=== PATIENT | male | born 1955 | race Two or more races ===

== ENCOUNTER → 2017-06-18 | Outpatient (CLI) | payer BC ==
[2017-06-18 09:13] LABS: BASO % 0.5 % (0.0-1.0); EOS # 0.5 10^3/uL (0.0-0.50); EOS % 6.2 % (0.0-3.0); HEMATOCRIT 42.8 % (42.0-52.0); HEMOGLOBIN 14.2 g/dl (14.0-18.0); IMMATURE GRANULOCYTE % 0.3 % (0-0); LYMPH # 1.5 10^3/uL (1.5-4.5); LYMPH % 19.9 % (24.0-44.0); MEAN CORPUSCULAR HEMOGLOBIN 31.6 pg (27.0-33.0); MEAN CORPUSCULAR HGB CONC 33.2 g/dl (32.0-36.5); MEAN CORPUSCULAR VOLUME 95.1 fl (80.0-96.0); MONO # 0.6 10^3/uL (0.0-0.8); NEUTROPHILS # 4.8 10^3/uL (1.8-7.7); NEUTROPHILS % 65.1 % (36.0-66.0); PLATELET COUNT, AUTOMATED 227 10^3/uL (150-450); RED CELL DISTRIBUTION WIDTH 11.8 % (11.5-14.5); WHITE BLOOD COUNT 7.3 10^3/uL (4.0-10.0)
[2017-06-18 10:00] LABS: ALBUMIN 4.1 GM/DL (3.2-5.2); ALBUMIN/GLOBULIN RATIO 1.58 (1.00-1.93); ALKALINE PHOSPHATASE 74 U/L (45-117); ALT/SGPT 32 U/L (12-78); ANION GAP 8 MEQ/L (8-16); AST/SGOT 28 U/L (7-37); BILIRUBIN,TOTAL 0.7 MG/DL (0.2-1.0); BLOOD UREA NITROGEN 28 MG/DL (7-18); CALCIUM LEVEL 8.7 MG/DL (8.8-10.2); CARBON DIOXIDE LEVEL 29 MEQ/L (21-32); CHLORIDE LEVEL 105 MEQ/L (98-107); CHOLESTEROL LEVEL 177 MG/DL (<200); CREATININE FOR GFR 0.89 MG/DL (0.70-1.30); GLOMERULAR FILTRATION RATE > 60.0 (>49); GLUCOSE, FASTING 82 MG/DL (80-110); HDL CHOLESTEROL 59 MG/DL (>40); LDL CHOLESTEROL 110.2 MG/DL (<100); NON-HDL-C 118 MG/DL; SODIUM LEVEL 142 MEQ/L (136-145); TOTAL PROTEIN 6.7 GM/DL (6.4-8.2); TRIGLYCERIDES LEVEL 39 MG/DL (<150)
[2017-06-18 10:05] LABS: TOTAL 25(OH) VITAMIN D 31.2 NG/ML (30.0-100.0)
== END ==
LOC: M WUC 08:05
DX: R03.0 Elevated blood-pressure reading, without diagnosis of hypertension (principal); Z13.220 Encounter for screening for lipoid disorders; Z13.29 Encounter for screening for other suspected endocrine disorder
CPT/HCPCS: 84443

== ENCOUNTER → 2017-06-29 | Outpatient (CLI) | payer BC | LOC: M WUC 14:57 | DX: M25.78 Osteophyte, vertebrae (principal); M54.42 Lumbago with sciatica, left side; M25.552 Pain in left hip | CPT/HCPCS: 72110 ==

== ENCOUNTER → 2017-12-03 | Outpatient (CLI) | payer BC ==
[2017-12-03 10:47] LABS: HEMATOCRIT 41.7 % (42.0-52.0); HEMOGLOBIN 13.9 g/dl (13.5-17.5); MEAN CORPUSCULAR HEMOGLOBIN 31.9 pg (27.0-33.0); MEAN CORPUSCULAR HGB CONC 33.3 g/dl (32.0-36.5); MEAN CORPUSCULAR VOLUME 95.6 fl (80.0-96.0); PLATELET COUNT, AUTOMATED 189 10^3/uL (150-450); RED BLOOD COUNT 4.36 10^6/uL (4.30-6.10); RED CELL DISTRIBUTION WIDTH 11.5 % (11.5-14.5); WHITE BLOOD COUNT 5.6 10^3/uL (4.0-10.0)
[2017-12-03 10:58] LABS: INR 0.98; PROTHROMBIN TIME 13.1 SECONDS (12.1-14.4)
[2017-12-03 11:23] LABS: ALKALINE PHOSPHATASE 69 U/L (45-117); ALT/SGPT 23 U/L (12-78); ANION GAP 6 MEQ/L (8-16); AST/SGOT 20 U/L (7-37); BILIRUBIN,TOTAL 0.3 MG/DL (0.2-1.0); BLOOD UREA NITROGEN 29 MG/DL (7-18); CALCIUM LEVEL 8.6 MG/DL (8.8-10.2); CARBON DIOXIDE LEVEL 29 MEQ/L (21-32); CHLORIDE LEVEL 108 MEQ/L (98-107); CREATININE FOR GFR 1.01 MG/DL (0.70-1.30); GLOMERULAR FILTRATION RATE > 60.0 (>49); GLUCOSE, FASTING 124 MG/DL (70-100); POTASSIUM SERUM 3.8 MEQ/L (3.5-5.1); SODIUM LEVEL 143 MEQ/L (136-145); TOTAL PROTEIN 6.5 GM/DL (6.4-8.2)
[2017-12-03 11:36] LABS: ERYTHROCYTE SEDIMENTATION RATE 3 mm/hr (0-20)
== END ==
LOC: M ADMPAT 09:24
DX: Z01.818 Encounter for other preprocedural examination (principal); M17.12 Unilateral primary osteoarthritis, left knee
CPT/HCPCS: 71046

== ENCOUNTER 2017-12-22 05:47 | Inpatient (IN) | payer BC ==
[2017-12-22] MEDS: PREGABALIN 75 MG CAP(LYRICA) PO (06:57)
[2017-12-22] MEDS: CelecoXIB 400 MG CAP PO (06:57)
[2017-12-22] MEDS: PERCOCET 5MG/325MG TAB PO ×3 (06:58→20:04)
[2017-12-22] MEDS: LR 1,000 ML IV ×2 (06:59→10:45)
[2017-12-22] MEDS ORDERED: PROPOFOL 200 MG/20 ML VIAL As Ordered ×2 (07:14→07:15)
[2017-12-22] MEDS ORDERED: MIDAZOLAM INJ 2 MG/2 ML VIAL (J2250) As Ordered (07:15)
[2017-12-22] MEDS ORDERED: BUPIVACAINE/DEXTROSE 0.75% 2 ML AMP As Ordered (07:18)
[2017-12-22] MEDS: BUPIVACAINE/EPIN 0.25% 30 ML VIAL As Ordered (08:07)
[2017-12-22] MEDS: EPINEPHrine INJ 1 MG/ML 1ML AMP As Ordered (08:21)
[2017-12-22] MEDS: ceFAZolin 1GM INJ (J0690 PER 500MG) As Ordered (08:21)
[2017-12-22] MEDS: TRANEXAMIC ACID 100 MG/ML 10ML VIAL As Ordered (08:22)
[2017-12-22] MEDS ORDERED: ePHEDrine SULFATE 25 MG/5 ML(5MG/ML) SYRINGE As Ordered (08:29)
[2017-12-22] MEDS ORDERED: PHENYLEPHRINE INJ 10MG/ML VIAL (J2370) As Ordered (08:29)
[2017-12-22] MEDS: BUPIVACAINE LIPOSOME/PF 1.3% 20 ML VIAL (13.3MG/ML)(EXPAREL) As Ordered (09:52)
[2017-12-22] MEDS: BUPIVACAINE HCL 0.5% 30 ML VIAL As Ordered (09:52)
[2017-12-22] MEDS ORDERED: MAGNESIUM SULFATE 1 GM/100 ML D5W BAG (10MG/ML) (J3475) As Ordered (10:26)
[2017-12-22] MEDS: MAG SULF 1GM/100ML (MAG RUN) SINGLE DOSE IV (10:34)
[2017-12-22] MEDS ORDERED: HYDROMORPHONE HCL 0.5 MG/ 0.5 ML SYRINGE (J1170 PER 1) IV ×2 (10:45)
[2017-12-22] MEDS ORDERED: PERCOCET 5MG/325MG TAB PO ×2 (10:45→11:00)
[2017-12-22] MEDS ORDERED: METOCLOPRAMIDE INJ 10MG/2ML VIAL (J2765) IV (10:45)
[2017-12-22] MEDS ORDERED: fentaNYL 100 MCG/2 ML INJECTION (J3010) IV (10:45)
[2017-12-22] MEDS ORDERED: ONDANSETRON 4MG/2ML VIAL (J2405) IV (10:45)
[2017-12-22] MEDS ORDERED: MEPERIDINE INJ 25 MG/ML VIAL (J2175) IV (10:45)
[2017-12-22] MEDS ORDERED: NORTRIPTYLINE 10 MG CAP PO (11:00)
[2017-12-22] MEDS ORDERED: FLEET ENEMA PR (11:00)
[2017-12-22] MEDS ORDERED: ACETAMINOPHEN TAB 650MG DOSE (2X325MG) PO (11:00)
[2017-12-22] MEDS: D5W/LR 1,000 ML IV (12:15)
[2017-12-22] MEDS: MOM 30ML SUSPENSION UDC PO (13:00)
[2017-12-22] MEDS: METAMUCIL (PSYLLIUM) PACKET PO (13:00)
[2017-12-22] MEDS ORDERED: PROMETHAZINE INJ 25 MG/ML VIAL (J2550) IV (13:00)
[2017-12-23] MEDS: PERCOCET 5MG/325MG TAB PO ×4 (01:00→20:23)
[2017-12-23 06:55] LABS: HEMATOCRIT 33.9 % (42.0-52.0); HEMOGLOBIN 11.7 g/dl (13.5-17.5); MEAN CORPUSCULAR HEMOGLOBIN 32.1 pg (27.0-33.0); MEAN CORPUSCULAR HGB CONC 34.5 g/dl (32.0-36.5); MEAN CORPUSCULAR VOLUME 93.1 fl (80.0-96.0); PLATELET COUNT, AUTOMATED 157 10^3/uL (150-450); RED BLOOD COUNT 3.64 10^6/uL (4.30-6.10); RED CELL DISTRIBUTION WIDTH 11.9 % (11.5-14.5)
[2017-12-23] MEDS: MIRALAX *UNIT DOSE* 17GM PACKET PO (10:56)
[2017-12-23] MEDS: RIVAROXABAN 10 MG TAB (XARELTO) PO (10:57)
[2017-12-23] MEDS: METAMUCIL (PSYLLIUM) PACKET PO (10:57)
[2017-12-23] MEDS: MOM 30ML SUSPENSION UDC PO (10:57)
[2017-12-23] MEDS: CelecoXIB (CeleBREX) 100 MG CAP PO (10:58)
[2017-12-24] MEDS: PERCOCET 5MG/325MG TAB PO ×3 (01:33→10:06)
[2017-12-24] MEDS: CelecoXIB (CeleBREX) 100 MG CAP PO (10:04)
[2017-12-24] MEDS: MOM 30ML SUSPENSION UDC PO (10:04)
[2017-12-24] MEDS: MIRALAX *UNIT DOSE* 17GM PACKET PO (10:04)
[2017-12-24] MEDS: METAMUCIL (PSYLLIUM) PACKET PO (10:04)
[2017-12-24] MEDS: RIVAROXABAN 10 MG TAB (XARELTO) PO (10:04)
== END 2017-12-24 10:30 | disposition home or self-care (01) | DRG 301 ==
LOC: M OR 05:47 → M MS5PR 12:05
PROC: 0SRB0JA Replacement of Left Hip Joint with Synthetic Substitute, Uncemented, Open Approach (ICD-10-PCS; principal; 2017-12-22 07:30)
DX: M16.12 Unilateral primary osteoarthritis, left hip (principal); Z98.52 Vasectomy status

== ENCOUNTER 2017-12-28 12:35 | Outpatient (RCR) | payer BC | END 2018-01-05 | LOC: M PT 12:35 | DX: Z47.89 Encounter for other orthopedic aftercare (principal); Z96.642 Presence of left artificial hip joint | CPT/HCPCS: 97110 ==

== ENCOUNTER 2018-01-07 09:15 | Outpatient (RCR) | payer BC | END 2018-02-05 | LOC: M PT 09:15 | DX: Z47.89 Encounter for other orthopedic aftercare (principal); Z96.642 Presence of left artificial hip joint | CPT/HCPCS: 97110 ==

== ENCOUNTER → 2018-05-10 | Outpatient (REF) | payer BC ==
[2018-05-10 20:03] LABS: BASO % 0.7 % (0.0-1.0); EOS # 0.2 10^3/uL (0.0-0.50); HEMATOCRIT 49.7 % (42.0-52.0); IMMATURE GRANULOCYTE % 0.3 % (0-3.0); LYMPH # 1.1 10^3/uL (1.5-4.5); LYMPH % 19.8 % (24.0-44.0); MEAN CORPUSCULAR HEMOGLOBIN 30.9 pg (27.0-33.0); MEAN CORPUSCULAR HGB CONC 32.2 g/dl (32.0-36.5); MEAN CORPUSCULAR VOLUME 95.9 fl (80.0-96.0); MONO # 0.5 10^3/uL (0.0-0.8); MONO % 8.7 % (0.0-5.0); NEUTROPHILS # 3.9 10^3/uL (1.8-7.7); NEUTROPHILS % 67.5 % (36.0-66.0); PLATELET COUNT, AUTOMATED 216 10^3/uL (150-450); RED BLOOD COUNT 5.18 10^6/uL (4.30-6.10); RED CELL DISTRIBUTION WIDTH 12.4 % (11.5-14.5); WHITE BLOOD COUNT 5.7 10^3/uL (4.0-10.0)
[2018-05-10 20:07] LABS: ALBUMIN 4.3 GM/DL (3.2-5.2); ALBUMIN/GLOBULIN RATIO 1.48 (1.00-1.93); ALKALINE PHOSPHATASE 83 U/L (45-117); ALT/SGPT 27 U/L (12-78); ANION GAP 6 MEQ/L (8-16); AST/SGOT 22 U/L (7-37); BILIRUBIN,TOTAL 0.5 MG/DL (0.2-1.0); BLOOD UREA NITROGEN 14 MG/DL (7-18); CARBON DIOXIDE LEVEL 31 MEQ/L (21-32); CHLORIDE LEVEL 105 MEQ/L (98-107); CREATININE FOR GFR 0.86 MG/DL (0.70-1.30); GLOMERULAR FILTRATION RATE > 60.0 (>49); GLUCOSE, FASTING 87 MG/DL (70-100); POTASSIUM SERUM 3.8 MEQ/L (3.5-5.1); SODIUM LEVEL 142 MEQ/L (136-145); TOTAL PROTEIN 7.2 GM/DL (6.4-8.2)
[2018-05-12 11:23] LABS: HEPATITIS C VIRUS ABY INDEX 0.1 INDEX (<0.8)
== END ==
LOC: M SFHCADAM 16:55
DX: R03.0 Elevated blood-pressure reading, without diagnosis of hypertension (principal); E78.00 Pure hypercholesterolemia, unspecified; Z11.59 Encounter for screening for other viral diseases; M79.673 Pain in unspecified foot; Z12.11 Encounter for screening for malignant neoplasm of colon

== ENCOUNTER → 2020-04-02 | Outpatient (REF) | payer BC ==
[~2020-04-02] MED LIST: IBUP200C25 PO; MAGN1TAB26 PO; MULT1TAB10 PO; PERC5TAB12 PO; XARE10TA PO
[2020-04-02 13:26] LABS: BASO % 0.5 % (0.0-1.0); EOS # 0.1 10^3/uL (0.0-0.5); EOS % 2.4 % (0.0-3.0); HEMATOCRIT 46.9 % (42.0-52.0); HEMOGLOBIN 14.9 g/dl (13.5-17.5); LYMPH # 0.7 10^3/uL (1.5-5.0); LYMPH % 12.4 % (24.0-44.0); MEAN CORPUSCULAR HEMOGLOBIN 31.5 pg (27.0-33.0); MEAN CORPUSCULAR HGB CONC 31.8 g/dl (32.0-36.5); MEAN CORPUSCULAR VOLUME 99.2 fl (80.0-96.0); MONO # 0.5 10^3/uL (0.0-0.8); MONO % 8.2 % (0.0-5.0); NEUTROPHILS # 4.4 10^3/uL (1.5-8.5); NEUTROPHILS % 76.2 % (36.0-66.0); PLATELET COUNT, AUTOMATED 185 10^3/uL (150-450); RED BLOOD COUNT 4.73 10^6/uL (4.30-6.10); WHITE BLOOD COUNT 5.7 10^3/uL (4.0-10.0)
[2020-04-02 13:59] LABS: ALBUMIN 3.8 GM/DL (3.2-5.2); ALT/SGPT 25 U/L (12-78); BILIRUBIN,TOTAL 0.6 MG/DL (0.2-1.0); BLOOD UREA NITROGEN 15 MG/DL (7-18); CARBON DIOXIDE LEVEL 32 MEQ/L (21-32); CHLORIDE LEVEL 107 MEQ/L (98-107); CHOLESTEROL LEVEL 190 MG/DL (<200); CHOLESTEROL RISK RATIO 3.166 (<5); CREATININE FOR GFR 0.85 MG/DL (0.70-1.30); GLOMERULAR FILTRATION RATE > 60.0 (>49); GLUCOSE, FASTING 87 MG/DL (70-100); HDL CHOLESTEROL 60 MG/DL (>40); LDL CHOLESTEROL 117 MG/DL (<100); NON-HDL-C 130 MG/DL; POTASSIUM SERUM 4.4 MEQ/L (3.5-5.1); SODIUM LEVEL 140 MEQ/L (136-145); TOTAL PROTEIN 6.6 GM/DL (6.4-8.2); TRIGLYCERIDES LEVEL 67 MG/DL (<150)
== END ==
LOC: M SFHCADAM 10:02
PROVIDERS: ATTEND Family Medicine
DX: Z00.00 Encounter for general adult medical examination without abnormal findings (principal)

== ENCOUNTER → 2020-08-01 | Outpatient (CLI) | payer BC, MEDICARE ==
--- NOTE | 2020-08-01 12:45 | REP ---
INDICATION: PAIN IN LEFT SHOULDER. COMPARISON: None. TECHNIQUE: Three views left shoulder. FINDINGS: No acute fracture, dislocation or intrinsic bone disease. The joint spaces appear unremarkable. There does appear to be mild spurring of the glenoid. IMPRESSION: Mild spurring of the glenoid. <Electronically signed by Marcus Maldonado > 08/01/20 [id number]
== END ==
LOC: M ADAMS 10:34
PROVIDERS: ATTEND Family Medicine
DX: M25.512 Pain in left shoulder (principal)

== ENCOUNTER → 2020-08-03 | Outpatient (CLI) | payer MEDICARE ==
--- NOTE | 2020-08-03 16:31 | REP ---
INDICATION: MASS LT AXILLA. COMPARISON: None. TECHNIQUE: Real-time sonographic evaluation of left axilla performed. FINDINGS: A heterogeneous solid mass is visualized at the site of the palpable lump in the left axilla. There is internal blood flow with Doppler evaluation. The mass measures 4.4 x 3.3 x 4.4 cm. IMPRESSION: Suspicious appearing heterogeneous mass left axilla. Recommend ultrasound-guided biopsy. <Electronically signed by Marcus Maldonado > 08/03/20 [id number]
== END ==
LOC: M RAD 13:51
PROVIDERS: ATTEND Family Medicine
DX: R22.32 Localized swelling, mass and lump, left upper limb (principal)

== ENCOUNTER → 2020-08-14 | Outpatient (CLI) | payer MEDICARE ==
[~2020-08-14] MED LIST changes: +LIDOCAINE 1% MDV 20ML VIAL As Ordered ONE; +MULT-40 PO; +SILD25TA2 PO; +SODIUM BICARBONATE 8.4% INJ 50MEQ 50 ML VIAL As Ordered ONE
[2020-08-14 12:46] VITALS: BP 152/72
--- NOTE | 2020-08-14 16:17 | REP ---
INDICATION: SOFT TISSUE MASS LT AXILLA. COMPARISON: None. TECHNIQUE: The procedure was performed under the direct supervision of Dr. Maldonado. The patient has a history of a 4.4 x 3.3 x 4.4 cm heterogeneous mass in the left axilla seen on a previous ultrasound dated 08/03/2020. The risks and benefits of the procedure were explained to the patient and informed consent was obtained. The left axillary mass was localized using ultrasound guidance. The skin was prepped and draped in a sterile fashion. 1% lidocaine was used as a local anesthetic. Using ultrasound guidance a 17/18 gauge coaxial needle biopsy system was inserted and advanced into the mass. Eight core biopsy samples were obtained and sent to the lab. The patient tolerated the procedure well and there were no immediate complications. After the appropriate amount to monitor convalescence the patient was discharged from the department. FINDINGS: None IMPRESSION: Ultrasound-guided left axillary mass biopsy. <Electronically signed by Kg Dash > 08/14/20 [id number] <Electronically signed by Marcus Maldonado > 08/14/20 [id number]
== END ==
LOC: M IRPRO 11:43
PROVIDERS: ATTEND Family Medicine
DX: C82.90 Follicular lymphoma, unspecified, unspecified site (principal); M79.89 Other specified soft tissue disorders

== ENCOUNTER → 2020-08-21 | Outpatient (REF) | payer BC, MEDICARE ==
[~2020-08-21] MED LIST changes: -LIDOCAINE 1% MDV 20ML VIAL As Ordered ONE; -MULT-40 PO; -SILD25TA2 PO; -SODIUM BICARBONATE 8.4% INJ 50MEQ 50 ML VIAL As Ordered ONE
[2020-08-21 14:04] LABS: BASO # 0.1 10^3/uL (0.0-0.2); BASO % 0.9 % (0.0-1.0); EOS # 0.3 10^3/uL (0.0-0.5); HEMATOCRIT 48.2 % (42.0-52.0); HEMOGLOBIN 15.7 g/dl (13.5-17.5); LYMPH % 18.6 % (24.0-44.0); MEAN CORPUSCULAR HEMOGLOBIN 31.7 pg (27.0-33.0); MEAN CORPUSCULAR HGB CONC 32.6 g/dl (32.0-36.5); MEAN CORPUSCULAR VOLUME 97.2 fl (80.0-96.0); MONO # 0.6 10^3/uL (0.0-0.8); MONO % 10.5 % (2.0-8.0); NEUTROPHILS # 3.5 10^3/uL (1.5-8.5); NEUTROPHILS % 64.4 % (36.0-66.0); PLATELET COUNT, AUTOMATED 173 10^3/uL (150-450); RED BLOOD COUNT 4.96 10^6/uL (4.30-6.10); WHITE BLOOD COUNT 5.4 10^3/uL (4.0-10.0)
[2020-08-21 15:50] LABS: ALBUMIN 3.9 GM/DL (3.2-5.2); ALT/SGPT 21 U/L (12-78); BILIRUBIN,TOTAL 0.4 MG/DL (0.2-1.0); BLOOD UREA NITROGEN 22 MG/DL (7-18); CALCIUM LEVEL 8.9 MG/DL (8.8-10.2); CARBON DIOXIDE LEVEL 31 MEQ/L (21-32); CHLORIDE LEVEL 106 MEQ/L (98-107); CREATININE FOR GFR 0.98 MG/DL (0.70-1.30); GLOMERULAR FILTRATION RATE > 60.0 (>49); GLUCOSE, FASTING 91 MG/DL (70-100); LDH LACTATE DEHYDROGENASE 179 U/L (87-241); POTASSIUM SERUM 4.5 MEQ/L (3.5-5.1); SODIUM LEVEL 140 MEQ/L (136-145); TOTAL PROTEIN 6.3 GM/DL (6.4-8.2)
[2020-08-21 15:57] LABS: HEPATITIS B SURFACE ANTIBODY NEGATIVE (POSITIVE)
[2020-08-21 16:08] LABS: HEPATITIS B SURFACE ANTIGEN NEGATIVE (NEGATIVE)
[2020-08-21 16:36] LABS: HIV 1&2 SCREEN CENTAUR NEGATIVE (NEGATIVE)
== END ==
LOC: M SFHCADAM 08:15
PROVIDERS: ATTEND Family Medicine
DX: C82.94 Follicular lymphoma, unspecified, lymph nodes of axilla and upper limb (principal)

== ENCOUNTER → 2020-08-31 | Outpatient (CLI) | payer MEDICARE ==
[~2020-08-31] MED LIST changes: +ISOVUE-370 76% 100ML VIAL As Ordered ONE
--- NOTE | 2020-08-31 11:40 | REP ---
INDICATION: FOLLICULAR LYMPHOMA OF AXILLA. COMPARISON: None. TECHNIQUE: CT of the chest with IV contrast. FINDINGS: There is a large left axillary node measuring up to 3.3 cm short axis with a replaced fatty hilus. There are several other smaller borderline enlarged left axillary lymph nodes all with replaced fatty reynaldo measuring up to approximately 10 mm short axis. There is an enlarged right axillary lymph node with a replaced fatty hilus measuring up to 12 mm short axis there are a few other left axillary lymph nodes with replaced fatty reynaldo. There is an enlarged right axillary lymph node measuring up to 20 mm short axis, however, with a normal fatty hilus. No definite adenopathy is identified at the thoracic inlet. There is a nonenlarged anterior mediastinal node measuring up to 6 mm short axis but with a replaced fatty hilus. There are several other borderline enlarged nodes at the inter coal pulmonic window with replaced fatty reynaldo. Is a borderline enlarged left hilar node measuring up to 7 mm with a replaced fatty hilus. There are calcified granulomas in the right hilus. There are no infiltrates or pleural effusions. There is a there are calcified granulomas in the right lung lower lobe. There are no other lung masses or nodules. There are no pleural effusions. There is minor fibro linear scarring in the right lower lobe. Thoracic aorta is unremarkable. Cardiac size is normal. There is no pericardial effusion. There are no lytic, blastic or destructive skeletal changes. There is degenerative disc disease throughout the thoracic spine. IMPRESSION: There are abnormal lymph nodes in both right and left axilla, mediastinum and left hilus as described. There are calcified granulomas in the lower lobe of the right lung and in the right hilus. There is fibro linear scarring in the right lower lobe. There are no infiltrates or effusions. <Electronically signed by Marcus García > 08/31/20 [id number]
--- NOTE | 2020-08-31 11:50 | REP ---
INDICATION: FOLLICULAR LYMPHOMA OF AXILLA. COMPARISON: Chest CT performed the same date. TECHNIQUE: Abdomen pelvis CT with IV contrast, without bowel contrast with immediate and delayed scanning. FINDINGS: The liver and spleen appear normal size and homogeneous. There is a small calcification in the liver compatible with calcified granuloma. There are small calcifications in the spleen compatible with calcified granulomas. The gallbladder and pancreas are unremarkable. The adrenals and kidneys are unremarkable. The abdominal aorta is unremarkable, however there is a periaortic mass on the left measuring approximately 2.3 by 2.8 by 2.6 cm. This could represent confluent periaortic adenopathy, however infectious etiology is also possible. There is no mesenteric lymph node enlargement. No ascites. Pelvis: The appendix is unremarkable. No definite adenopathy or ascites. There is diverticulosis of the sigmoid colon. There is no CT finding of diverticulitis. The terminal ileum is unremarkable. There is a left hip arthroplasty. There are no lytic, destructive or blastic skeletal changes. IMPRESSION: There is a periaortic soft tissue mass on the left as described which could be confluent adenopathy or infectious. No other abdominal or pelvic lymph nodes are identified. There are no masses. No ascites. No adenopathy otherwise. Sigmoid diverticulosis without diverticulitis. Left hip arthroplasty. <Electronically signed by Marcus García > 08/31/20 [id number]
== END ==
LOC: M RAD 08:07
PROVIDERS: ATTEND Family Medicine
DX: C82.94 Follicular lymphoma, unspecified, lymph nodes of axilla and upper limb (principal); J84.10 Pulmonary fibrosis, unspecified; R19.09 Other intra-abdominal and pelvic swelling, mass and lump
CPT/HCPCS: 71260; 74177; Q9967

== ENCOUNTER → 2021-03-22 | Outpatient (REF) | payer BC, MEDICARE ==
[~2021-03-22] MED LIST changes: -ISOVUE-370 76% 100ML VIAL As Ordered ONE; +MULT-40 PO; +SILD25TA2 PO
== END ==
LOC: M SFHCADAM 10:02
PROVIDERS: ATTEND Family Medicine
DX: R09.81 Nasal congestion (principal)

== ENCOUNTER → 2021-10-23 | Outpatient (REF) | payer MEDICARE, BC ==
[~2021-10-23] MED LIST changes: +CLAR10CA3 PO
[2021-10-23 15:54] LABS: ALBUMIN 3.8 GM/DL (3.2-5.2); ALT/SGPT 20 U/L (12-78); BILIRUBIN,TOTAL 0.8 MG/DL (0.2-1.0); BLOOD UREA NITROGEN 17 MG/DL (7-18); CALCIUM LEVEL 9.5 MG/DL (8.8-10.2); CARBON DIOXIDE LEVEL 26 MEQ/L (21-32); CHLORIDE LEVEL 107 MEQ/L (98-107); CHOLESTEROL LEVEL 197 MG/DL (<200); CREATININE FOR GFR 0.93 MG/DL (0.70-1.30); GLOMERULAR FILTRATION RATE > 60.0 (>49); GLUCOSE, FASTING 86 MG/DL (70-100); HDL CHOLESTEROL 65 MG/DL (>40); LDL CHOLESTEROL 124 MG/DL (<100); NON-HDL-C 132 MG/DL; POTASSIUM SERUM 3.5 MEQ/L (3.5-5.1); SODIUM LEVEL 141 MEQ/L (136-145); TOTAL PROTEIN 6.9 GM/DL (6.4-8.2); TRIGLYCERIDES LEVEL 42 MG/DL (<150)
== END ==
LOC: M LAB REF 14:58
PROVIDERS: ATTEND Family Medicine
DX: E78.00 Pure hypercholesterolemia, unspecified (principal)

== ENCOUNTER → 2021-11-29 | Outpatient (CLI) | payer MEDICARE ==
[~2021-11-29] MED LIST changes: +GASTROGRAFIN SOLUTION 30ML (Q9963) ONE; +ISOVUE-370 76% 100ML VIAL ONE
== END ==
LOC: M PLAIMG 11:56
PROVIDERS: ATTEND Specialist
DX: C82.90 Follicular lymphoma, unspecified, unspecified site (principal)
CPT/HCPCS: 71260; 74177; Q9963; Q9967

== ENCOUNTER → 2022-04-07 | Outpatient (CLI) | payer MEDICARE ==
[~2022-04-07] MED LIST changes: -GASTROGRAFIN SOLUTION 30ML (Q9963) ONE; -ISOVUE-370 76% 100ML VIAL ONE
== END ==
LOC: M PLARAD 09:35
PROVIDERS: ATTEND Internal Medicine Medical Oncology
DX: C91.10 Chronic lymphocytic leukemia of B-cell type not having achieved remission (principal)
CPT/HCPCS: 78815; A9552

== ENCOUNTER → 2022-04-21 | Outpatient (CLI) | payer MEDICARE ==
[~2022-04-21] MED LIST changes: +ACET325C5 PO; +BENA25CA4 PO; +LIDOCAINE 1% MDV 20ML VIAL As Ordered ONE; +MIDAZOLAM INJ 2MG/2ML VIAL (J2250 PER 1MG) As Ordered ONE; +NS 1,000 ML IV SCH; +SENO8.6T5 PO; +VANCOMYCIN 1000MG/20ML VIAL As Ordered ONE; +VANCOMYCIN HCL 1,000 MG, VIAL MATE ADAPTER 1 EACH in NS 250 ML IV ONE; +ceFAZolin 2 GM/D5W 50 ML IV BAG (J0690 PER 500MG) As Ordered ONE; +diphenhydrAMINE 50MG/ML VIAL As Ordered ONE; +fentaNYL 100 MCG/2 ML INJECTION As Ordered ONE
[2022-04-21 11:45] VITALS: BP 163/74
== END ==
LOC: M IRPRO 07:18
PROVIDERS: ATTEND Specialist
DX: C82.90 Follicular lymphoma, unspecified, unspecified site (principal)
CPT/HCPCS: 36561; 87635; 99152; 99153; C1769; C1788; C1894; J1200; J1642; J1644; J2250; J3010; J3370

== ENCOUNTER → 2022-05-06 | Outpatient (POV) | payer MEDICARE ==
[~2022-05-06] VITALS: Ht 165.1 cm; Wt 72.7 kg
[~2022-05-06] MED LIST changes: +ACET500T15 PO; +EX-L15TA PO; +IBUP-1764 PO; -LIDOCAINE 1% MDV 20ML VIAL As Ordered ONE; -MIDAZOLAM INJ 2MG/2ML VIAL (J2250 PER 1MG) As Ordered ONE; -NS 1,000 ML IV SCH; -VANCOMYCIN 1000MG/20ML VIAL As Ordered ONE; -VANCOMYCIN HCL 1,000 MG, VIAL MATE ADAPTER 1 EACH in NS 250 ML IV ONE; -ceFAZolin 2 GM/D5W 50 ML IV BAG (J0690 PER 500MG) As Ordered ONE; -diphenhydrAMINE 50MG/ML VIAL As Ordered ONE; -fentaNYL 100 MCG/2 ML INJECTION As Ordered ONE
[2022-05-06 08:25] VITALS: BP 177/86
== END ==
LOC: M IRPOV 08:15
PROVIDERS: ATTEND Radiology Diagnostic Radiology
DX: Z45.2 Encounter for adjustment and management of vascular access device (principal); Z88.0 Allergy status to penicillin

== ENCOUNTER 2022-05-10 22:34 | Inpatient (IN) | payer MEDICARE ==
[~2022-05-10] VITALS: Ht 165.1 cm; Wt 78.8 kg
[~2022-05-10 22:34] MED LIST changes: -ACET500T15 PO; -EX-L15TA PO; -IBUP-1764 PO
[2022-05-11] VITALS (15 sets, daily range): BP systolic 128–147; BP diastolic 60–71; O2SAT 94–97
[2022-05-11] MEDS ORDERED: SODIUM CHLORIDE 0.9% INJ 10 ML SYR IV PRN (02:00)
[2022-05-11 04:06] LABS: BASO # 0.1 10^3/uL (0.0-0.2); BASO % 0.6 % (0.0-1.0); EOS # 0.4 10^3/uL (0.0-0.5); EOS % 3.8 % (0.0-3.0); HEMATOCRIT 32.1 % (42.0-52.0); HEMOGLOBIN 10.6 g/dl (13.5-17.5); LYMPH # 0.5 10^3/uL (1.5-5.0); MEAN CORPUSCULAR HEMOGLOBIN 31.3 pg (27.0-33.0); MEAN CORPUSCULAR VOLUME 94.7 fl (80.0-96.0); MONO # 0.9 10^3/uL (0.0-0.8); MONO % 7.5 % (2.0-8.0); NEUTROPHILS # 9.8 10^3/uL (1.5-8.5); NEUTROPHILS % 83.8 % (36.0-66.0); PLATELET COUNT, AUTOMATED 263 10^3/uL (150-450); RED BLOOD COUNT 3.39 10^6/uL (4.30-6.10); WHITE BLOOD COUNT 11.7 10^3/uL (4.0-10.0)
[2022-05-11 04:36] LABS: BILIRUBIN,DIRECT 0.2 MG/DL (<0.4); BILIRUBIN,TOTAL 0.5 MG/DL (0.3-1.2); CALCIUM LEVEL 10.6 MG/DL (8.3-10.6); CREATININE FOR GFR 5.49 MG/DL (0.70-1.30); GLOMERULAR FILTRATION RATE 11.1 (>49); POTASSIUM SERUM 4.3 MMOL/L (3.5-5.1); TOTAL PROTEIN 5.6 G/DL (5.7-8.2)
[2022-05-11] MEDS: NS 1,000 ML IV SCH ×3 (06:52→17:29)
[2022-05-11] MEDS ORDERED: EX-L15TA PO (06:54)
[2022-05-11] MEDS ORDERED: IBUP-1764 PO (06:54)
[2022-05-11] MEDS ORDERED: ACET500T15 PO (06:54)
[2022-05-11] MEDS ORDERED: HOME MED LIST COMPLETE! XX SCH (06:55)
[2022-05-11] MEDS ORDERED: HYDROMORPHONE HCL 0.5 MG/ 0.5 ML SYRINGE (J1170 PER 1) IV PRN ×2 (07:35)
[2022-05-11] MEDS ORDERED: PILL CUTTER 1 EACH XX PRN (07:40)
[2022-05-11] MEDS ORDERED: amLODIPine 5 MG TAB PO ONE ×2 (08:00→16:05)
[2022-05-11] MEDS: cefTRIAXone SOD 1 GM in D5W MINI-BAG PLUS 50 ML IV SCH (08:15)
[2022-05-11] MEDS ORDERED: MIDAZOLAM INJ 2MG/2ML VIAL (J2250 PER 1MG) As Ordered ONE (13:38)
[2022-05-11] MEDS ORDERED: fentaNYL 100 MCG/2 ML INJECTION As Ordered ONE (13:38)
[2022-05-11] MEDS ORDERED: propofoL 200 MG/20 ML VIAL As Ordered ONE (13:43)
[2022-05-11] MEDS ORDERED: LIDOCAINE 2% 100MG/5ML SDV (FOR ANES.) As Ordered ONE (13:44)
[2022-05-11] MEDS ORDERED: ISOVUE-300 61% 50ML VIAL As Ordered ONE (13:52)
[2022-05-11] MEDS ORDERED: ROCURONIUM BROMIDE 50 MG/5 ML VIAL As Ordered ONE (14:45)
[2022-05-11] MEDS ORDERED: SUGAMMADEX SODIUM 500 MG/5 ML VIAL (BRIDION) As Ordered ONE (15:30)
[2022-05-11] MEDS ORDERED: KETOROLAC 60MG 2ML VIAL As Ordered ONE (15:30)
[2022-05-11] MEDS ORDERED: ONDANSETRON 4MG 2ML VIAL As Ordered ONE (15:30)
[2022-05-11] MEDS: TEMAZEPAM 7.5 MG CAP PO PRN (20:47)
[2022-05-11 21:14] LABS: CREATININE FOR GFR 5.67 MG/DL (0.70-1.30); GLOMERULAR FILTRATION RATE 10.7 (>49)
[2022-05-11] MEDS ORDERED: HYOSCYAMINE SULFATE 0.125 MG SUBL TABLET PO ONE (22:00)
[2022-05-12] VITALS (13 sets, daily range): BP systolic 125–154; BP diastolic 61–76; O2SAT 94–97
[2022-05-12] MEDS: oxyBUTYnin 5 MG TAB PO PRN (00:03)
[2022-05-12] MEDS: NS 1,000 ML IV SCH ×3 (03:23→23:53)
[2022-05-12 05:24] LABS: HEMATOCRIT 31.8 % (42.0-52.0); HEMOGLOBIN 10.3 g/dl (13.5-17.5); MEAN CORPUSCULAR HGB CONC 32.4 g/dl (32.0-36.5); MEAN CORPUSCULAR VOLUME 95.8 fl (80.0-96.0); PLATELET COUNT, AUTOMATED 289 10^3/uL (150-450); RED BLOOD COUNT 3.32 10^6/uL (4.30-6.10); WHITE BLOOD COUNT 11.7 10^3/uL (4.0-10.0)
[2022-05-12 05:56] LABS: MAGNESIUM LEVEL 1.8 MG/DL (1.8-2.4)
[2022-05-12 05:57] LABS: CALCIUM LEVEL 9.9 MG/DL (8.3-10.6); CREATININE FOR GFR 5.11 MG/DL (0.70-1.30); PHOSPHORUS LEVEL 5.1 MG/DL (2.4-5.1)
[2022-05-12] MEDS ORDERED: FLUBLOK(EGG FREE)(QUAD)INFLUENZA VACC 0.5ML SYRINGE 18YRS & OLDER IM.IMMUN ONE (09:00)
[2022-05-12] MEDS: cefTRIAXone SOD 1 GM in D5W MINI-BAG PLUS 50 ML IV SCH (09:04)
[2022-05-12] MEDS: amLODIPine 5 MG TAB PO SCH (09:05)
[2022-05-12] MEDS: HEPARIN SOD (PORCINE) 5000UNITS/ML 1ML VIAL/SYRINGE SQ SCH ×2 (13:11→21:13)
[2022-05-12] MEDS: ACETAMINOPHEN TAB 650MG DOSE (2X325MG) PO PRN (22:31)
[2022-05-12] MEDS: TEMAZEPAM 7.5 MG CAP PO PRN (22:31)
[2022-05-13] VITALS (7 sets, daily range): BP systolic 128–156; BP diastolic 57–73
[2022-05-13] MEDS: oxyBUTYnin 5 MG TAB PO PRN (04:34)
[2022-05-13 06:11] LABS: HEMATOCRIT 30.6 % (42.0-52.0); HEMOGLOBIN 9.6 g/dl (13.5-17.5); MEAN CORPUSCULAR HEMOGLOBIN 30.7 pg (27.0-33.0); MEAN CORPUSCULAR HGB CONC 31.4 g/dl (32.0-36.5); MEAN CORPUSCULAR VOLUME 97.8 fl (80.0-96.0); PLATELET COUNT, AUTOMATED 268 10^3/uL (150-450); RED BLOOD COUNT 3.13 10^6/uL (4.30-6.10); WHITE BLOOD COUNT 9.3 10^3/uL (4.0-10.0)
[2022-05-13 06:45] LABS: MAGNESIUM LEVEL 1.5 MG/DL (1.8-2.4)
[2022-05-13 06:53] LABS: CALCIUM LEVEL 9.1 MG/DL (8.3-10.6); CREATININE FOR GFR 3.22 MG/DL (0.70-1.30); GLOMERULAR FILTRATION RATE 20.5 (>49); PHOSPHORUS LEVEL 3.7 MG/DL (2.4-5.1); POTASSIUM SERUM 4.4 MMOL/L (3.5-5.1)
[2022-05-13] MEDS ORDERED: LIDOCAINE 1% MDV 20ML VIAL As Ordered ONE (08:14)
[2022-05-13 08:40] LABS: BASO # 0.1 10^3/uL (0.0-0.2); BASO % 0.8 % (0.0-1.0); EOS # 0.4 10^3/uL (0.0-0.5); EOS % 3.9 % (0.0-3.0); LYMPH # 0.8 10^3/uL (1.5-5.0); LYMPH % 8.9 % (24.0-44.0); MONO # 0.9 10^3/uL (0.0-0.8); MONO % 10.1 % (2.0-8.0)
[2022-05-13] MEDS: cefTRIAXone SOD 1 GM in D5W MINI-BAG PLUS 50 ML IV SCH (09:44)
[2022-05-13] MEDS: amLODIPine 5 MG TAB PO SCH (09:45)
[2022-05-13] MEDS: NS 1,000 ML IV SCH ×2 (10:05→19:20)
[2022-05-13] MEDS ORDERED: MAG SULF 1GM/100ML (MAG RUN) 1 GM in IV 1 EA IV ONE (10:05)
[2022-05-13] MEDS ORDERED: NS 1,000 ML IV ONE (10:05)
[2022-05-13] MEDS ORDERED: CALCIUM CARBONATE 500 MG CHEW U/D PO PRN (17:30)
[2022-05-13] MEDS ORDERED: SENOKOT S TAB PO PRN (17:30)
[2022-05-13] MEDS ORDERED: BISACODYL 5 MG TAB PO PRN (17:30)
[2022-05-13] MEDS ORDERED: MIRALAX *UNIT DOSE* 17GM PACKET PO PRN (17:30)
[2022-05-13] MEDS ORDERED: FLEET ENEMA PR PRN (17:30)
[2022-05-13] MEDS ORDERED: MOM 30ML SUSPENSION UDC PO PRN (17:30)
[2022-05-13] MEDS: ACETAMINOPHEN TAB 650MG DOSE (2X325MG) PO PRN (17:56)
[2022-05-13] MEDS ORDERED: PANTOPRAZOLE 40MG TAB (PROTONIX) PO ONE (19:40)
[2022-05-13] MEDS: traMADol 50 MG TAB PO PRN (19:57)
[2022-05-13] MEDS: TEMAZEPAM 7.5 MG CAP PO PRN (21:17)
[2022-05-13] MEDS: HEPARIN SOD (PORCINE) 5000UNITS/ML 1ML VIAL/SYRINGE SQ SCH (21:17)
[2022-05-14] MEDS: ACETAMINOPHEN TAB 650MG DOSE (2X325MG) PO PRN ×2 (00:11→08:24)
[2022-05-14 02:00] VITALS: BP 151/73
[2022-05-14] MEDS ORDERED: SODIUM CHLORIDE 0.9% INJ 10 ML SYR IV PRN (02:10)
[2022-05-14] MEDS: HEPARIN SOD (PORCINE) 5000UNITS/ML 1ML VIAL/SYRINGE SQ SCH (05:07)
[2022-05-14] MEDS: traMADol 50 MG TAB PO PRN (05:19)
[2022-05-14 06:00] VITALS: BP 156/78
[2022-05-14] MEDS: cefTRIAXone SOD 1 GM in D5W MINI-BAG PLUS 50 ML IV SCH (08:23)
[2022-05-14] MEDS ORDERED: MAG SULF 1GM/100ML (MAG RUN) 1 GM in IV 1 EA IV ONE ×2 (08:30→10:00)
[2022-05-14 08:52] LABS: HEMATOCRIT 31.6 % (42.0-52.0); HEMOGLOBIN 10.1 g/dl (13.5-17.5); MEAN CORPUSCULAR HEMOGLOBIN 31.3 pg (27.0-33.0); MEAN CORPUSCULAR VOLUME 97.8 fl (80.0-96.0); PLATELET COUNT, AUTOMATED 258 10^3/uL (150-450); RED BLOOD COUNT 3.23 10^6/uL (4.30-6.10); WHITE BLOOD COUNT 11.5 10^3/uL (4.0-10.0)
[2022-05-14] MEDS ORDERED: SODIUM CHLORIDE 0.9% INJ 10 ML SYR IV SCH (09:00)
[2022-05-14] MEDS ORDERED: MAGNESIUM OXIDE 400MG TAB (MAG-OX) PO SCH (09:00)
[2022-05-14] MEDS ORDERED: PANTOPRAZOLE 40MG TAB (PROTONIX) PO SCH (09:00)
[2022-05-14 09:31] LABS: CREATININE FOR GFR 2.02 MG/DL (0.70-1.30); GLOMERULAR FILTRATION RATE 35.1 (>49); POTASSIUM SERUM 4.3 MMOL/L (3.5-5.1)
[2022-05-14 10:00] VITALS: BP 147/83
[2022-05-14] MEDS ORDERED: MAGN400T2 PO (11:34)
[2022-05-14] MEDS ORDERED: TRAM50TA2 PO (11:34)
[2022-05-14] MEDS ORDERED: OXYB5TAB10 PO (11:34)
== END 2022-05-14 13:53 | disposition home or self-care (01) | DRG 660 ==
LOC: M ED 22:34 → M ED INP 05-11 07:27 → M PCU 05-11 17:12 → M MSPAV 05-12 21:02
PROVIDERS: ADMIT Internal Medicine; ATTEND General Practice
PROC: 0T788DZ Dilation of Bilateral Ureters with Intraluminal Device, Via Natural or Artificial Opening Endoscopic (ICD-10-PCS; principal; 2022-05-11 13:07)
PROC: 07DR3ZZ Extraction of Iliac Bone Marrow, Percutaneous Approach (ICD-10-PCS; 2022-05-13)
DX: N13.9 Obstructive and reflux uropathy, unspecified (principal); N17.9 Acute kidney failure, unspecified; C82.90 Follicular lymphoma, unspecified, unspecified site; N13.1 Hydronephrosis with ureteral stricture, not elsewhere classified; D72.829 Elevated white blood cell count, unspecified; I10 Essential (primary) hypertension; Z79.899 Other long term (current) drug therapy; Z88.0 Allergy status to penicillin; Z20.822 Contact with and (suspected) exposure to COVID-19

== ENCOUNTER → 2022-06-11 | Outpatient (CLI) | payer MEDICARE ==
[~2022-06-11] MED LIST changes: +ACET500T15 PO; +ALLO10TA PO; +EX-L15TA PO; +FURO20TA2 PO; +HYDR-4571; +IBUP-1764 PO; +LEVO1TAB39 PO; +LIDO2SOL17 PO; +MAGICMW SSP; +MAGN400T2 PO; +MECL-86 PO; +MIRA3350 PO; +MM S100C PO; +OMEP40CA4 PO; +OXYB5TAB10 PO; +PRED5TA PO; +TRAM50TA2 PO
== END ==
LOC: M RAD 13:10
PROVIDERS: ATTEND Family Medicine
DX: N19 Unspecified kidney failure (principal); Z96.0 Presence of urogenital implants

== ENCOUNTER 2022-06-26 10:50 | Inpatient (IN) | payer MEDICARE ==
[~2022-06-26] VITALS: Ht 180.3 cm; Wt 79.0 kg
[~2022-06-26 10:50] MED LIST changes: +ACYC1CAP20 PO
[2022-06-26] MEDS ORDERED: SODIUM CHLORIDE 0.9% INJ 10 ML SYR IV PRN (11:45)
[2022-06-26 12:35] LABS: BASO # 0.1 10^3/uL (0.0-0.2); BASO % 0.9 % (0.0-1.0); EOS # 0.2 10^3/uL (0.0-0.5); EOS % 1.2 % (0.0-3.0); HEMATOCRIT 30.9 % (42.0-52.0); HEMOGLOBIN 9.7 g/dl (13.5-17.5); LYMPH # 0.4 10^3/uL (1.5-5.0); LYMPH % 2.4 % (24.0-44.0); MEAN CORPUSCULAR HEMOGLOBIN 31.1 pg (27.0-33.0); MEAN CORPUSCULAR HGB CONC 31.4 g/dl (32.0-36.5); MONO # 1.2 10^3/uL (0.0-0.8); MONO % 7.6 % (2.0-8.0); NEUTROPHILS # 13.7 10^3/uL (1.5-8.5); NEUTROPHILS % 86.3 % (36.0-66.0); PLATELET COUNT, AUTOMATED 424 10^3/uL (150-450); RED BLOOD COUNT 3.12 10^6/uL (4.30-6.10); WHITE BLOOD COUNT 15.8 10^3/uL (4.0-10.0)
[2022-06-26 12:48] LABS: INR 0.89; PROTHROMBIN TIME 12.2 SECONDS (12.5-14.5)
[2022-06-26 12:49] LABS: PARTIAL THROMBOPLASTIN TIME 23.2 SECONDS (24.8-34.2)
[2022-06-26 12:53] LABS: URIC ACID 7.3 MG/DL (3.7-9.2)
[2022-06-26 12:55] LABS: MAGNESIUM LEVEL 2.6 MG/DL (1.8-2.4)
[2022-06-26 12:56] LABS: BILIRUBIN,DIRECT 0.2 MG/DL (<0.4)
[2022-06-26 13:05] LABS: ALBUMIN 3.1 G/DL (3.2-5.2); BILIRUBIN,TOTAL 0.4 MG/DL (0.3-1.2); CREATININE FOR GFR 3.38 MG/DL (0.70-1.30); GLOMERULAR FILTRATION RATE 19.4 (>49); TOTAL PROTEIN 5.8 G/DL (5.7-8.2)
[2022-06-26 13:13] LABS: RSV AMPLIFICATION NEGATIVE (NEGATIVE)
[2022-06-26 13:40] LABS: CALCIUM LEVEL 16.4 MG/DL (8.3-10.6)
[2022-06-26] MEDS: NS 1,000 ML IV SCH ×2 (14:30→22:00)
[2022-06-26] MEDS ORDERED: FURO20TA2 PO (14:58)
[2022-06-26] MEDS ORDERED: LIDO2SOL17 PO (14:58)
[2022-06-26] MEDS ORDERED: DIPH-435 PO (14:58)
[2022-06-26] MEDS ORDERED: ACYC200C8 PO (14:58)
[2022-06-26] MEDS ORDERED: NS 1,000 ML IV ONE ×2 (15:00→16:00)
[2022-06-26] MEDS ORDERED: HOME MED LIST COMPLETE! XX SCH (15:05)
[2022-06-26 15:27] LABS: TOTAL PROTEIN,RANDOM URINE 85.5 MG/DL (0.0-14.0)
[2022-06-26 15:57] LABS: URIC ACID 7.5 MG/DL (3.7-9.2)
[2022-06-26 16:00] LABS: PHOSPHORUS LEVEL 4.6 MG/DL (2.4-5.1)
[2022-06-26] MEDS ORDERED: ZOLEDRONIC ACID 4 MG in IV 1 EA IV ONE (16:00)
[2022-06-26 16:10] LABS: CREATININE FOR GFR 3.35 MG/DL (0.70-1.30); GLOMERULAR FILTRATION RATE 19.6 (>49); POTASSIUM SERUM 3.8 MMOL/L (3.5-5.1)
[2022-06-26] MEDS ORDERED: HEPARIN SOD (PORCINE) 5000UNITS/ML 1ML VIAL/SYRINGE IV PRN (16:50)
[2022-06-26 17:18] LABS: HEMATOCRIT 30.4 % (42.0-52.0); HEMOGLOBIN 9.7 g/dl (13.5-17.5); MEAN CORPUSCULAR HEMOGLOBIN 31.1 pg (27.0-33.0); MEAN CORPUSCULAR HGB CONC 31.9 g/dl (32.0-36.5); MEAN CORPUSCULAR VOLUME 97.4 fl (80.0-96.0); PLATELET COUNT, AUTOMATED 426 10^3/uL (150-450); RED BLOOD COUNT 3.12 10^6/uL (4.30-6.10); WHITE BLOOD COUNT 14.9 10^3/uL (4.0-10.0)
[2022-06-26 17:42] LABS: CALCIUM LEVEL 15.4 MG/DL (8.3-10.6)
[2022-06-26] MEDS: CALCITONIN SALMON (MIACALCIN) 400INTERNATIONAL UNITS/2ML VIAL SQ SCH (21:00)
[2022-06-26] MEDS: HEPARIN DRIP 25,000 UNITS in IV 1 EA IV SCH (22:11)
[2022-06-26 22:54] LABS: URIC ACID 7.1 MG/DL (3.7-9.2)
[2022-06-26 22:55] LABS: MAGNESIUM LEVEL 2.4 MG/DL (1.8-2.4)
[2022-06-27] VITALS (13 sets, daily range): BP systolic 134–168; BP diastolic 69–88
[2022-06-27] MEDS: HEPARIN DRIP 25,000 UNITS in IV 1 EA IV SCH (01:16)
[2022-06-27] MEDS: NS 1,000 ML IV SCH ×4 (03:04→22:30)
[2022-06-27 04:21] LABS: BASO # 0.2 10^3/uL (0.0-0.2); BASO % 1.2 % (0.0-1.0); EOS # 0.6 10^3/uL (0.0-0.5); HEMATOCRIT 29.2 % (42.0-52.0); HEMOGLOBIN 9.2 g/dl (13.5-17.5); LYMPH # 0.5 10^3/uL (1.5-5.0); LYMPH % 3.4 % (24.0-44.0); MEAN CORPUSCULAR HEMOGLOBIN 30.7 pg (27.0-33.0); MEAN CORPUSCULAR HGB CONC 31.5 g/dl (32.0-36.5); MEAN CORPUSCULAR VOLUME 97.3 fl (80.0-96.0); MONO % 6.8 % (2.0-8.0); NEUTROPHILS # 12.1 10^3/uL (1.5-8.5); NEUTROPHILS % 83.3 % (36.0-66.0); PLATELET COUNT, AUTOMATED 392 10^3/uL (150-450); WHITE BLOOD COUNT 14.5 10^3/uL (4.0-10.0)
[2022-06-27 04:38] LABS: URIC ACID 7.3 MG/DL (3.7-9.2)
[2022-06-27 04:40] LABS: MAGNESIUM LEVEL 2.3 MG/DL (1.8-2.4)
[2022-06-27 04:42] LABS: PHOSPHORUS LEVEL 3.9 MG/DL (2.4-5.1)
[2022-06-27] MEDS ORDERED: LIDOCAINE VISCOUS 2% SOLN 15ML UDC PO PRN (08:40)
[2022-06-27] MEDS ORDERED: MECLIZINE 25 MG TABLET PO PRN (08:40)
[2022-06-27] MEDS ORDERED: MAGIC MOUTHWASH SUSPENSION BTL SSP PRN (08:40)
[2022-06-27] MEDS: allopurinoL 100 MG TAB PO SCH ×2 (09:00→20:59)
[2022-06-27] MEDS ORDERED: SODIUM CHLORIDE 0.9% INJ 10 ML SYR IV SCH (09:00)
[2022-06-27 11:02] LABS: BASO # 0.2 10^3/uL (0.0-0.2); BASO % 1.1 % (0.0-1.0); EOS # 0.5 10^3/uL (0.0-0.5); EOS % 3.6 % (0.0-3.0); HEMATOCRIT 27.1 % (42.0-52.0); HEMOGLOBIN 8.6 g/dl (13.5-17.5); LYMPH # 0.3 10^3/uL (1.5-5.0); LYMPH % 2.4 % (24.0-44.0); MEAN CORPUSCULAR HGB CONC 31.7 g/dl (32.0-36.5); MEAN CORPUSCULAR VOLUME 97.8 fl (80.0-96.0); MONO % 6.9 % (2.0-8.0); NEUTROPHILS # 11.8 10^3/uL (1.5-8.5); NEUTROPHILS % 84.9 % (36.0-66.0); PLATELET COUNT, AUTOMATED 348 10^3/uL (150-450); RED BLOOD COUNT 2.77 10^6/uL (4.30-6.10); WHITE BLOOD COUNT 13.9 10^3/uL (4.0-10.0)
[2022-06-27] MEDS: CALCITONIN SALMON (MIACALCIN) 400INTERNATIONAL UNITS/2ML VIAL SQ SCH ×2 (11:03→22:29)
[2022-06-27 11:27] LABS: URIC ACID 7.3 MG/DL (3.7-9.2)
[2022-06-27 11:28] LABS: MAGNESIUM LEVEL 2.1 MG/DL (1.8-2.4)
[2022-06-27 11:30] LABS: PHOSPHORUS LEVEL 3.6 MG/DL (2.4-5.1)
[2022-06-27 11:32] LABS: ALBUMIN 2.6 G/DL (3.2-5.2); BILIRUBIN,TOTAL 0.5 MG/DL (0.3-1.2); CALCIUM LEVEL 12.5 MG/DL (8.3-10.6); CREATININE FOR GFR 3.37 MG/DL (0.70-1.30); GLOMERULAR FILTRATION RATE 19.5 (>49); POTASSIUM SERUM 3.8 MMOL/L (3.5-5.1); TOTAL PROTEIN 4.9 G/DL (5.7-8.2)
[2022-06-27] MEDS ORDERED: diphenhydrAMINE 50MG/ML VIAL As Ordered ONE (12:01)
[2022-06-27] MEDS ORDERED: MIDAZOLAM INJ 2MG/2ML VIAL As Ordered ONE (12:02)
[2022-06-27] MEDS ORDERED: LIDOCAINE 1% MDV 20ML VIAL As Ordered ONE (12:02)
[2022-06-27] MEDS ORDERED: fentaNYL 100 MCG/2 ML INJECTION As Ordered ONE (12:02)
[2022-06-27] MEDS ORDERED: ISOVUE-300 61% 100ML VIAL As Ordered ONE (12:02)
[2022-06-27] MEDS ORDERED: CLINDAMYCIN 600 MG in IV 1 EA IV ONE (12:40)
[2022-06-27] MEDS ORDERED: CLINDAMYCIN 600MG/50ML PREMIX BAG As Ordered ONE (12:43)
[2022-06-27] MEDS ORDERED: POLYSPORIN TOPICAL OINTMENT 15GM TOP ONE (13:20)
[2022-06-27] MEDS ORDERED: SODIUM CHLORIDE 0.9% INJ 10 ML SYR IV PRN (13:20)
[2022-06-27] MEDS ORDERED: NEOSPORIN OINT 0.9 GM PKT TOP ONE (14:15)
[2022-06-27] MEDS: MIRALAX *UNIT DOSE* 17GM PACKET PO SCH (15:07)
[2022-06-27] MEDS: LORATADINE 10 MG TAB PO SCH (15:08)
[2022-06-27] MEDS: MULTIVITAMINS/MINERALS THERAP 1 TAB PO SCH (15:09)
[2022-06-27] MEDS: ACYCLOVIR 200 MG CAPSULE PO SCH ×3 (15:09→20:59)
[2022-06-27] MEDS ORDERED: ONDANSETRON 4MG 2ML VIAL IV PRN (15:35)
[2022-06-27] MEDS ORDERED: PERCOCET 5MG/325MG TAB PO PRN (15:35)
[2022-06-27 17:42] LABS: URIC ACID 7.4 MG/DL (3.7-9.2)
[2022-06-27 17:44] LABS: MAGNESIUM LEVEL 2.1 MG/DL (1.8-2.4)
[2022-06-27 17:45] LABS: PHOSPHORUS LEVEL 3.8 MG/DL (2.4-5.1)
[2022-06-27] MEDS: diphenhydrAMINE 50MG CAP PO SCH (20:59)
[2022-06-27 21:22] LABS: HEMATOCRIT 27.5 % (42.0-52.0); HEMOGLOBIN 8.7 g/dl (13.5-17.5)
[2022-06-27 21:48] LABS: URIC ACID 7.3 MG/DL (3.7-9.2)
[2022-06-28 00:19] VITALS: BP 161/74
[2022-06-28 04:09] LABS: BASO # 0.2 10^3/uL (0.0-0.2); BASO % 1.2 % (0.0-1.0); EOS # 0.4 10^3/uL (0.0-0.5); EOS % 2.9 % (0.0-3.0); HEMATOCRIT 25.5 % (42.0-52.0); HEMOGLOBIN 8.2 g/dl (13.5-17.5); LYMPH # 0.3 10^3/uL (1.5-5.0); LYMPH % 1.9 % (24.0-44.0); MEAN CORPUSCULAR HEMOGLOBIN 31.7 pg (27.0-33.0); MEAN CORPUSCULAR HGB CONC 32.2 g/dl (32.0-36.5); MEAN CORPUSCULAR VOLUME 98.5 fl (80.0-96.0); MONO # 0.8 10^3/uL (0.0-0.8); MONO % 6.5 % (2.0-8.0); NEUTROPHILS # 11.2 10^3/uL (1.5-8.5); NEUTROPHILS % 86.5 % (36.0-66.0); PLATELET COUNT, AUTOMATED 289 10^3/uL (150-450); RED BLOOD COUNT 2.59 10^6/uL (4.30-6.10)
[2022-06-28 04:24] VITALS: BP 129/68
[2022-06-28 04:30] LABS: URIC ACID 7.1 MG/DL (3.7-9.2)
[2022-06-28 04:31] LABS: MAGNESIUM LEVEL 1.9 MG/DL (1.8-2.4)
[2022-06-28 04:33] LABS: PHOSPHORUS LEVEL 3.5 MG/DL (2.4-5.1)
[2022-06-28] MEDS: NS 1,000 ML IV SCH ×3 (05:02→18:10)
[2022-06-28 08:00] VITALS: BP 140/71
[2022-06-28 08:21] LABS: URIC ACID 7.2 MG/DL (3.7-9.2)
[2022-06-28 08:23] LABS: CALCIUM LEVEL 11.7 MG/DL (8.3-10.6); CREATININE FOR GFR 3.39 MG/DL (0.70-1.30); GLOMERULAR FILTRATION RATE 19.3 (>49); PHOSPHORUS LEVEL 3.5 MG/DL (2.4-5.1); POTASSIUM SERUM 3.9 MMOL/L (3.5-5.1)
[2022-06-28 08:28] LABS: INR 0.96; PARTIAL THROMBOPLASTIN TIME 24.7 SECONDS (24.8-34.2)
[2022-06-28] MEDS ORDERED: ENOXAPARIN 80MG/0.8ML SYRINGE (J1650 PER 10MG) SC ONE (09:00)
[2022-06-28] MEDS ORDERED: SODIUM CHLORIDE 0.9% INJ 10 ML SYR IV SCH (09:00)
[2022-06-28] MEDS: MIRALAX *UNIT DOSE* 17GM PACKET PO SCH (09:25)
[2022-06-28] MEDS: MULTIVITAMINS/MINERALS THERAP 1 TAB PO SCH (09:26)
[2022-06-28] MEDS: ACYCLOVIR 200 MG CAPSULE PO SCH ×3 (09:26→20:43)
[2022-06-28] MEDS: allopurinoL 100 MG TAB PO SCH ×2 (09:26→20:43)
[2022-06-28] MEDS: LORATADINE 10 MG TAB PO SCH (09:26)
[2022-06-28] MEDS: CALCITONIN SALMON (MIACALCIN) 400INTERNATIONAL UNITS/2ML VIAL SQ SCH ×2 (10:57→20:44)
[2022-06-28 11:47] VITALS: BP 146/70
[2022-06-28 16:51] LABS: URIC ACID 6.8 MG/DL (3.7-9.2)
[2022-06-28 16:52] LABS: MAGNESIUM LEVEL 1.9 MG/DL (1.8-2.4)
[2022-06-28 16:53] VITALS: BP 161/81
[2022-06-28 16:54] LABS: PHOSPHORUS LEVEL 3.3 MG/DL (2.4-5.1)
[2022-06-28 20:13] VITALS: BP 144/65
[2022-06-28] MEDS: diphenhydrAMINE 50MG CAP PO SCH (20:43)
[2022-06-28 22:36] LABS: URIC ACID 6.8 MG/DL (3.7-9.2)
[2022-06-28 22:38] LABS: MAGNESIUM LEVEL 1.8 MG/DL (1.8-2.4)
[2022-06-28 22:39] LABS: PHOSPHORUS LEVEL 3.2 MG/DL (2.4-5.1)
[2022-06-29 00:31] VITALS: BP 133/62
[2022-06-29] MEDS: NS 1,000 ML IV SCH ×4 (00:58→20:54)
[2022-06-29 04:11] LABS: BASO # 0.1 10^3/uL (0.0-0.2); BASO % 0.9 % (0.0-1.0); EOS # 0.4 10^3/uL (0.0-0.5); EOS % 3.5 % (0.0-3.0); HEMATOCRIT 24.4 % (42.0-52.0); HEMOGLOBIN 7.7 g/dl (13.5-17.5); LYMPH # 0.3 10^3/uL (1.5-5.0); MEAN CORPUSCULAR HGB CONC 31.6 g/dl (32.0-36.5); MEAN CORPUSCULAR VOLUME 98.4 fl (80.0-96.0); MONO # 0.8 10^3/uL (0.0-0.8); MONO % 6.9 % (2.0-8.0); NEUTROPHILS # 9.6 10^3/uL (1.5-8.5); NEUTROPHILS % 84.9 % (36.0-66.0); PLATELET COUNT, AUTOMATED 286 10^3/uL (150-450); RED BLOOD COUNT 2.48 10^6/uL (4.30-6.10); WHITE BLOOD COUNT 11.4 10^3/uL (4.0-10.0)
[2022-06-29 04:32] VITALS: BP 145/62
[2022-06-29 08:00] VITALS: BP 146/67
[2022-06-29] MEDS: CALCITONIN SALMON (MIACALCIN) 400INTERNATIONAL UNITS/2ML VIAL SQ SCH ×2 (08:04→20:54)
[2022-06-29] MEDS: MIRALAX *UNIT DOSE* 17GM PACKET PO SCH (08:04)
[2022-06-29] MEDS: ACYCLOVIR 200 MG CAPSULE PO SCH ×3 (08:05→20:53)
[2022-06-29] MEDS: MULTIVITAMINS/MINERALS THERAP 1 TAB PO SCH (08:05)
[2022-06-29] MEDS: allopurinoL 100 MG TAB PO SCH ×2 (08:05→20:57)
[2022-06-29] MEDS: LORATADINE 10 MG TAB PO SCH (08:05)
[2022-06-29 09:54] LABS: HEMATOCRIT 26.3 % (42.0-52.0); HEMOGLOBIN 8.3 g/dl (13.5-17.5); MEAN CORPUSCULAR HGB CONC 31.6 g/dl (32.0-36.5); MEAN CORPUSCULAR VOLUME 98.1 fl (80.0-96.0); PLATELET COUNT, AUTOMATED 290 10^3/uL (150-450); RED BLOOD COUNT 2.68 10^6/uL (4.30-6.10); WHITE BLOOD COUNT 12.4 10^3/uL (4.0-10.0)
[2022-06-29 10:18] LABS: URIC ACID 6.3 MG/DL (3.7-9.2)
[2022-06-29 10:19] LABS: MAGNESIUM LEVEL 1.7 MG/DL (1.8-2.4)
[2022-06-29 10:21] LABS: CALCIUM LEVEL 10.1 MG/DL (8.3-10.6); CREATININE FOR GFR 2.85 MG/DL (0.70-1.30); GLOMERULAR FILTRATION RATE 23.6 (>49); PHOSPHORUS LEVEL 2.7 MG/DL (2.4-5.1); POTASSIUM SERUM 3.3 MMOL/L (3.5-5.1)
[2022-06-29] MEDS ORDERED: MAG SULF 1GM/100ML (MAG RUN) 1 GM in IV 1 EA IV ONE ×2 (10:50→14:15)
[2022-06-29 11:55] VITALS: BP 152/75
[2022-06-29] MEDS: POTASSIUM CHLORIDE 10MEQ SR TABLET PO SCH ×2 (12:16→20:53)
[2022-06-29] MEDS: MAGNESIUM OXIDE 400MG TAB (MAG-OX) PO SCH (12:17)
[2022-06-29] MEDS ORDERED: POTASSIUM CHLORIDE 10MEQ SR TABLET PO ONE (14:15)
[2022-06-29] MEDS ORDERED: LOVE0.6I2 SC (14:23)
[2022-06-29] MEDS ORDERED: ALCOPAD25 TOP (14:24)
[2022-06-29] MEDS ORDERED: 3ML25MIS SC (14:24)
[2022-06-29] MEDS ORDERED: BD SMIS8 XX (14:25)
[2022-06-29] MEDS: ENOXAPARIN 80MG/0.8ML SYRINGE (J1650 PER 10MG) SC SCH (15:39)
[2022-06-29 20:00] VITALS: BP 133/69
[2022-06-29] MEDS: diphenhydrAMINE 50MG CAP PO SCH (20:53)
[2022-06-30] MEDS: NS 1,000 ML IV SCH (03:24)
[2022-06-30 04:00] VITALS: BP 139/65
[2022-06-30 05:29] LABS: BASO # 0.1 10^3/uL (0.0-0.2); BASO % 0.8 % (0.0-1.0); EOS # 0.4 10^3/uL (0.0-0.5); EOS % 3.1 % (0.0-3.0); HEMATOCRIT 26.5 % (42.0-52.0); LYMPH # 0.3 10^3/uL (1.5-5.0); LYMPH % 2.9 % (24.0-44.0); MEAN CORPUSCULAR HEMOGLOBIN 30.3 pg (27.0-33.0); MEAN CORPUSCULAR HGB CONC 30.2 g/dl (32.0-36.5); MEAN CORPUSCULAR VOLUME 100.4 fl (80.0-96.0); MONO # 0.8 10^3/uL (0.0-0.8); MONO % 7.3 % (2.0-8.0); NEUTROPHILS # 9.5 10^3/uL (1.5-8.5); NEUTROPHILS % 85.1 % (36.0-66.0); PLATELET COUNT, AUTOMATED 282 10^3/uL (150-450); RED BLOOD COUNT 2.64 10^6/uL (4.30-6.10); WHITE BLOOD COUNT 11.2 10^3/uL (4.0-10.0)
[2022-06-30 05:53] LABS: CALCIUM LEVEL 9.8 MG/DL (8.3-10.6); CREATININE FOR GFR 2.69 MG/DL (0.70-1.30); GLOMERULAR FILTRATION RATE 25.3 (>49); POTASSIUM SERUM 3.7 MMOL/L (3.5-5.1)
[2022-06-30] MEDS ORDERED: SUCRALFATE 1 GM TAB PO SCH (07:30)
[2022-06-30 07:51] VITALS: BP 136/71
[2022-06-30] MEDS ORDERED: PROT1TAB2 PO (07:54)
[2022-06-30] MEDS ORDERED: CARA1TAB6 PO (07:54)
[2022-06-30] MEDS ORDERED: SUCR1SS PO (08:10)
[2022-06-30] MEDS: ACYCLOVIR 200 MG CAPSULE PO SCH (08:31)
[2022-06-30] MEDS: METOCLOPRAMIDE INJ 10MG/2ML VIAL IV SCH ×2 (08:31→13:00)
[2022-06-30] MEDS: POTASSIUM CHLORIDE 10MEQ SR TABLET PO SCH (08:31)
[2022-06-30] MEDS: MIRALAX *UNIT DOSE* 17GM PACKET PO SCH (08:31)
[2022-06-30] MEDS: MULTIVITAMINS/MINERALS THERAP 1 TAB PO SCH (08:31)
[2022-06-30] MEDS: allopurinoL 100 MG TAB PO SCH (08:32)
[2022-06-30] MEDS: LORATADINE 10 MG TAB PO SCH (08:32)
[2022-06-30] MEDS: MAGNESIUM OXIDE 400MG TAB (MAG-OX) PO SCH (08:33)
[2022-06-30] MEDS ORDERED: PANTOPRAZOLE 40MG TAB (PROTONIX) PO SCH (09:00)
[2022-06-30] MEDS: CALCITONIN SALMON (MIACALCIN) 400INTERNATIONAL UNITS/2ML VIAL SQ SCH (10:49)
[2022-06-30] MEDS: ENOXAPARIN 80MG/0.8ML SYRINGE (J1650 PER 10MG) SC SCH (12:58)
[2022-07-01] MEDS ORDERED: ALLO10TA PO (10:16)
== END 2022-06-30 13:45 | disposition home health service (06) | DRG 841 ==
LOC: M ED 10:50 → M ED INP 14:26 → ENRESERV 19:34 → M PCU 20:15
PROVIDERS: ADMIT General Practice; ATTEND General Practice
PROC: 0T9030Z Drainage of Right Kidney with Drainage Device, Percutaneous Approach (ICD-10-PCS; 2022-06-27)
PROC: 0T9130Z Drainage of Left Kidney with Drainage Device, Percutaneous Approach (ICD-10-PCS; principal; 2022-06-27 13:00)
DX: C82.90 Follicular lymphoma, unspecified, unspecified site (principal); D62 Acute posthemorrhagic anemia; N13.0 Hydronephrosis with ureteropelvic junction obstruction; I82.403 Acute embolism and thrombosis of unspecified deep veins of lower extremity, bilateral; N17.9 Acute kidney failure, unspecified; N13.9 Obstructive and reflux uropathy, unspecified; E83.52 Hypercalcemia; N18.9 Chronic kidney disease, unspecified; I12.9 Hypertensive chronic kidney disease with stage 1 through stage 4 chronic kidney disease, or unspecified chronic kidney disease; E87.70 Fluid overload, unspecified; Z92.21 Personal history of antineoplastic chemotherapy; Z92.25 Personal history of immunosuppression therapy; Z79.899 Other long term (current) drug therapy; Z88.0 Allergy status to penicillin; Z88.8 Allergy status to other drugs, medicaments and biological substances; Z95.2 Presence of prosthetic heart valve; Z96.642 Presence of left artificial hip joint; R31.0 Gross hematuria

== ENCOUNTER → 2022-07-09 | Outpatient (CLI) | payer MEDICARE ==
[~2022-07-09] MED LIST changes: +3ML25MIS SC; +ACYC200C8 PO; +ALCOPAD25 TOP; +BD SMIS8 XX; +CARA1TAB6 PO; +DIPH-435 PO; +LIDO15SO4 PO; -LIDO2SOL17 PO; +LOVE0.6I2 SC; +PROT1TAB2 PO; +SUCR1SS PO
== END ==
LOC: M ONCR 08:36
PROVIDERS: ATTEND General Practice
DX: C82.13 Follicular lymphoma grade II, intra-abdominal lymph nodes (principal); Z79.620 Long term (current) use of immunosuppressive biologic; Z82.3 Family history of stroke; Z82.41 Family history of sudden cardiac death; Z82.5 Family history of asthma and other chronic lower respiratory diseases; Z87.891 Personal history of nicotine dependence; Z88.0 Allergy status to penicillin; Z88.1 Allergy status to other antibiotic agents; Z93.6 Other artificial openings of urinary tract status; Z96.642 Presence of left artificial hip joint

== ENCOUNTER → 2022-07-11 | Outpatient (CLI) | payer BC, MEDICARE ==
[2022-07-11 16:30] LABS: BASO # 0.2 10^3/uL (0.0-0.2); BASO % 1.5 % (0.0-1.0); EOS # 1.2 10^3/uL (0.0-0.5); EOS % 7.6 % (0.0-3.0); HEMATOCRIT 30.2 % (42.0-52.0); HEMOGLOBIN 9.4 g/dl (13.5-17.5); LYMPH # 0.7 10^3/uL (1.5-5.0); LYMPH % 4.3 % (24.0-44.0); MEAN CORPUSCULAR HEMOGLOBIN 31.5 pg (27.0-33.0); MEAN CORPUSCULAR HGB CONC 31.1 g/dl (32.0-36.5); MEAN CORPUSCULAR VOLUME 101.3 fl (80.0-96.0); MONO # 0.9 10^3/uL (0.0-0.8); MONO % 6.1 % (2.0-8.0); NEUTROPHILS # 11.9 10^3/uL (1.5-8.5); NEUTROPHILS % 77.3 % (36.0-66.0); PLATELET COUNT, AUTOMATED 494 10^3/uL (150-450); RED BLOOD COUNT 2.98 10^6/uL (4.30-6.10); WHITE BLOOD COUNT 15.4 10^3/uL (4.0-10.0)
[2022-07-11 17:18] LABS: BILIRUBIN,TOTAL 0.3 MG/DL (0.3-1.2); CALCIUM LEVEL 11.5 MG/DL (8.3-10.6); CREATININE FOR GFR 2.34 MG/DL (0.70-1.30); GLOMERULAR FILTRATION RATE 29.6 (>49); TOTAL PROTEIN 6.1 G/DL (5.7-8.2)
== END ==
LOC: M LAB 16:05
PROVIDERS: ATTEND Family Medicine
DX: R05.9 Cough, unspecified (principal); N13.8 Other obstructive and reflux uropathy

== ENCOUNTER → 2022-07-11 | Outpatient (REF) | payer BC, MEDICARE | LOC: M SFHCADAM 15:04 | PROVIDERS: ATTEND Family Medicine | DX: Z53.9 Procedure and treatment not carried out, unspecified reason (principal) ==

== ENCOUNTER → 2022-07-11 | Outpatient (CLI) | payer BC, MEDICARE ==
[~2022-07-11] MED LIST changes: +BENZ-18 PO; +CEFD300C PO; +DOXY-443 PO; +ELIQ5TAB PO; +LIDO15SO PO; -LIDO15SO4 PO; +ONDA-84 PO; +PROC10TA5 PO
== END ==
LOC: M ADAMS 15:28
PROVIDERS: ATTEND Family Medicine
DX: R05.9 Cough, unspecified (principal)

== ENCOUNTER → 2022-07-15 | Outpatient (POV) | payer MEDICARE ==
[~2022-07-15] VITALS: Ht 165.1 cm; Wt 72.7 kg
[~2022-07-15] MED LIST changes: -BENZ-18 PO; -CEFD300C PO; -DOXY-443 PO; -ELIQ5TAB PO; -LIDO15SO PO; +LIDO15SO4 PO; -ONDA-84 PO; -PROC10TA5 PO
[2022-07-15 09:00] VITALS: BP 154/83
== END ==
LOC: M IRPOV 08:39
PROVIDERS: ATTEND Radiology Diagnostic Radiology
DX: N13.9 Obstructive and reflux uropathy, unspecified (principal); N19 Unspecified kidney failure; Z96.0 Presence of urogenital implants; Z88.0 Allergy status to penicillin; Z88.1 Allergy status to other antibiotic agents

== ENCOUNTER → 2022-07-17 | Outpatient (CLI) | payer MEDICARE | LOC: M CARPUL 10:18 | PROVIDERS: ATTEND Specialist | DX: R22.43 Localized swelling, mass and lump, lower limb, bilateral (principal); Z98.890 Other specified postprocedural states ==

== ENCOUNTER → 2022-07-25 | Outpatient (CLI) | payer MEDICARE ==
[~2022-07-25] MED LIST changes: +ELIQ5TAB PO
== END ==
LOC: M RAD 11:04
PROVIDERS: ATTEND Nurse Practitioner
DX: C82.90 Follicular lymphoma, unspecified, unspecified site (principal); Z93.6 Other artificial openings of urinary tract status; J47.9 Bronchiectasis, uncomplicated; J98.11 Atelectasis; J90 Pleural effusion, not elsewhere classified; R14.0 Abdominal distension (gaseous); K57.30 Diverticulosis of large intestine without perforation or abscess without bleeding; I70.0 Atherosclerosis of aorta; Z96.642 Presence of left artificial hip joint

== ENCOUNTER 2022-07-30 10:41 | Inpatient (IN) | payer MEDICARE ==
[~2022-07-30] VITALS: Ht 165.1 cm; Wt 73.8 kg
[~2022-07-30 10:41] MED LIST changes: +BENZ-18 PO
[2022-07-30 11:30] LABS: BASO # 0.1 10^3/uL (0.0-0.2); BASO % 0.3 % (0.0-1.0); EOS # 0.1 10^3/uL (0.0-0.5); EOS % 0.7 % (0.0-3.0); HEMATOCRIT 31.3 % (42.0-52.0); LYMPH # 0.6 10^3/uL (1.5-5.0); LYMPH % 3.8 % (24.0-44.0); MEAN CORPUSCULAR HEMOGLOBIN 31.9 pg (27.0-33.0); MEAN CORPUSCULAR HGB CONC 31.9 g/dl (32.0-36.5); MONO # 1.3 10^3/uL (0.0-0.8); MONO % 8.2 % (2.0-8.0); NEUTROPHILS # 13.4 10^3/uL (1.5-8.5); NEUTROPHILS % 85.3 % (36.0-66.0); PLATELET COUNT, AUTOMATED 445 10^3/uL (150-450); RED BLOOD COUNT 3.13 10^6/uL (4.30-6.10); WHITE BLOOD COUNT 15.7 10^3/uL (4.0-10.0)
[2022-07-30 12:05] LABS: CALCIUM LEVEL 12.5 MG/DL (8.3-10.6); CREATININE FOR GFR 1.53 MG/DL (0.70-1.30); GLOMERULAR FILTRATION RATE 48.3 (>49); POTASSIUM SERUM 3.7 MMOL/L (3.5-5.1)
[2022-07-30] MEDS ORDERED: HOME MED LIST COMPLETE! XX SCH (13:55)
[2022-07-30 15:20] LABS: RSV AMPLIFICATION NEGATIVE (NEGATIVE)
[2022-07-30 15:31] LABS: INR 1.23; PROTHROMBIN TIME 15.8 SECONDS (12.5-14.5)
[2022-07-30 15:32] LABS: PARTIAL THROMBOPLASTIN TIME 28.3 SECONDS (24.8-34.2)
[2022-07-30] MEDS ORDERED: CALCITONIN SALMON (MIACALCIN) 400INTERNATIONAL UNITS/2ML VIAL SQ ONE (16:00)
[2022-07-30 17:30] VITALS: BP 134/81
[2022-07-30] MEDS ORDERED: SODIUM CHLORIDE 0.9% INJ 10 ML SYR IV PRN (18:15)
[2022-07-30] MEDS: APIXABAN 5 MG TAB (ELIQUIS) PO SCH (20:31)
[2022-07-30] MEDS: allopurinoL 100 MG TAB PO SCH (20:31)
[2022-07-30] MEDS ORDERED: BENZONATATE 100MG CAPSULE PO PRN (20:35)
[2022-07-30 22:03] VITALS: BP 141/74
[2022-07-31] MEDS: NS 1,000 ML IV SCH ×2 (00:20→13:15)
[2022-07-31 05:24] VITALS: BP 125/62
[2022-07-31 06:32] LABS: BASO # 0.1 10^3/uL (0.0-0.2); BASO % 1.2 % (0.0-1.0); EOS # 0.8 10^3/uL (0.0-0.5); EOS % 6.6 % (0.0-3.0); HEMATOCRIT 29.1 % (42.0-52.0); HEMOGLOBIN 9.1 g/dl (13.5-17.5); LYMPH # 0.7 10^3/uL (1.5-5.0); LYMPH % 6.1 % (24.0-44.0); MEAN CORPUSCULAR HEMOGLOBIN 30.8 pg (27.0-33.0); MEAN CORPUSCULAR HGB CONC 31.3 g/dl (32.0-36.5); MEAN CORPUSCULAR VOLUME 98.6 fl (80.0-96.0); MONO # 0.9 10^3/uL (0.0-0.8); MONO % 8.2 % (2.0-8.0); NEUTROPHILS # 8.7 10^3/uL (1.5-8.5); NEUTROPHILS % 75.9 % (36.0-66.0); PLATELET COUNT, AUTOMATED 383 10^3/uL (150-450); RED BLOOD COUNT 2.95 10^6/uL (4.30-6.10); WHITE BLOOD COUNT 11.4 10^3/uL (4.0-10.0)
[2022-07-31 07:15] LABS: CREATININE FOR GFR 1.52 MG/DL (0.70-1.30); GLOMERULAR FILTRATION RATE 48.6 (>49)
[2022-07-31] MEDS: APIXABAN 5 MG TAB (ELIQUIS) PO SCH (08:02)
[2022-07-31] MEDS ORDERED: SODIUM CHLORIDE 0.9% INJ 10 ML SYR IV SCH (09:00)
[2022-07-31] MEDS ORDERED: MIRALAX *UNIT DOSE* 17GM PACKET PO SCH (09:00)
[2022-07-31] MEDS ORDERED: LORATADINE 10 MG TAB PO SCH (09:00)
[2022-07-31] MEDS: allopurinoL 100 MG TAB PO SCH (09:06)
[2022-07-31] MEDS ORDERED: LIDOCAINE 1% MDV 20ML VIAL As Ordered ONE (10:14)
[2022-07-31] MEDS ORDERED: ISOVUE-300 61% 100ML VIAL As Ordered ONE (10:14)
[2022-07-31 10:32] VITALS: BP 161/76
== END 2022-07-31 13:55 | disposition home or self-care (01) | DRG 699 ==
LOC: M ED 10:41 → M ED INP 13:46 → ENRESERV 16:34 → M MS5PR 17:20
PROVIDERS: ADMIT Internal Medicine Nephrology; ATTEND Internal Medicine Nephrology
PROC: 0T25X0Z Change Drainage Device in Kidney, External Approach (ICD-10-PCS; principal; 2022-07-31 10:30)
DX: T83.098A Other mechanical complication of other urinary catheter, initial encounter (principal); C82.10 Follicular lymphoma grade II, unspecified site; N13.8 Other obstructive and reflux uropathy; J90 Pleural effusion, not elsewhere classified; N18.9 Chronic kidney disease, unspecified; E83.52 Hypercalcemia; M19.012 Primary osteoarthritis, left shoulder; Z86.718 Personal history of other venous thrombosis and embolism; Z79.01 Long term (current) use of anticoagulants; Z79.899 Other long term (current) drug therapy; Z20.822 Contact with and (suspected) exposure to COVID-19; Z88.0 Allergy status to penicillin; Z88.1 Allergy status to other antibiotic agents; Z96.0 Presence of urogenital implants; Z96.642 Presence of left artificial hip joint

== ENCOUNTER → 2022-08-04 | Outpatient (CLI) | payer MEDICARE | LOC: M PLARAD 11:41 | PROVIDERS: ATTEND Nurse Practitioner | DX: C91.10 Chronic lymphocytic leukemia of B-cell type not having achieved remission (principal) | CPT/HCPCS: 78815; A9552 ==

== ENCOUNTER → 2022-08-05 | Outpatient (RCR) | payer MEDICARE ==
[~2022-08-05] MED LIST changes: +CEFD300C PO
== END ==
LOC: M ONCR 07-14 12:24
PROVIDERS: ATTEND General Practice
DX: C82.13 Follicular lymphoma grade II, intra-abdominal lymph nodes (principal)

== ENCOUNTER 2022-08-09 07:47 | Emergency (ER) | payer MEDICARE ==
[~2022-08-09] VITALS: Ht 165.1 cm; Wt 68.2 kg
[~2022-08-09 07:47] MED LIST changes: -CEFD300C PO
[2022-08-09 09:43] LABS: BASO # 0.1 10^3/uL (0.0-0.2); BASO % 0.7 % (0.0-1.0); EOS # 0.3 10^3/uL (0.0-0.5); EOS % 3.3 % (0.0-3.0); HEMATOCRIT 30.9 % (42.0-52.0); HEMOGLOBIN 9.7 g/dl (13.5-17.5); LYMPH # 0.3 10^3/uL (1.5-5.0); MEAN CORPUSCULAR HGB CONC 31.4 g/dl (32.0-36.5); MEAN CORPUSCULAR VOLUME 98.7 fl (80.0-96.0); MONO # 0.5 10^3/uL (0.0-0.8); MONO % 4.9 % (2.0-8.0); NEUTROPHILS # 8.2 10^3/uL (1.5-8.5); NEUTROPHILS % 86.9 % (36.0-66.0); PLATELET COUNT, AUTOMATED 331 10^3/uL (150-450); RED BLOOD COUNT 3.13 10^6/uL (4.30-6.10); WHITE BLOOD COUNT 9.5 10^3/uL (4.0-10.0)
[2022-08-09 10:16] LABS: ALBUMIN 3.1 G/DL (3.2-5.2); BILIRUBIN,TOTAL 0.4 MG/DL (0.3-1.2); CALCIUM LEVEL 10.2 MG/DL (8.3-10.6); CREATININE FOR GFR 1.51 MG/DL (0.70-1.30); POTASSIUM SERUM 4.3 MMOL/L (3.5-5.1); TOTAL PROTEIN 5.7 G/DL (5.7-8.2)
[2022-08-09 10:17] LABS: APPEARANCE, URINE CLOUDY (CLEAR); BACTERIA, URINE AUTO 1+ (NEGATIVE); BILIRUBIN, URINE AUTO NEGATIVE (NEGATIVE); BLOOD, URINE BLOOD 3+ (NEGATIVE); COLOR, URINE YELLOW (YELLOW); GLUCOSE, URINE (UA) AUTO NEGATIVE (NEGATIVE); KETONE, URINE AUTO NEGATIVE (NEGATIVE); LEUKOCYTE ESTERASE, URINE AUTO 2+ (NEGATIVE); MUCUS, URINE SMALL (NEGATIVE); NITRITE, URINE AUTO NEGATIVE (NEGATIVE); PROTEIN, URINE AUTO 2+ mg/dL (NEGATIVE); RBC, URINE AUTO TNTC /HPF (0-3); SPECIFIC GRAVITY URINE AUTO 1.011 (1.002-1.035); SQUAMOUS EPITHELIAL CELL UR AU 0 /HPF (0-6); UROBILINOGEN, URINE AUTO 0.2 mg/dL (0.0-2.0); WBC, URINE AUTO 127 /HPF (0-3)
[2022-08-09] MEDS ORDERED: CEFD300C PO (12:00)
[2022-08-09 12:05] VITALS: BP 130/65
== END 2022-08-09 12:10 | disposition home or self-care (01) ==
LOC: M ED 07:47
DX: T83.092A Other mechanical complication of nephrostomy catheter, initial encounter (principal); N18.30 Chronic kidney disease, stage 3 unspecified; Z87.891 Personal history of nicotine dependence; Z86.718 Personal history of other venous thrombosis and embolism; Z88.0 Allergy status to penicillin; Z88.1 Allergy status to other antibiotic agents; Z79.01 Long term (current) use of anticoagulants; Z79.810 Long term (current) use of selective estrogen receptor modulators (SERMs); Z79.2 Long term (current) use of antibiotics; Z79.899 Other long term (current) drug therapy

== ENCOUNTER 2022-08-11 11:12 | Emergency (ER) | payer MEDICARE ==
[~2022-08-11] VITALS: Ht 165.1 cm; Wt 68.2 kg
[~2022-08-11 11:12] MED LIST changes: +CEFD300C PO
[2022-08-11 14:01] LABS: BASO # 0.1 10^3/uL (0.0-0.2); BASO % 0.8 % (0.0-1.0); EOS # 0.7 10^3/uL (0.0-0.5); EOS % 9.9 % (0.0-3.0); HEMATOCRIT 29.6 % (42.0-52.0); HEMOGLOBIN 9.6 g/dl (13.5-17.5); LYMPH # 0.3 10^3/uL (1.5-5.0); LYMPH % 4.7 % (24.0-44.0); MEAN CORPUSCULAR HEMOGLOBIN 32.2 pg (27.0-33.0); MEAN CORPUSCULAR HGB CONC 32.4 g/dl (32.0-36.5); MEAN CORPUSCULAR VOLUME 99.3 fl (80.0-96.0); MONO # 0.5 10^3/uL (0.0-0.8); MONO % 7.1 % (2.0-8.0); NEUTROPHILS # 5.5 10^3/uL (1.5-8.5); NEUTROPHILS % 76.2 % (36.0-66.0); PLATELET COUNT, AUTOMATED 307 10^3/uL (150-450); RED BLOOD COUNT 2.98 10^6/uL (4.30-6.10); WHITE BLOOD COUNT 7.2 10^3/uL (4.0-10.0)
[2022-08-11 14:31] LABS: CREATININE FOR GFR 1.43 MG/DL (0.70-1.30); GLOMERULAR FILTRATION RATE 52.2 (>49); POTASSIUM SERUM 4.3 MMOL/L (3.5-5.1)
[2022-08-11] MEDS ORDERED: DOXY-443 PO (14:53)
[2022-08-11] MEDS ORDERED: DOXYCYCLINE HYCLATE 100MG TABLET PO ONE (15:10)
[2022-08-11 15:47] VITALS: BP 122/76
== END 2022-08-11 15:49 | disposition home or self-care (01) ==
LOC: M ED 11:12
DX: N39.0 Urinary tract infection, site not specified (principal); N18.9 Chronic kidney disease, unspecified; J90 Pleural effusion, not elsewhere classified; Z88.0 Allergy status to penicillin; Z88.1 Allergy status to other antibiotic agents; Z79.2 Long term (current) use of antibiotics; Z79.01 Long term (current) use of anticoagulants; Z79.810 Long term (current) use of selective estrogen receptor modulators (SERMs); Z79.899 Other long term (current) drug therapy

== ENCOUNTER → 2022-08-12 | Outpatient (POV) | payer MEDICARE ==
[~2022-08-12] VITALS: Ht 165.1 cm; Wt 68.2 kg
[~2022-08-12] MED LIST changes: +DOXY-443 PO
[2022-08-12 07:45] VITALS: BP 126/70
== END ==
LOC: M IRPOV 07:31
PROVIDERS: ATTEND Radiology Diagnostic Radiology
DX: T83.092A Other mechanical complication of nephrostomy catheter, initial encounter (principal); Z88.0 Allergy status to penicillin; Z88.1 Allergy status to other antibiotic agents

== ENCOUNTER → 2022-08-18 | Outpatient (CLI) | payer MEDICARE, BC | LOC: M ADAMS 15:40 | PROVIDERS: ATTEND Family Medicine | DX: R05.2 Subacute cough (principal) ==

== ENCOUNTER → 2022-08-18 | Outpatient (REF) | payer BC, MEDICARE ==
[2022-08-18 17:05] LABS: BASO # 0.1 10^3/uL (0.0-0.2); BASO % 0.7 % (0.0-1.0); EOS # 1.1 10^3/uL (0.0-0.5); EOS % 11.6 % (0.0-3.0); HEMATOCRIT 33.4 % (42.0-52.0); HEMOGLOBIN 10.5 g/dl (13.5-17.5); LYMPH # 0.3 10^3/uL (1.5-5.0); LYMPH % 3.2 % (24.0-44.0); MEAN CORPUSCULAR HEMOGLOBIN 31.4 pg (27.0-33.0); MEAN CORPUSCULAR HGB CONC 31.4 g/dl (32.0-36.5); MONO % 10.2 % (2.0-8.0); NEUTROPHILS # 7.1 10^3/uL (1.5-8.5); NEUTROPHILS % 73.2 % (36.0-66.0); PLATELET COUNT, AUTOMATED 318 10^3/uL (150-450); RED BLOOD COUNT 3.34 10^6/uL (4.30-6.10); WHITE BLOOD COUNT 9.7 10^3/uL (4.0-10.0)
[2022-08-18 17:37] LABS: ALBUMIN 3.4 G/DL (3.2-5.2); BILIRUBIN,TOTAL 0.5 MG/DL (0.3-1.2); CALCIUM LEVEL 9.9 MG/DL (8.3-10.6); CREATININE FOR GFR 1.43 MG/DL (0.70-1.30); GLOMERULAR FILTRATION RATE 52.2 (>49); POTASSIUM SERUM 4.2 MMOL/L (3.5-5.1); TOTAL PROTEIN 6.1 G/DL (5.7-8.2)
== END ==
LOC: M SFHCADAM 15:41
PROVIDERS: ATTEND Family Medicine
DX: N13.9 Obstructive and reflux uropathy, unspecified (principal); R05.2 Subacute cough

== ENCOUNTER 2022-08-19 09:30 | Outpatient (RCR) | payer MEDICARE ==
[2022-08-22] MEDS ORDERED: ALLO10TA PO (15:32)
[2022-08-22] MEDS ORDERED: ELIQ5TAB PO (15:32)
[2022-09-03] MEDS ORDERED: ONDA-84 PO (14:37)
[2022-09-03] MEDS ORDERED: PROC10TA5 PO (14:37)
== END 2022-09-05 ==
LOC: M ONCR 09:30
PROVIDERS: ATTEND General Practice
DX: C82.13 Follicular lymphoma grade II, intra-abdominal lymph nodes (principal)

== ENCOUNTER → 2022-08-19 | Outpatient (POV) | payer MEDICARE ==
[~2022-08-19] VITALS: Ht 165.1 cm; Wt 68.1 kg
[2022-08-19 14:15] VITALS: BP 130/70
== END ==
LOC: M IRPOV 14:08
PROVIDERS: ATTEND Radiology Diagnostic Radiology
DX: C85.90 Non-Hodgkin lymphoma, unspecified, unspecified site (principal); N13.30 Unspecified hydronephrosis; Z88.0 Allergy status to penicillin; Z88.1 Allergy status to other antibiotic agents; Z96.0 Presence of urogenital implants

== ENCOUNTER → 2022-09-19 | Outpatient (CLI) | payer MEDICARE ==
[~2022-09-19] MED LIST changes: +LIDO15SO PO; -LIDO15SO4 PO; +ONDA-84 PO; +PROC10TA5 PO
== END ==
LOC: M ONCR 08:33
PROVIDERS: ATTEND Radiology Radiation Oncology
DX: C82.13 Follicular lymphoma grade II, intra-abdominal lymph nodes (principal); Z79.01 Long term (current) use of anticoagulants; Z79.899 Other long term (current) drug therapy; Z87.891 Personal history of nicotine dependence; Z88.0 Allergy status to penicillin; Z88.1 Allergy status to other antibiotic agents; Z92.3 Personal history of irradiation

== ENCOUNTER → 2022-09-30 | Outpatient (POV) | payer MEDICARE ==
[~2022-09-30] VITALS: Ht 165.1 cm; Wt 68.1 kg
[2022-09-30 15:45] VITALS: BP 149/74
== END ==
LOC: M IRPOV 15:11
PROVIDERS: ATTEND Radiology Diagnostic Radiology
DX: N13.8 Other obstructive and reflux uropathy (principal); Z92.21 Personal history of antineoplastic chemotherapy; Z88.0 Allergy status to penicillin; Z88.1 Allergy status to other antibiotic agents

== ENCOUNTER → 2022-10-01 | Outpatient (CLI) | payer MEDICARE ==
[~2022-10-01] MED LIST changes: +ISOVUE-300 61% 100ML VIAL As Ordered ONE
[2022-10-01 13:38] VITALS: BP 160/73
== END ==
LOC: M IRPRO 11:16
PROVIDERS: ATTEND Radiology Diagnostic Radiology
DX: N13.8 Other obstructive and reflux uropathy (principal)

== ENCOUNTER → 2022-10-10 | Outpatient (CLI) | payer MEDICARE ==
[~2022-10-10] MED LIST changes: -ISOVUE-300 61% 100ML VIAL As Ordered ONE
== END ==
LOC: M PLAIMG 11:07
PROVIDERS: ATTEND General Practice
DX: C82.13 Follicular lymphoma grade II, intra-abdominal lymph nodes (principal); N13.39 Other hydronephrosis; K57.90 Diverticulosis of intestine, part unspecified, without perforation or abscess without bleeding; M47.9 Spondylosis, unspecified; Z96.642 Presence of left artificial hip joint

== ENCOUNTER → 2022-10-15 | Outpatient (CLI) | payer MEDICARE | LOC: M ONCR 08:47 | PROVIDERS: ATTEND General Practice | DX: C82.13 Follicular lymphoma grade II, intra-abdominal lymph nodes (principal); Z79.01 Long term (current) use of anticoagulants; Z79.899 Other long term (current) drug therapy; Z87.891 Personal history of nicotine dependence; Z88.0 Allergy status to penicillin; Z88.1 Allergy status to other antibiotic agents; Z92.3 Personal history of irradiation ==

== ENCOUNTER → 2022-11-25 | Outpatient (CLI) | payer MEDICARE, BC ==
[~2022-11-25] MED LIST changes: +ELIQ2.5T PO
== END ==
LOC: M ADAMS 08:24
PROVIDERS: ATTEND Family Medicine
DX: M43.16 Spondylolisthesis, lumbar region (principal); Z96.642 Presence of left artificial hip joint

== ENCOUNTER → 2022-12-19 | Outpatient (CLI) | payer MEDICARE ==
[~2022-12-19] MED LIST changes: +BACTDSTA PO; +FENT1DIS14 TOP; +METH-1164 PO
== END ==
LOC: M RAD 08:45
PROVIDERS: ATTEND Nurse Practitioner
DX: R10.9 Unspecified abdominal pain (principal)

== ENCOUNTER → 2023-01-19 | Outpatient (CLI) | payer MEDICARE ==
[~2023-01-19] MED LIST changes: +FENT1DIS34 TOP
[2023-01-19 10:10] LABS: BLOOD UREA NITROGEN 21 MG/DL (9-23); CREATININE FOR GFR 1.16 MG/DL (0.70-1.30); GLOMERULAR FILTRATION RATE > 60.0 (>49)
== END ==
LOC: M LAB 09:13
PROVIDERS: ATTEND Orthopaedic Surgery
DX: M54.50 Low back pain, unspecified (principal)

== ENCOUNTER 2023-02-19 22:48 | Emergency (ER) | payer MEDICARE ==
[~2023-02-19] VITALS: Ht 165.1 cm; Wt 69.0 kg
[~2023-02-19 22:48] MED LIST changes: +ACET-683 PO
[2023-02-19 22:49] VITALS: BP 147/69; TEMP 99.8; O2SAT 100
[2023-02-19] MEDS ORDERED: PERCOCET 5MG/325MG TAB PO ONE (23:50)
[2023-02-20] MEDS ORDERED: ELIQ2.5T PO (11:00)
[2023-02-20] MEDS ORDERED: PERCOCET PO (11:00)
== END 2023-02-20 00:51 | disposition home or self-care (01) ==
LOC: M ED 22:48
DX: M54.50 Low back pain, unspecified (principal); C85.90 Non-Hodgkin lymphoma, unspecified, unspecified site; Z88.0 Allergy status to penicillin; Z88.1 Allergy status to other antibiotic agents; Z79.01 Long term (current) use of anticoagulants; Z79.810 Long term (current) use of selective estrogen receptor modulators (SERMs); Z79.899 Other long term (current) drug therapy

== ENCOUNTER → 2023-02-26 | Outpatient (CLI) | payer MEDICARE ==
[~2023-02-26] MED LIST changes: +PERCOCET PO
[2023-02-26 14:56] LABS: BLOOD UREA NITROGEN 26 MG/DL (9-23); CREATININE FOR GFR 1.21 MG/DL (0.70-1.30); GLOMERULAR FILTRATION RATE > 60.0 (>49)
== END ==
LOC: M LAB 13:34
PROVIDERS: ATTEND Orthopaedic Surgery
DX: M54.50 Low back pain, unspecified (principal)

== ENCOUNTER → 2023-03-12 | Outpatient (CLI) | payer MEDICARE ==
[~2023-03-12] MED LIST changes: +DEXA2TA PO; +FENT12DI8 TOP; +GABA-282; +GABA-282 PO; +MORP15TA2 PO; +NORT25CA2 PO; +[UNRECOGNIZED DRUG - OTHER]
== END ==
LOC: M PAL 08:52
PROVIDERS: ATTEND Nurse Practitioner Family
DX: C85.90 Non-Hodgkin lymphoma, unspecified, unspecified site (principal); R52 Pain, unspecified; R60.0 Localized edema; Z51.5 Encounter for palliative care

== ENCOUNTER → 2023-03-13 | Outpatient (CLI) | payer MEDICARE | LOC: M PLARAD 08:02 | PROVIDERS: ATTEND Orthopaedic Surgery | DX: M47.816 Spondylosis without myelopathy or radiculopathy, lumbar region (principal); M48.061 Spinal stenosis, lumbar region without neurogenic claudication; M54.50 Low back pain, unspecified; C85.90 Non-Hodgkin lymphoma, unspecified, unspecified site; Z96.642 Presence of left artificial hip joint; C82.13 Follicular lymphoma grade II, intra-abdominal lymph nodes; M54.15 Radiculopathy, thoracolumbar region; Z92.3 Personal history of irradiation; Z92.21 Personal history of antineoplastic chemotherapy; Z87.891 Personal history of nicotine dependence; Z88.0 Allergy status to penicillin; Z88.8 Allergy status to other drugs, medicaments and biological substances; Z79.891 Long term (current) use of opiate analgesic; Z79.899 Other long term (current) drug therapy; R53.83 Other fatigue | CPT/HCPCS: 72158; G0463 ==

== ENCOUNTER → 2023-03-13 | Outpatient (CLI) | payer MEDICARE | LOC: M ONCR 11:02 | PROVIDERS: ATTEND General Practice | DX: C82.13 Follicular lymphoma grade II, intra-abdominal lymph nodes (principal); M54.15 Radiculopathy, thoracolumbar region; Z92.3 Personal history of irradiation; Z92.21 Personal history of antineoplastic chemotherapy; Z87.891 Personal history of nicotine dependence; Z88.0 Allergy status to penicillin; Z88.8 Allergy status to other drugs, medicaments and biological substances; Z79.891 Long term (current) use of opiate analgesic; Z79.899 Other long term (current) drug therapy; R53.83 Other fatigue ==

== ENCOUNTER → 2023-03-25 | Outpatient (CLI) | payer MEDICARE ==
[~2023-03-25] MED LIST changes: +LIDOCAINE 1% MDV 20ML VIAL As Ordered ONE; +OMEP-173 PO; -OXYB5TAB10 PO; +OXYB5TAB11 PO; +SUCR1TA PO
[2023-03-25 09:15] VITALS: TEMP 98.3
[2023-03-25 10:42] VITALS: BP 149/79; O2SAT 98
== END ==
LOC: M IRPRO 09:04
PROVIDERS: ATTEND Specialist
DX: R22.2 Localized swelling, mass and lump, trunk (principal); C82.95 Follicular lymphoma, unspecified, lymph nodes of inguinal region and lower limb

== ENCOUNTER → 2023-03-31 | Outpatient (CLI) | payer MEDICARE ==
[~2023-03-31] VITALS: Ht 160 cm; Wt 72.0 kg
[~2023-03-31] MED LIST changes: -LIDOCAINE 1% MDV 20ML VIAL As Ordered ONE
[2023-03-31 08:43] VITALS: BP 146/73; O2SAT 99
== END ==
LOC: M PAL 08:34
PROVIDERS: ATTEND Nurse Practitioner Adult Health
DX: C82.23 Follicular lymphoma grade III, unspecified, intra-abdominal lymph nodes (principal); G89.3 Neoplasm related pain (acute) (chronic); R22.2 Localized swelling, mass and lump, trunk; Z51.5 Encounter for palliative care; Z79.01 Long term (current) use of anticoagulants; Z79.52 Long term (current) use of systemic steroids; Z79.891 Long term (current) use of opiate analgesic; Z79.899 Other long term (current) drug therapy; Z82.41 Family history of sudden cardiac death; Z88.0 Allergy status to penicillin; Z88.1 Allergy status to other antibiotic agents; Z92.21 Personal history of antineoplastic chemotherapy; Z92.3 Personal history of irradiation; Z96.642 Presence of left artificial hip joint

== ENCOUNTER 2023-04-03 07:17 | Outpatient (RCR) | payer MEDICARE | END 2023-04-07 | LOC: M ONCR 07:17 | PROVIDERS: ATTEND General Practice | DX: Z51.0 Encounter for antineoplastic radiation therapy (principal); C79.51 Secondary malignant neoplasm of bone ==

== ENCOUNTER → 2023-04-09 | Outpatient (CLI) | payer MEDICARE | LOC: M CARPUL 12:59 | PROVIDERS: ATTEND Specialist | DX: Z79.811 Long term (current) use of aromatase inhibitors (principal) ==

== ENCOUNTER → 2023-04-29 | Outpatient (CLI) | payer MEDICARE ==
[~2023-04-29] VITALS: Ht 165.1 cm; Wt 73.1 kg
[~2023-04-29] MED LIST changes: +LORA-1041 PO; +NIRM1TAB PO; +POLY510P14 PO; +PRED50TA PO
[2023-04-29 08:58] VITALS: BP 118/68; O2SAT 97
== END ==
LOC: M PAL 08:12
PROVIDERS: ATTEND Nurse Practitioner Adult Health
DX: C82.23 Follicular lymphoma grade III, unspecified, intra-abdominal lymph nodes (principal); R50.9 Fever, unspecified; Z51.5 Encounter for palliative care; Z79.891 Long term (current) use of opiate analgesic; Z79.899 Other long term (current) drug therapy; Z82.41 Family history of sudden cardiac death; Z86.16 Personal history of COVID-19; Z88.0 Allergy status to penicillin; Z88.1 Allergy status to other antibiotic agents; Z92.21 Personal history of antineoplastic chemotherapy; Z92.3 Personal history of irradiation; Z96.642 Presence of left artificial hip joint

== ENCOUNTER → 2023-05-25 | Outpatient (REF) | payer MEDICARE, BC ==
[~2023-05-25] MED LIST changes: +DOXY100T PO; +FLAX1CAP5 PO; +NEUR300C PO; +VITA100065 PO
[2023-05-25 15:54] LABS: AMORPHOUS SEDIMENT MODERATE (NEGATIVE); APPEARANCE, URINE TURBID (CLEAR); BACTERIA, URINE AUTO NEGATIVE (NEGATIVE); BILIRUBIN, URINE AUTO NEGATIVE (NEGATIVE); BLOOD, URINE BLOOD NEGATIVE (NEGATIVE); CALCIUM OXALATE CRYSTALS SMALL; COLOR, URINE AMBER (YELLOW); GLUCOSE, URINE (UA) AUTO NEGATIVE (NEGATIVE); KETONE, URINE AUTO NEGATIVE (NEGATIVE); LEUKOCYTE ESTERASE, URINE AUTO NEGATIVE (NEGATIVE); MUCUS, URINE SMALL (NEGATIVE); NITRITE, URINE AUTO NEGATIVE (NEGATIVE); PROTEIN, URINE AUTO 1+ mg/dL (NEGATIVE); RBC, URINE AUTO 0 /HPF (0-3); SPECIFIC GRAVITY URINE AUTO 1.027 (1.002-1.035); SQUAMOUS EPITHELIAL CELL UR AU 0 /HPF (0-6); UROBILINOGEN, URINE AUTO 0.2 mg/dL (0.0-2.0); WBC, URINE AUTO 2 /HPF (0-3)
== END ==
LOC: M SFHCPLAZ 15:18
PROVIDERS: ATTEND Internal Medicine Infectious Disease
DX: R10.9 Unspecified abdominal pain (principal)

== ENCOUNTER → 2023-05-26 | Outpatient (CLI) | payer MEDICARE ==
[~2023-05-26] VITALS: Ht 165.1 cm; Wt 67.8 kg
[~2023-05-26] MED LIST changes: +CEFD1CAP9 PO; +HYDR-643 PO; +LIDO1PAD13 TOP; +ROBI1LIQ9 PO; +TESSALON PERLES
[2023-05-26 08:32] VITALS: BP 118/68; O2SAT 97
[2023-05-26 09:00] VITALS: BP 98/56; O2SAT 97
== END ==
LOC: M PAL 08:27
PROVIDERS: ATTEND Nurse Practitioner Adult Health
DX: C82.23 Follicular lymphoma grade III, unspecified, intra-abdominal lymph nodes (principal); R78.81 Bacteremia; U07.1 COVID-19; J01.00 Acute maxillary sinusitis, unspecified; Z51.5 Encounter for palliative care; R50.9 Fever, unspecified; Z79.891 Long term (current) use of opiate analgesic; Z79.899 Other long term (current) drug therapy; Z82.41 Family history of sudden cardiac death; Z88.0 Allergy status to penicillin; Z88.1 Allergy status to other antibiotic agents; Z92.21 Personal history of antineoplastic chemotherapy; Z92.3 Personal history of irradiation; Z96.642 Presence of left artificial hip joint
CPT/HCPCS: 87040; G0463

== ENCOUNTER → 2023-05-26 | Outpatient (REF) | payer MEDICARE ==
[~2023-05-26] MED LIST changes: -CEFD1CAP9 PO; -HYDR-643 PO; -LIDO1PAD13 TOP; -ROBI1LIQ9 PO; -TESSALON PERLES
== END ==
LOC: M LAB REF 09:12
PROVIDERS: ATTEND Internal Medicine Infectious Disease
DX: R78.81 Bacteremia (principal)

== ENCOUNTER → 2023-05-29 | Outpatient (CLI) | payer MEDICARE ==
[~2023-05-29] MED LIST changes: +LIDO1PAD13 TOP
[2023-05-29 11:06] LABS: C REACTIVE PROTEIN QUANTITATIV 15.5 MG/DL (<1.0)
[2023-05-29 11:19] LABS: PROCALCITONIN 12.46 ng/ml
[2023-05-30 21:09] LABS: CMV QUANT DNA PCR (PLASMA) Negative (Negative)
== END ==
LOC: M PLALAB 08:48
PROVIDERS: ATTEND Internal Medicine Infectious Disease
DX: R50.9 Fever, unspecified (principal); B96.20 Unspecified Escherichia coli [E. coli] as the cause of diseases classified elsewhere

== ENCOUNTER → 2023-05-29 | Outpatient (REF) | payer MEDICARE ==
[~2023-05-29] MED LIST changes: +CEFD1CAP9 PO
== END ==
LOC: M LAB REF 17:34
PROVIDERS: ATTEND Surgery
DX: R78.81 Bacteremia (principal)

== ENCOUNTER → 2023-05-29 | Day surgery (SDC) | payer MEDICARE ==
[~2023-05-29] VITALS: Ht 165.1 cm; Wt 71.7 kg
[2023-05-29 15:41] VITALS: BP 152/80; TEMP 98; O2SAT 98
== END | disposition home or self-care (01) ==
LOC: M SDC 15:21
PROVIDERS: ATTEND Surgery
DX: Z45.2 Encounter for adjustment and management of vascular access device (principal); Z53.9 Procedure and treatment not carried out, unspecified reason

== ENCOUNTER → 2023-06-10 | Outpatient (CLI) | payer MEDICARE ==
[~2023-06-10] MED LIST changes: +HYDR-643 PO; +ROBI1LIQ9 PO; +TESSALON PERLES
== END ==
LOC: M ADAMS 12:21
PROVIDERS: ATTEND Family Medicine
DX: R05.2 Subacute cough (principal)

== ENCOUNTER → 2023-06-10 | Outpatient (REF) | payer MEDICARE ==
[2023-06-10 17:16] LABS: BASO # 0.1 10^3/uL (0.0-0.2); BASO % 0.8 % (0.0-1.0); EOS # 0.2 10^3/uL (0.0-0.5); EOS % 3.4 % (0.0-3.0); HEMATOCRIT 27.9 % (42.0-52.0); HEMOGLOBIN 8.5 g/dl (13.5-17.5); LYMPH # 0.2 10^3/uL (1.5-5.0); LYMPH % 2.9 % (24.0-44.0); MEAN CORPUSCULAR HEMOGLOBIN 30.7 pg (27.0-33.0); MEAN CORPUSCULAR HGB CONC 30.5 g/dl (32.0-36.5); MEAN CORPUSCULAR VOLUME 100.7 fl (80.0-96.0); MONO # 0.8 10^3/uL (0.0-0.8); MONO % 12.9 % (2.0-8.0); NEUTROPHILS # 4.8 10^3/uL (1.5-8.5); RED BLOOD COUNT 2.77 10^6/uL (4.30-6.10); WHITE BLOOD COUNT 6.1 10^3/uL (4.0-10.0)
[2023-06-10 19:21] LABS: ALKALINE PHOSPHATASE 261 U/L (46-116); ALT/SGPT 50 U/L (7.0-40); AST/SGOT 33 U/L (<34); BILIRUBIN,TOTAL 0.4 MG/DL (0.3-1.2); BLOOD UREA NITROGEN 17 MG/DL (9-23); CALCIUM LEVEL 8.5 MG/DL (8.3-10.6); CARBON DIOXIDE LEVEL 27 MMOL/L (20-31); CHLORIDE LEVEL 102 MMOL/L (98-107); CREATININE FOR GFR 0.86 MG/DL (0.70-1.30); FREE T4 1.09 NG/DL (0.89-1.76); GLOMERULAR FILTRATION RATE > 60.0 (>49); GLUCOSE, FASTING 89 MG/DL (74-106); SODIUM LEVEL 137 MMOL/L (136-145); THYROID STIMULATING HORMONE 0.969 uIU/ML (0.55-4.78); TOTAL PROTEIN 5.6 G/DL (5.7-8.2)
[2023-06-10 19:45] LABS: PLATELET COUNT, AUTOMATED 99 10^3/uL (150-450)
== END ==
LOC: M SFHCADAM 12:18
PROVIDERS: ATTEND Family Medicine
DX: Z00.00 Encounter for general adult medical examination without abnormal findings (principal); R60.0 Localized edema; R05.2 Subacute cough; R06.9 Unspecified abnormalities of breathing

== ENCOUNTER → 2023-06-11 | Outpatient (CLI) | payer MEDICARE ==
[~2023-06-11] VITALS: Ht 165.1 cm; Wt 73.6 kg
[2023-06-11 08:44] VITALS: BP 140/66; O2SAT 96
== END ==
LOC: M PAL 08:27
PROVIDERS: ATTEND Nurse Practitioner Adult Health
DX: G89.3 Neoplasm related pain (acute) (chronic) (principal); C82.23 Follicular lymphoma grade III, unspecified, intra-abdominal lymph nodes; L29.9 Pruritus, unspecified; R05.9 Cough, unspecified; M54.50 Low back pain, unspecified; R60.0 Localized edema; R21 Rash and other nonspecific skin eruption; R53.83 Other fatigue; Z86.16 Personal history of COVID-19; Z51.5 Encounter for palliative care; Z79.891 Long term (current) use of opiate analgesic; Z79.899 Other long term (current) drug therapy; Z82.41 Family history of sudden cardiac death; Z87.891 Personal history of nicotine dependence; Z88.0 Allergy status to penicillin; Z88.1 Allergy status to other antibiotic agents; Z92.21 Personal history of antineoplastic chemotherapy; Z92.3 Personal history of irradiation; Z96.642 Presence of left artificial hip joint

== ENCOUNTER → 2023-06-25 | Outpatient (CLI) | payer MEDICARE ==
[~2023-06-25] MED LIST changes: +LIDOCAINE 1% MDV 20ML VIAL As Ordered ONE; +LIDOCAINE W/EPINEPHRINE 1% 20ML VIAL As Ordered ONE; +LORA-243 PO; +MIDAZOLAM INJ 2MG/2ML VIAL As Ordered ONE; +VANCOMYCIN 1000MG/20ML VIAL As Ordered ONE; +VANCOMYCIN HCL 1,000 MG, VIAL MATE ADAPTER 1 EACH in D5W 250 ML IV ONE; +fentaNYL 100 MCG/2 ML INJECTION As Ordered ONE
[2023-06-25 11:43] VITALS: TEMP 98.6
[2023-06-25 12:22] LABS: INR 1.03; PROTHROMBIN TIME 13.2 SECONDS (12.5-14.5)
[2023-06-25 14:00] VITALS: BP 134/71; O2SAT 98
== END ==
LOC: M IRPRO 11:31
PROVIDERS: ATTEND Specialist
DX: C82.90 Follicular lymphoma, unspecified, unspecified site (principal)
CPT/HCPCS: 36561; 85610; 99152; 99153; J2250; J3010; J3370

== ENCOUNTER 2023-06-30 10:20 | Outpatient (CLI) | payer MEDICARE ==
[~2023-06-30] VITALS: Ht 165.1 cm; Wt 68.6 kg
[~2023-06-30 10:20] MED LIST changes: -LIDOCAINE 1% MDV 20ML VIAL As Ordered ONE; -LIDOCAINE W/EPINEPHRINE 1% 20ML VIAL As Ordered ONE; -MIDAZOLAM INJ 2MG/2ML VIAL As Ordered ONE; -VANCOMYCIN 1000MG/20ML VIAL As Ordered ONE; -VANCOMYCIN HCL 1,000 MG, VIAL MATE ADAPTER 1 EACH in D5W 250 ML IV ONE; -fentaNYL 100 MCG/2 ML INJECTION As Ordered ONE
[2023-06-30 10:45] VITALS: BP_SYST 116; O2SAT 98
[2023-06-30] MEDS ORDERED: NS 250 ML IV ONE (10:55)
[2023-06-30] MEDS ORDERED: diphenhydrAMINE 25MG CAP PO ONE (10:55)
[2023-06-30] MEDS ORDERED: SODIUM CHLORIDE 0.9% INJ 10 ML SYR IV PRN (10:55)
[2023-06-30] MEDS ORDERED: ACETAMINOPHEN 325 MG TAB PO ONE (10:55)
[2023-06-30 11:24] VITALS: BP 125/63; TEMP 97.8; O2SAT 100
[2023-06-30 12:31] VITALS: BP 134/70; TEMP 98.2; O2SAT 99
[2023-06-30 13:29] VITALS: BP 132/66; TEMP 97.8; O2SAT 99
[2023-06-30 14:18] VITALS: BP 146/71; TEMP 97.1; O2SAT 99
[2023-06-30 15:00] VITALS: BP 151/76; O2SAT 100
[2023-07-01] MEDS ORDERED: SODIUM CHLORIDE 0.9% INJ 10 ML SYR IV SCH (09:00)
== END 2023-06-30 15:00 | disposition home or self-care (01) ==
LOC: M INFU 10:20
PROVIDERS: ATTEND Specialist
DX: C82.90 Follicular lymphoma, unspecified, unspecified site (principal); Z88.0 Allergy status to penicillin; Z88.8 Allergy status to other drugs, medicaments and biological substances
CPT/HCPCS: 36430; 96523; P9016

== ENCOUNTER 2023-07-02 17:13 | Emergency (ER) | payer MEDICARE ==
[~2023-07-02] VITALS: Ht 165.1 cm; Wt 68.2 kg
[2023-07-02 20:36] LABS: BASO % 0.3 % (0.0-1.0); EOS # 0.1 10^3/uL (0.0-0.5); EOS % 1.9 % (0.0-3.0); HEMATOCRIT 32.5 % (42.0-52.0); HEMOGLOBIN 10.7 g/dl (13.5-17.5); LYMPH # 0.1 10^3/uL (1.5-5.0); LYMPH % 1.4 % (24.0-44.0); MEAN CORPUSCULAR HEMOGLOBIN 31.6 pg (27.0-33.0); MEAN CORPUSCULAR HGB CONC 32.9 g/dl (32.0-36.5); MEAN CORPUSCULAR VOLUME 95.9 fl (80.0-96.0); MONO # 0.1 10^3/uL (0.0-0.8); MONO % 0.9 % (2.0-8.0); NEUTROPHILS % 95.1 % (36.0-66.0); PLATELET COUNT, AUTOMATED 119 10^3/uL (150-450); RED BLOOD COUNT 3.39 10^6/uL (4.30-6.10); WHITE BLOOD COUNT 7.4 10^3/uL (4.0-10.0)
[2023-07-02] MEDS ORDERED: IPRATROPIUM 0.5MG/ALBUTEROL 2.5MG INH SOL UD 3ML (DUONEB) NEB ONE ×2 (20:40)
[2023-07-02 20:58] LABS: ALBUMIN 2.8 G/DL (3.2-5.2); ALKALINE PHOSPHATASE 168 U/L (46-116); ALT/SGPT 23 U/L (7.0-40); AST/SGOT 23 U/L (<34); BILIRUBIN,DIRECT 0.4 MG/DL (<0.4); BILIRUBIN,TOTAL 0.9 MG/DL (0.3-1.2); BLOOD UREA NITROGEN 19 MG/DL (9-23); CALCIUM LEVEL 8.6 MG/DL (8.3-10.6); CARBON DIOXIDE LEVEL 29 MMOL/L (20-31); CHLORIDE LEVEL 103 MMOL/L (98-107); CREATININE FOR GFR 0.76 MG/DL (0.70-1.30); GLOMERULAR FILTRATION RATE > 60.0 (>49); GLUCOSE, FASTING 92 MG/DL (74-106); POTASSIUM SERUM 3.7 MMOL/L (3.5-5.1); SODIUM LEVEL 136 MMOL/L (136-145); TOTAL PROTEIN 5.5 G/DL (5.7-8.2)
[2023-07-02 21:00] LABS: FREE T4 1.15 NG/DL (0.89-1.76); THYROID STIMULATING HORMONE 0.566 uIU/ML (0.55-4.78)
[2023-07-02] MEDS ORDERED: COMBAER6 INH (23:43)
[2023-07-02] MEDS ORDERED: PRED20TA PO (23:43)
[2023-07-03 00:15] VITALS: BP 141/60; TEMP 98.3; O2SAT 98
== END 2023-07-03 00:15 | disposition home or self-care (01) ==
LOC: M ED 17:13
DX: R50.9 Fever, unspecified (principal); R05.9 Cough, unspecified; C85.90 Non-Hodgkin lymphoma, unspecified, unspecified site; M54.50 Low back pain, unspecified; Z96.642 Presence of left artificial hip joint

== ENCOUNTER → 2023-07-07 | Outpatient (CLI) | payer MEDICARE ==
[~2023-07-07] MED LIST changes: +COMBAER6 INH; +PRED20TA PO
== END ==
LOC: M ONCR 08:09
PROVIDERS: ATTEND General Practice
DX: C82.13 Follicular lymphoma grade II, intra-abdominal lymph nodes (principal); Z71.2 Person consulting for explanation of examination or test findings; Z79.899 Other long term (current) drug therapy; Z86.16 Personal history of COVID-19; Z87.891 Personal history of nicotine dependence; Z88.0 Allergy status to penicillin; Z88.1 Allergy status to other antibiotic agents; Z92.21 Personal history of antineoplastic chemotherapy; Z92.3 Personal history of irradiation

== ENCOUNTER 2023-07-15 11:06 | Inpatient (IN) | payer MEDICARE ==
[~2023-07-15] VITALS: Ht 165.1 cm; Wt 65.5 kg
[2023-07-15 13:37] LABS: HEMATOCRIT 32.6 % (42.0-52.0); HEMOGLOBIN 10.2 g/dl (13.5-17.5); MEAN CORPUSCULAR HEMOGLOBIN 30.4 pg (27.0-33.0); MEAN CORPUSCULAR HGB CONC 31.3 g/dl (32.0-36.5); MEAN CORPUSCULAR VOLUME 97.3 fl (80.0-96.0); RED BLOOD COUNT 3.35 10^6/uL (4.30-6.10); WHITE BLOOD COUNT 2.4 10^3/uL (4.0-10.0)
[2023-07-15 13:44] LABS: PLATELET COUNT, AUTOMATED 39 10^3/uL (150-450)
[2023-07-15 13:59] LABS: ALBUMIN 2.5 G/DL (3.2-5.2); ALKALINE PHOSPHATASE 253 U/L (46-116); ALT/SGPT 76 U/L (7.0-40); AST/SGOT 29 U/L (<34); BILIRUBIN,DIRECT 0.6 MG/DL (<0.4); BILIRUBIN,TOTAL 0.9 MG/DL (0.3-1.2); BLOOD UREA NITROGEN 28 MG/DL (9-23); CARBON DIOXIDE LEVEL 29 MMOL/L (20-31); CHLORIDE LEVEL 98 MMOL/L (98-107); CREATININE FOR GFR 0.91 MG/DL (0.70-1.30); GLOMERULAR FILTRATION RATE > 60.0 (>42); GLUCOSE, FASTING 96 MG/DL (74-106); POTASSIUM SERUM 4.4 MMOL/L (3.5-5.1); SODIUM LEVEL 133 MMOL/L (136-145); TOTAL PROTEIN 5.9 G/DL (5.7-8.2)
[2023-07-15 14:09] LABS: METAMYELOCYTES 2 % (0-0); MONOCYTES 5 % (0-5); NEUTROPHILS 89 % (28-66); PLATELET ESTIMATE MARKED DECREASE (NORMAL)
[2023-07-15 14:12] LABS: DOHLE BODIES 1+; TOXIC GRANULATION 2+
[2023-07-15 14:14] LABS: MICROCYTOSIS 1+; TEAR DROP CELLS 1+
[2023-07-15] MEDS ORDERED: ISOVUE-370 76% 100ML VIAL As Ordered ONE (14:15)
[2023-07-15] MEDS ORDERED: HOME MED LIST COMPLETE! XX SCH (14:40)
[2023-07-15] MEDS: DOXYCYCLINE HYCLATE 100MG TABLET PO ONE (15:41)
[2023-07-15] MEDS: cefTRIAXone SOD 1 GM in D5W MINI-BAG PLUS 50 ML IV ONE (15:41)
[2023-07-15] MEDS ORDERED: MOM 30ML SUSPENSION UDC PO PRN (16:30)
[2023-07-15 17:08] LABS: PROCALCITONIN 1.66 ng/ml
[2023-07-15] MEDS: ACETAMINOPHEN TAB 650MG DOSE (2X325MG) PO PRN (17:53)
[2023-07-15] MEDS: dexAMETHasone 4 MG TAB PO SCH (18:29)
[2023-07-15 18:44] LABS: INR 1.2; PROTHROMBIN TIME 14.8 SECONDS (12.5-14.5)
[2023-07-15 18:45] LABS: PARTIAL THROMBOPLASTIN TIME 32.9 SECONDS (24.8-34.2)
[2023-07-15] MEDS: LR 1,000 ML IV SCH (18:51)
[2023-07-15] MEDS: ACETAMINOPHEN 325 MG TAB PO ONE (18:56)
[2023-07-15] MEDS: ALBUTEROL 90 MCG/ACT 8GM HFA INHALER INH SCH (19:35)
[2023-07-15] MEDS: DOCUSATE SODIUM 100MG CAPSULE PO SCH (20:10)
[2023-07-15] MEDS: MIDODRINE 5 MG TAB PO ONE (21:40)
[2023-07-15 23:34] VITALS: BP 101/58; TEMP 97.5; O2SAT 96
[2023-07-16 01:04] VITALS: O2SAT 96
[2023-07-16] MEDS: DOXYCYCLINE HYCLATE 100MG TABLET PO SCH (03:00)
[2023-07-16 05:20] VITALS: BP 108/50; TEMP 98.1; O2SAT 95
[2023-07-16 06:20] VITALS: O2SAT 93
[2023-07-16 07:02] LABS: BASO # 0.1 10^3/uL (0.0-0.2); BASO % 0.9 % (0.0-1.0); HEMOGLOBIN 9.2 g/dl (13.5-17.5); LYMPH % 0.4 % (24.0-44.0); MEAN CORPUSCULAR HEMOGLOBIN 30.7 pg (27.0-33.0); MEAN CORPUSCULAR HGB CONC 31.7 g/dl (32.0-36.5); MEAN CORPUSCULAR VOLUME 96.7 fl (80.0-96.0); MONO # 0.2 10^3/uL (0.0-0.8); MONO % 3.3 % (2.0-8.0); NEUTROPHILS % 94.6 % (36.0-66.0); WHITE BLOOD COUNT 7.4 10^3/uL (4.0-10.0)
[2023-07-16 07:11] LABS: PLATELET COUNT, AUTOMATED 37 10^3/uL (150-450)
[2023-07-16 07:29] LABS: ALKALINE PHOSPHATASE 211 U/L (46-116); ALT/SGPT 60 U/L (7.0-40); AST/SGOT 29 U/L (<34); BILIRUBIN,DIRECT 0.4 MG/DL (<0.4); BILIRUBIN,TOTAL 0.6 MG/DL (0.3-1.2); BLOOD UREA NITROGEN 27 MG/DL (9-23); CALCIUM LEVEL 8.5 MG/DL (8.3-10.6); CARBON DIOXIDE LEVEL 29 MMOL/L (20-31); CHLORIDE LEVEL 99 MMOL/L (98-107); CREATININE FOR GFR 0.85 MG/DL (0.70-1.30); GLOMERULAR FILTRATION RATE > 60.0 (>42); GLUCOSE, FASTING 142 MG/DL (74-106); POTASSIUM SERUM 4.7 MMOL/L (3.5-5.1); SODIUM LEVEL 135 MMOL/L (136-145); TOTAL PROTEIN 4.9 G/DL (5.7-8.2)
[2023-07-16 14:00] VITALS: BP 111/66; TEMP 99.1; O2SAT 95
[2023-07-16] MEDS: cefTRIAXone SOD 1 GM in D5W MINI-BAG PLUS 50 ML IV SCH (18:22)
[2023-07-16 19:43] VITALS: BP 115/60; TEMP 99.1; O2SAT 95
[2023-07-17 04:16] VITALS: BP 104/61; TEMP 98.5; O2SAT 93
[2023-07-17 07:44] LABS: BASO % 0.1 % (0.0-1.0); HEMATOCRIT 25.7 % (42.0-52.0); HEMOGLOBIN 8.5 g/dl (13.5-17.5); LYMPH # 0.1 10^3/uL (1.5-5.0); LYMPH % 0.7 % (24.0-44.0); MEAN CORPUSCULAR HEMOGLOBIN 31.3 pg (27.0-33.0); MEAN CORPUSCULAR HGB CONC 33.1 g/dl (32.0-36.5); MEAN CORPUSCULAR VOLUME 94.5 fl (80.0-96.0); MONO # 0.3 10^3/uL (0.0-0.8); NEUTROPHILS # 6.9 10^3/uL (1.5-8.5); NEUTROPHILS % 92.8 % (36.0-66.0); RED BLOOD COUNT 2.72 10^6/uL (4.30-6.10); WHITE BLOOD COUNT 7.4 10^3/uL (4.0-10.0)
[2023-07-17 07:45] LABS: PLATELET COUNT, AUTOMATED 33 10^3/uL (150-450)
[2023-07-17 08:12] LABS: ALBUMIN 1.9 G/DL (3.2-5.2); ALKALINE PHOSPHATASE 196 U/L (46-116); ALT/SGPT 57 U/L (7.0-40); AST/SGOT 36 U/L (<34); BILIRUBIN,DIRECT 0.3 MG/DL (<0.4); BILIRUBIN,TOTAL 0.5 MG/DL (0.3-1.2); BLOOD UREA NITROGEN 31 MG/DL (9-23); CALCIUM LEVEL 8.3 MG/DL (8.3-10.6); CARBON DIOXIDE LEVEL 28 MMOL/L (20-31); CHLORIDE LEVEL 100 MMOL/L (98-107); CREATININE FOR GFR 0.76 MG/DL (0.70-1.30); GLOMERULAR FILTRATION RATE > 60.0 (>42); GLUCOSE, FASTING 140 MG/DL (74-106); POTASSIUM SERUM 3.9 MMOL/L (3.5-5.1); SODIUM LEVEL 135 MMOL/L (136-145); TOTAL PROTEIN 4.7 G/DL (5.7-8.2)
[2023-07-17] MEDS: BACTRIM 80MG/400MG TAB PO SCH (11:58)
[2023-07-17 14:00] VITALS: BP 104/61; TEMP 97.7; O2SAT 96
[2023-07-18 06:00] VITALS: BP 127/66; TEMP 98.8; O2SAT 95
[2023-07-18 06:17] LABS: BASO % 0.2 % (0.0-1.0); HEMATOCRIT 25.3 % (42.0-52.0); HEMOGLOBIN 8.2 g/dl (13.5-17.5); LYMPH % 0.7 % (24.0-44.0); MEAN CORPUSCULAR HEMOGLOBIN 30.3 pg (27.0-33.0); MEAN CORPUSCULAR HGB CONC 32.4 g/dl (32.0-36.5); MEAN CORPUSCULAR VOLUME 93.4 fl (80.0-96.0); MONO # 0.3 10^3/uL (0.0-0.8); MONO % 5.6 % (2.0-8.0); NEUTROPHILS # 5.3 10^3/uL (1.5-8.5); NEUTROPHILS % 92.1 % (36.0-66.0); RED BLOOD COUNT 2.71 10^6/uL (4.30-6.10); WHITE BLOOD COUNT 5.8 10^3/uL (4.0-10.0)
[2023-07-18 06:19] LABS: PLATELET COUNT, AUTOMATED 34 10^3/uL (150-450)
[2023-07-18 06:41] LABS: ALBUMIN 1.8 G/DL (3.2-5.2); ALKALINE PHOSPHATASE 202 U/L (46-116); ALT/SGPT 96 U/L (7.0-40); AST/SGOT 59 U/L (<34); BILIRUBIN,DIRECT 0.3 MG/DL (<0.4); BILIRUBIN,TOTAL 0.5 MG/DL (0.3-1.2); BLOOD UREA NITROGEN 31 MG/DL (9-23); CALCIUM LEVEL 8.1 MG/DL (8.3-10.6); CARBON DIOXIDE LEVEL 26 MMOL/L (20-31); CHLORIDE LEVEL 102 MMOL/L (98-107); CREATININE FOR GFR 0.77 MG/DL (0.70-1.30); GLOMERULAR FILTRATION RATE > 60.0 (>42); GLUCOSE, FASTING 121 MG/DL (74-106); POTASSIUM SERUM 4.2 MMOL/L (3.5-5.1); SODIUM LEVEL 135 MMOL/L (136-145); TOTAL PROTEIN 4.6 G/DL (5.7-8.2)
[2023-07-18] MEDS: guaiFENesin/CODEINE SYRUP 5 ML UDC PO SCH (13:45)
[2023-07-18 14:00] VITALS: BP 125/66; TEMP 97.9; O2SAT 94
[2023-07-18 21:03] VITALS: TEMP 97.8
[2023-07-18 21:13] VITALS: BP 135/73; O2SAT 95
[2023-07-19 04:30] VITALS: BP 133/76; TEMP 97.8; O2SAT 97
[2023-07-19 06:04] LABS: BASO % 0.2 % (0.0-1.0); HEMATOCRIT 24.5 % (42.0-52.0); LYMPH % 0.4 % (24.0-44.0); MEAN CORPUSCULAR HEMOGLOBIN 30.9 pg (27.0-33.0); MEAN CORPUSCULAR HGB CONC 32.7 g/dl (32.0-36.5); MEAN CORPUSCULAR VOLUME 94.6 fl (80.0-96.0); MONO # 0.3 10^3/uL (0.0-0.8); MONO % 5.5 % (2.0-8.0); NEUTROPHILS # 5.3 10^3/uL (1.5-8.5); NEUTROPHILS % 92.8 % (36.0-66.0); RED BLOOD COUNT 2.59 10^6/uL (4.30-6.10); WHITE BLOOD COUNT 5.7 10^3/uL (4.0-10.0)
[2023-07-19 06:06] LABS: PLATELET COUNT, AUTOMATED 32 10^3/uL (150-450)
[2023-07-19 06:40] LABS: BLOOD UREA NITROGEN 30 MG/DL (9-23); CALCIUM LEVEL 8.2 MG/DL (8.3-10.6); CARBON DIOXIDE LEVEL 27 MMOL/L (20-31); CHLORIDE LEVEL 101 MMOL/L (98-107); CREATININE FOR GFR 0.82 MG/DL (0.70-1.30); GLOMERULAR FILTRATION RATE > 60.0 (>42); GLUCOSE, FASTING 89 MG/DL (74-106); POTASSIUM SERUM 4.5 MMOL/L (3.5-5.1); SODIUM LEVEL 135 MMOL/L (136-145)
[2023-07-19 06:50] LABS: PROCALCITONIN 1.31 ng/ml
[2023-07-19] MEDS ORDERED: SULF400T14 PO (10:30)
[2023-07-19] MEDS ORDERED: DOXY100T PO (10:30)
[2023-07-19] MEDS ORDERED: DEXA4TA PO (10:30)
[2023-07-19] MEDS ORDERED: CEFP100T PO (10:30)
[2023-07-19] MEDS ORDERED: GUAI400T9 PO (10:33)
[2023-07-19] MEDS ORDERED: DEXA6TAB PO (10:34)
[2023-07-19] MEDS ORDERED: CEFP200T PO (10:39)
[2023-07-19] MEDS: cefTRIAXone SOD 1 GM in D5W MINI-BAG PLUS 50 ML IV ONE (12:03)
== END 2023-07-19 13:36 | disposition home or self-care (01) | DRG 871 ==
LOC: M ED 11:06 → M ED INP 16:26 → M MSPAV 23:31
PROVIDERS: ADMIT Student in an Organized Health Care Education/Training Program; ATTEND Student in an Organized Health Care Education/Training Program
DX: A41.9 Sepsis, unspecified organism (principal); J96.01 Acute respiratory failure with hypoxia; J12.82 Pneumonia due to coronavirus disease 2019; U07.1 COVID-19; D61.818 Other pancytopenia; C82.90 Follicular lymphoma, unspecified, unspecified site; I82.532 Chronic embolism and thrombosis of left popliteal vein; I82.512 Chronic embolism and thrombosis of left femoral vein; J47.9 Bronchiectasis, uncomplicated; Z88.0 Allergy status to penicillin; Z88.8 Allergy status to other drugs, medicaments and biological substances; Z79.899 Other long term (current) drug therapy; Z95.2 Presence of prosthetic heart valve; Z96.642 Presence of left artificial hip joint

== ENCOUNTER → 2023-07-15 | Outpatient (CLI) | payer MEDICARE | LOC: M RAD 08:56 | PROVIDERS: ATTEND Specialist | DX: C82.43 Follicular lymphoma grade IIIb, intra-abdominal lymph nodes (principal) ==

== ENCOUNTER 2023-07-28 10:47 | Inpatient (IN) | payer MEDICARE ==
[~2023-07-28] VITALS: Ht 165.1 cm; Wt 65.3 kg
[~2023-07-28 10:47] MED LIST changes: -BACT400T PO; +ENOXAPARIN 40MG/0.4ML SYRINGE (J1650 PER 10MG) SC SCH
[2023-07-28 11:23] VITALS: BP 107/55
[2023-07-28 11:24] VITALS: BP 107/55; TEMP 101.8; O2SAT 95
[2023-07-28] MEDS ORDERED: BACT400T PO (12:26)
[2023-07-28] MEDS ORDERED: HOME MED LIST COMPLETE! XX SCH (12:30)
[2023-07-28 14:07] VITALS: TEMP 99.3
[2023-07-28] MEDS ORDERED: ISOVUE-370 76% 100ML VIAL As Ordered ONE (15:02)
[2023-07-28 15:14] VITALS: BP 100/56; TEMP 98.5; O2SAT 95
[2023-07-28] MEDS: CEFEPIME HCL 2 GM in D5W MINI-BAG PLUS 50 ML IV SCH (16:34)
[2023-07-28] MEDS ORDERED: VANCOMYCIN HCL 750 MG, VIAL MATE ADAPTER 1 EACH in D5W 250 ML IV ONE ×2 (17:00→18:00)
[2023-07-28] MEDS: VANCOMYCIN HCL 1,000 MG, VIAL MATE ADAPTER 1 EACH in D5W 250 ML IV ONE (17:38)
[2023-07-28 19:42] VITALS: BP 102/60; TEMP 99.4; O2SAT 93
[2023-07-28] MEDS: VANCOMYCIN HCL 1,000 MG, VIAL MATE ADAPTER 1 EACH in D5W 250 ML IV SCH (21:15)
[2023-07-28 23:01] VITALS: BP 100/58; TEMP 98.4; O2SAT 95
[2023-07-28] MEDS: REMDESIVIR 200 MG in NS 250 ML IV ONE (23:10)
[2023-07-29] VITALS (12 sets, daily range): BP systolic 104–140; BP diastolic 56–67; TEMP 96.9–99.2; O2SAT 93–98
[2023-07-29 08:53] LABS: HEMATOCRIT 26.1 % (42.0-52.0); HEMOGLOBIN 8.1 g/dl (13.5-17.5); MEAN CORPUSCULAR HEMOGLOBIN 31.4 pg (27.0-33.0); MEAN CORPUSCULAR VOLUME 101.2 fl (80.0-96.0); RED BLOOD COUNT 2.58 10^6/uL (4.30-6.10); WHITE BLOOD COUNT 3.3 10^3/uL (4.0-10.0)
[2023-07-29 08:55] LABS: PLATELET COUNT, AUTOMATED 46 10^3/uL (150-450)
[2023-07-29 09:13] LABS: VANCOMYCIN LEVEL TROUGH 13.5 UG/ML (10.0-20.0)
[2023-07-29 09:21] LABS: ALKALINE PHOSPHATASE 181 U/L (46-116); ALT/SGPT 50 U/L (7.0-40); AST/SGOT 40 U/L (<34); BILIRUBIN,TOTAL 0.3 MG/DL (0.3-1.2); BLOOD UREA NITROGEN 20 MG/DL (9-23); CALCIUM LEVEL 7.5 MG/DL (8.3-10.6); CARBON DIOXIDE LEVEL 26 MMOL/L (20-31); CHLORIDE LEVEL 103 MMOL/L (98-107); CREATININE FOR GFR 0.77 MG/DL (0.70-1.30); GLOMERULAR FILTRATION RATE > 60.0 (>42); GLUCOSE, FASTING 134 MG/DL (74-106); MAGNESIUM LEVEL 1.7 MG/DL (1.8-2.4); SODIUM LEVEL 134 MMOL/L (136-145); TOTAL PROTEIN 4.5 G/DL (5.7-8.2)
[2023-07-29] MEDS: VANCOMYCIN HCL 750 MG, VIAL MATE ADAPTER 1 EACH in D5W 250 ML IV SCH (09:45)
[2023-07-29] MEDS: ENOXAPARIN 40MG/0.4ML SYRINGE (J1650 PER 10MG) SC SCH (10:30)
[2023-07-29] MEDS: diphenhydrAMINE 50MG PO PRIOR TO INFUSION PO SCH (15:01)
[2023-07-29] MEDS: ACETAMINOPHEN 650MG PO PRIOR TO INFUSION PO SCH (15:01)
[2023-07-29] MEDS: IMMUNE GLOBULIN 10% 20 GM in IV 1 EA IV SCH (16:18)
[2023-07-29] MEDS ORDERED: SODIUM CHLORIDE 0.9% INJ 10 ML SYR IV PRN (16:35)
[2023-07-29] MEDS: IMMUNE GLOBULIN 10% 5 GM in IV 1 EA IV SCH (19:05)
[2023-07-29] MEDS: REMDESIVIR 100 MG in NS 250 ML IV SCH (22:14)
[2023-07-30] VITALS (7 sets, daily range): BP systolic 95–162; BP diastolic 53–74; TEMP 97.8–101.8; O2SAT 94–95
[2023-07-30 06:35] LABS: MAGNESIUM LEVEL 1.7 MG/DL (1.8-2.4); POTASSIUM SERUM 3.7 MMOL/L (3.5-5.1)
[2023-07-30 09:05] LABS: VANCOMYCIN LEVEL TROUGH 12.5 UG/ML (10.0-20.0)
[2023-07-30 09:06] LABS: BLOOD UREA NITROGEN 18 MG/DL (9-23); CALCIUM LEVEL 7.6 MG/DL (8.3-10.6); CARBON DIOXIDE LEVEL 30 MMOL/L (20-31); CHLORIDE LEVEL 103 MMOL/L (98-107); CREATININE FOR GFR 0.72 MG/DL (0.70-1.30); GLOMERULAR FILTRATION RATE > 60.0 (>42); GLUCOSE, FASTING 107 MG/DL (74-106); POTASSIUM SERUM 3.8 MMOL/L (3.5-5.1); SODIUM LEVEL 135 MMOL/L (136-145)
[2023-07-30] MEDS: SODIUM CHLORIDE 0.9% INJ 10 ML SYR IV SCH (11:18)
[2023-07-30] MEDS: ACETAMINOPHEN TAB 650MG DOSE (2X325MG) PO PRN (12:57)
[2023-07-30 14:37] LABS: ALBUMIN 1.9 G/DL (3.2-5.2); ALKALINE PHOSPHATASE 195 U/L (46-116); ALT/SGPT 43 U/L (7.0-40); AST/SGOT 30 U/L (<34); BILIRUBIN,DIRECT 0.2 MG/DL (<0.4); BILIRUBIN,TOTAL 0.3 MG/DL (0.3-1.2)
[2023-07-30 16:34] LABS: PROCALCITONIN 5.46 ng/ml
[2023-07-30] MEDS: MAG SULF 1GM/100ML (MAG RUN) 1 GM in IV 1 EA IV ONE (20:20)
[2023-07-31] VITALS (16 sets, daily range): BP systolic 102–128; BP diastolic 57–67; TEMP 97.5–98.6; O2SAT 93–100
[2023-07-31 05:28] LABS: HEMATOCRIT 22.8 % (42.0-52.0); HEMOGLOBIN 7.2 g/dl (13.5-17.5); MEAN CORPUSCULAR HEMOGLOBIN 31.3 pg (27.0-33.0); MEAN CORPUSCULAR HGB CONC 31.6 g/dl (32.0-36.5); MEAN CORPUSCULAR VOLUME 99.1 fl (80.0-96.0); WHITE BLOOD COUNT 2.8 10^3/uL (4.0-10.0)
[2023-07-31 05:31] LABS: PLATELET COUNT, AUTOMATED 45 10^3/uL (150-450)
[2023-07-31 05:50] LABS: ALBUMIN 1.7 G/DL (3.2-5.2); ALKALINE PHOSPHATASE 176 U/L (46-116); ALT/SGPT 36 U/L (7.0-40); AST/SGOT 24 U/L (<34); BILIRUBIN,TOTAL 0.2 MG/DL (0.3-1.2); BLOOD UREA NITROGEN 17 MG/DL (9-23); CALCIUM LEVEL 7.4 MG/DL (8.3-10.6); CARBON DIOXIDE LEVEL 30 MMOL/L (20-31); CHLORIDE LEVEL 105 MMOL/L (98-107); CREATININE FOR GFR 0.75 MG/DL (0.70-1.30); GLOMERULAR FILTRATION RATE > 60.0 (>42); GLUCOSE, FASTING 88 MG/DL (74-106); POTASSIUM SERUM 3.6 MMOL/L (3.5-5.1); SODIUM LEVEL 137 MMOL/L (136-145); TOTAL PROTEIN 4.3 G/DL (5.7-8.2)
[2023-07-31] MEDS: CEFEPIME HCL 2 GM in D5W MINI-BAG PLUS 50 ML IV SCH (22:04)
[2023-08-01 03:19] VITALS: BP 114/55; TEMP 98; O2SAT 95
[2023-08-01 05:49] LABS: BASO % 0.4 % (0.0-1.0); EOS # 0.1 10^3/uL (0.0-0.5); EOS % 1.9 % (0.0-3.0); HEMATOCRIT 24.8 % (42.0-52.0); HEMOGLOBIN 7.9 g/dl (13.5-17.5); LYMPH # 0.1 10^3/uL (1.5-5.0); LYMPH % 3.7 % (24.0-44.0); MEAN CORPUSCULAR HEMOGLOBIN 31.5 pg (27.0-33.0); MEAN CORPUSCULAR HGB CONC 31.9 g/dl (32.0-36.5); MEAN CORPUSCULAR VOLUME 98.8 fl (80.0-96.0); MONO # 0.2 10^3/uL (0.0-0.8); MONO % 8.6 % (2.0-8.0); NEUTROPHILS # 2.3 10^3/uL (1.5-8.5); NEUTROPHILS % 83.9 % (36.0-66.0); RED BLOOD COUNT 2.51 10^6/uL (4.30-6.10); WHITE BLOOD COUNT 2.7 10^3/uL (4.0-10.0)
[2023-08-01 05:52] LABS: PLATELET COUNT, AUTOMATED 43 10^3/uL (150-450)
[2023-08-01 05:57] LABS: ALBUMIN 1.8 G/DL (3.2-5.2); ALKALINE PHOSPHATASE 178 U/L (46-116); ALT/SGPT 32 U/L (7.0-40); AST/SGOT 24 U/L (<34); BILIRUBIN,TOTAL 0.3 MG/DL (0.3-1.2); BLOOD UREA NITROGEN 17 MG/DL (9-23); CALCIUM LEVEL 7.5 MG/DL (8.3-10.6); CARBON DIOXIDE LEVEL 28 MMOL/L (20-31); CHLORIDE LEVEL 104 MMOL/L (98-107); CREATININE FOR GFR 0.78 MG/DL (0.70-1.30); GLOMERULAR FILTRATION RATE > 60.0 (>42); GLUCOSE, FASTING 86 MG/DL (74-106); POTASSIUM SERUM 3.8 MMOL/L (3.5-5.1); SODIUM LEVEL 136 MMOL/L (136-145)
[2023-08-01 08:01] VITALS: BP 143/69; TEMP 97.9; O2SAT 95
[2023-08-01 12:04] VITALS: BP 121/68; TEMP 98; O2SAT 95
[2023-08-01 15:54] VITALS: BP 120/70; TEMP 98.9; O2SAT 96
[2023-08-01 19:31] VITALS: BP 121/59; TEMP 98.6; O2SAT 93
[2023-08-01 23:39] VITALS: BP 135/66; TEMP 98.6; O2SAT 93
[2023-08-02] VITALS (13 sets, daily range): BP systolic 115–137; BP diastolic 58–71; TEMP 97.9–98.9; O2SAT 93–97
[2023-08-02 05:00] LABS: HEMATOCRIT 22.7 % (42.0-52.0); HEMOGLOBIN 7.4 g/dl (13.5-17.5); MEAN CORPUSCULAR HEMOGLOBIN 31.9 pg (27.0-33.0); MEAN CORPUSCULAR HGB CONC 32.6 g/dl (32.0-36.5); MEAN CORPUSCULAR VOLUME 97.8 fl (80.0-96.0); RED BLOOD COUNT 2.32 10^6/uL (4.30-6.10); WHITE BLOOD COUNT 2.7 10^3/uL (4.0-10.0)
[2023-08-02 05:05] LABS: PLATELET COUNT, AUTOMATED 43 10^3/uL (150-450)
[2023-08-02 05:23] LABS: ALBUMIN 1.8 G/DL (3.2-5.2); ALKALINE PHOSPHATASE 155 U/L (46-116); ALT/SGPT 27 U/L (7.0-40); AST/SGOT 20 U/L (<34); BILIRUBIN,TOTAL 0.2 MG/DL (0.3-1.2); BLOOD UREA NITROGEN 18 MG/DL (9-23); CALCIUM LEVEL 7.4 MG/DL (8.3-10.6); CARBON DIOXIDE LEVEL 28 MMOL/L (20-31); CHLORIDE LEVEL 104 MMOL/L (98-107); CREATININE FOR GFR 0.71 MG/DL (0.70-1.30); GLOMERULAR FILTRATION RATE > 60.0 (>42); GLUCOSE, FASTING 91 MG/DL (74-106); POTASSIUM SERUM 3.6 MMOL/L (3.5-5.1); SODIUM LEVEL 136 MMOL/L (136-145); TOTAL PROTEIN 4.7 G/DL (5.7-8.2)
[2023-08-02] MEDS: NIRMATRELVIR/RITONAVIR CO-PACK (EMERGENCY USE AUTH) PO SCH (11:39)
[2023-08-02] MEDS: IMMUNE GLOBULIN 10% 5 GM in IV 1 EA IV SCH (19:00)
[2023-08-03 03:06] VITALS: BP 113/57; TEMP 98.4; O2SAT 93
[2023-08-03 03:52] LABS: HEMATOCRIT 23.4 % (42.0-52.0); HEMOGLOBIN 7.4 g/dl (13.5-17.5); MEAN CORPUSCULAR HEMOGLOBIN 31.4 pg (27.0-33.0); MEAN CORPUSCULAR HGB CONC 31.6 g/dl (32.0-36.5); MEAN CORPUSCULAR VOLUME 99.2 fl (80.0-96.0); RED BLOOD COUNT 2.36 10^6/uL (4.30-6.10)
[2023-08-03 04:02] LABS: PLATELET COUNT, AUTOMATED 47 10^3/uL (150-450)
[2023-08-03 04:21] LABS: ALBUMIN 1.8 G/DL (3.2-5.2); ALKALINE PHOSPHATASE 144 U/L (46-116); ALT/SGPT 26 U/L (7.0-40); AST/SGOT 19 U/L (<34); BILIRUBIN,TOTAL 0.4 MG/DL (0.3-1.2); BLOOD UREA NITROGEN 17 MG/DL (9-23); CALCIUM LEVEL 7.7 MG/DL (8.3-10.6); CARBON DIOXIDE LEVEL 29 MMOL/L (20-31); CHLORIDE LEVEL 106 MMOL/L (98-107); GLOMERULAR FILTRATION RATE > 60.0 (>42); GLUCOSE, FASTING 86 MG/DL (74-106); POTASSIUM SERUM 3.6 MMOL/L (3.5-5.1); SODIUM LEVEL 137 MMOL/L (136-145); TOTAL PROTEIN 5.1 G/DL (5.7-8.2)
[2023-08-03 07:50] VITALS: BP 122/58; TEMP 98.6; O2SAT 96
[2023-08-03] MEDS ORDERED: THROMBIN 5,000 UNITS VIAL As Ordered ONE (09:57)
[2023-08-03] MEDS ORDERED: CETACAINE SPRAY 5GM As Ordered ONE (09:57)
[2023-08-03] MEDS ORDERED: EPINEPHrine 1MG/10ML SYRINGE 1.5IN As Ordered ONE (09:57)
[2023-08-03] MEDS ORDERED: ROCURONIUM BROMIDE 50MG/5ML VIAL As Ordered ONE (10:52)
[2023-08-03] MEDS ORDERED: LIDOCAINE 2% 100MG/5ML SDV (FOR ANES.) As Ordered ONE (10:52)
[2023-08-03] MEDS ORDERED: SUCCINYLCHOLINE 100MG/5ML SYRINGE As Ordered ONE (10:52)
[2023-08-03] MEDS ORDERED: propofoL 200 MG/20 ML VIAL As Ordered ONE (10:52)
[2023-08-03] MEDS ORDERED: ONDANSETRON 4MG 2ML VIAL As Ordered ONE (10:53)
[2023-08-03] MEDS ORDERED: fentaNYL 100 MCG/2 ML INJECTION As Ordered ONE (10:53)
[2023-08-03 12:08] VITALS: BP 139/74; TEMP 98.4; O2SAT 97
[2023-08-03 16:00] VITALS: BP 128/62; TEMP 98.2; O2SAT 97
[2023-08-03 20:25] VITALS: BP 109/56; TEMP 98.3; O2SAT 94
[2023-08-04] VITALS (7 sets, daily range): BP systolic 110–157; BP diastolic 60–75; TEMP 98.1–98.8; O2SAT 92–96
[2023-08-04 05:30] LABS: HEMATOCRIT 23.7 % (42.0-52.0); HEMOGLOBIN 7.4 g/dl (13.5-17.5); MEAN CORPUSCULAR HEMOGLOBIN 30.7 pg (27.0-33.0); MEAN CORPUSCULAR HGB CONC 31.2 g/dl (32.0-36.5); MEAN CORPUSCULAR VOLUME 98.3 fl (80.0-96.0); RED BLOOD COUNT 2.41 10^6/uL (4.30-6.10); WHITE BLOOD COUNT 2.9 10^3/uL (4.0-10.0)
[2023-08-04 05:33] LABS: PLATELET COUNT, AUTOMATED 51 10^3/uL (150-450)
[2023-08-04 05:39] LABS: INR 1.05; PROTHROMBIN TIME 13.4 SECONDS (12.5-14.5)
[2023-08-04 05:42] LABS: ALBUMIN 1.8 G/DL (3.2-5.2); ALKALINE PHOSPHATASE 141 U/L (46-116); ALT/SGPT 23 U/L (7.0-40); AST/SGOT 18 U/L (<34); BILIRUBIN,TOTAL 0.4 MG/DL (0.3-1.2); BLOOD UREA NITROGEN 17 MG/DL (9-23); CALCIUM LEVEL 7.8 MG/DL (8.3-10.6); CARBON DIOXIDE LEVEL 30 MMOL/L (20-31); CHLORIDE LEVEL 105 MMOL/L (98-107); CREATININE FOR GFR 0.82 MG/DL (0.70-1.30); GLOMERULAR FILTRATION RATE > 60.0 (>42); GLUCOSE, FASTING 83 MG/DL (74-106); POTASSIUM SERUM 3.8 MMOL/L (3.5-5.1); SODIUM LEVEL 136 MMOL/L (136-145)
[2023-08-04] MEDS ORDERED: SUGAMMADEX SODIUM 500 MG/5 ML VIAL (BRIDION) As Ordered ONE (10:19)
[2023-08-04] MEDS ORDERED: MIDAZOLAM INJ 2MG/2ML VIAL As Ordered ONE (10:24)
[2023-08-04] MEDS ORDERED: fentaNYL 100 MCG/2 ML INJECTION IV PRN (13:15)
[2023-08-04] MEDS ORDERED: ONDANSETRON 4MG 2ML VIAL IV PRN (13:15)
[2023-08-04] MEDS ORDERED: oxyCODONE 5MG TAB PO PRN (13:15)
[2023-08-04] MEDS ORDERED: LR 1,000 ML IV SCH (13:15)
[2023-08-04] MEDS: CEFEPIME HCL 2 GM in D5W MINI-BAG PLUS 50 ML IV SCH (17:41)
[2023-08-05 01:00] VITALS: BP 130/68; TEMP 98.4; O2SAT 94
[2023-08-05 03:50] VITALS: BP 126/76; TEMP 98.2; O2SAT 92
[2023-08-05 07:16] LABS: HEMATOCRIT 25.9 % (42.0-52.0); HEMOGLOBIN 8.2 g/dl (13.5-17.5); LYMPH # 0.1 10^3/uL (1.5-5.0); LYMPH % 2.9 % (24.0-44.0); MEAN CORPUSCULAR HEMOGLOBIN 31.1 pg (27.0-33.0); MEAN CORPUSCULAR HGB CONC 31.7 g/dl (32.0-36.5); MEAN CORPUSCULAR VOLUME 98.1 fl (80.0-96.0); MONO # 0.2 10^3/uL (0.0-0.8); MONO % 5.1 % (2.0-8.0); NEUTROPHILS # 2.9 10^3/uL (1.5-8.5); NEUTROPHILS % 91.4 % (36.0-66.0); RED BLOOD COUNT 2.64 10^6/uL (4.30-6.10); WHITE BLOOD COUNT 3.1 10^3/uL (4.0-10.0)
[2023-08-05 07:26] LABS: PLATELET COUNT, AUTOMATED 55 10^3/uL (150-450)
[2023-08-05 07:36] VITALS: BP 129/72; TEMP 98.2; O2SAT 93
[2023-08-05 09:29] LABS: BLOOD UREA NITROGEN 18 MG/DL (9-23); CALCIUM LEVEL 8.1 MG/DL (8.3-10.6); CARBON DIOXIDE LEVEL 26 MMOL/L (20-31); CHLORIDE LEVEL 102 MMOL/L (98-107); CREATININE FOR GFR 0.76 MG/DL (0.70-1.30); GLOMERULAR FILTRATION RATE > 60.0 (>42); GLUCOSE, FASTING 155 MG/DL (74-106); MAGNESIUM LEVEL 1.8 MG/DL (1.8-2.4); POTASSIUM SERUM 4.2 MMOL/L (3.5-5.1); SODIUM LEVEL 135 MMOL/L (136-145)
== END 2023-08-05 16:33 | disposition home or self-care (01) | DRG 871 ==
LOC: M PCU 11:03 → OBSVTOIN 11:04
PROVIDERS: ADMIT Internal Medicine; ATTEND Internal Medicine
PROC: 0BJ08ZZ Inspection of Tracheobronchial Tree, Via Natural or Artificial Opening Endoscopic (ICD-10-PCS; principal; 2023-08-04 12:00)
DX: A41.9 Sepsis, unspecified organism (principal); J12.82 Pneumonia due to coronavirus disease 2019; U07.1 COVID-19; D61.810 Antineoplastic chemotherapy induced pancytopenia; C82.90 Follicular lymphoma, unspecified, unspecified site; D80.1 Nonfamilial hypogammaglobulinemia; D69.6 Thrombocytopenia, unspecified; Z95.2 Presence of prosthetic heart valve; Z96.642 Presence of left artificial hip joint; Z88.0 Allergy status to penicillin; Z88.8 Allergy status to other drugs, medicaments and biological substances; Z79.899 Other long term (current) drug therapy

== ENCOUNTER → 2023-07-28 | Outpatient (CLI) | payer MEDICARE ==
[~2023-07-28] VITALS: Ht 165.1 cm; Wt 69.0 kg
[~2023-07-28] MED LIST changes: +BACT400T PO; +CEFP100T PO; +CEFP200T PO; +DEXA4TA PO; +DEXA6TAB PO; +GUAI400T9 PO; +IRON65TA2 PO; -OXYB5TAB11 PO; +OXYB5TAB14 PO; +SULF400T14 PO
[2023-07-28 09:56] VITALS: BP 118/72; O2SAT 91
== END ==
LOC: M PAL 10:06
PROVIDERS: ATTEND Nurse Practitioner Adult Health
DX: M54.50 Low back pain, unspecified (principal); R05.9 Cough, unspecified; R53.83 Other fatigue; Z86.16 Personal history of COVID-19; C82.23 Follicular lymphoma grade III, unspecified, intra-abdominal lymph nodes; Z51.5 Encounter for palliative care; Z79.891 Long term (current) use of opiate analgesic; Z79.899 Other long term (current) drug therapy; Z82.41 Family history of sudden cardiac death; Z87.891 Personal history of nicotine dependence; Z88.0 Allergy status to penicillin; Z88.1 Allergy status to other antibiotic agents; Z92.21 Personal history of antineoplastic chemotherapy; Z92.3 Personal history of irradiation; Z96.642 Presence of left artificial hip joint; Z93.6 Other artificial openings of urinary tract status

== ENCOUNTER → 2023-08-11 | Outpatient (REF) | payer MEDICARE ==
[~2023-08-11] MED LIST changes: +BACT400T PO; -ENOXAPARIN 40MG/0.4ML SYRINGE (J1650 PER 10MG) SC SCH; -LIDO15SO PO; +LIDO15SO8 PO
[2023-08-11 13:20] LABS: BASO % 0.2 % (0.0-1.0); EOS # 0.1 10^3/uL (0.0-0.5); HEMOGLOBIN 8.7 g/dl (13.5-17.5); LYMPH # 0.1 10^3/uL (1.5-5.0); LYMPH % 2.8 % (24.0-44.0); MEAN CORPUSCULAR HEMOGLOBIN 33.5 pg (27.0-33.0); MEAN CORPUSCULAR HGB CONC 31.1 g/dl (32.0-36.5); MEAN CORPUSCULAR VOLUME 107.7 fl (80.0-96.0); MONO # 0.5 10^3/uL (0.0-0.8); NEUTROPHILS # 4.3 10^3/uL (1.5-8.5); NEUTROPHILS % 84.8 % (36.0-66.0)
[2023-08-11 13:26] LABS: PLATELET COUNT, AUTOMATED 56 10^3/uL (150-450)
[2023-08-11 13:48] LABS: ALBUMIN 2.7 G/DL (3.2-5.2); ALKALINE PHOSPHATASE 118 U/L (46-116); ALT/SGPT 22 U/L (7.0-40); AST/SGOT 22 U/L (<34); BILIRUBIN,TOTAL 0.4 MG/DL (0.3-1.2); BLOOD UREA NITROGEN 21 MG/DL (9-23); CALCIUM LEVEL 8.7 MG/DL (8.3-10.6); CARBON DIOXIDE LEVEL 31 MMOL/L (20-31); CHLORIDE LEVEL 100 MMOL/L (98-107); CREATININE FOR GFR 0.73 MG/DL (0.70-1.30); GLOMERULAR FILTRATION RATE > 60.0 (>42); GLUCOSE, FASTING 74 MG/DL (74-106); SODIUM LEVEL 134 MMOL/L (136-145); TOTAL PROTEIN 5.9 G/DL (5.7-8.2)
== END ==
LOC: M SFHCADAM 09:47
PROVIDERS: ATTEND Family Medicine
DX: R60.0 Localized edema (principal); R53.83 Other fatigue; R06.02 Shortness of breath

== ENCOUNTER 2023-08-17 10:58 | Inpatient (IN) | payer MEDICARE ==
[~2023-08-17] VITALS: Ht 165.1 cm; Wt 70.0 kg
[2023-08-17] MEDS: SODIUM CHLORIDE 0.9% INJ 10 ML SYR IV SCH (09:00)
[2023-08-17 11:26] LABS: BASO % 0.4 % (0.0-1.0); EOS # 0.1 10^3/uL (0.0-0.5); EOS % 1.3 % (0.0-3.0); HEMATOCRIT 23.7 % (42.0-52.0); HEMOGLOBIN 7.6 g/dl (13.5-17.5); LYMPH # 0.1 10^3/uL (1.5-5.0); LYMPH % 1.7 % (24.0-44.0); MEAN CORPUSCULAR HEMOGLOBIN 34.4 pg (27.0-33.0); MEAN CORPUSCULAR HGB CONC 32.1 g/dl (32.0-36.5); MEAN CORPUSCULAR VOLUME 107.2 fl (80.0-96.0); MONO # 0.5 10^3/uL (0.0-0.8); MONO % 10.7 % (2.0-8.0); NEUTROPHILS % 85.5 % (36.0-66.0); RED BLOOD COUNT 2.21 10^6/uL (4.30-6.10); WHITE BLOOD COUNT 4.7 10^3/uL (4.0-10.0)
[2023-08-17 11:29] LABS: PLATELET COUNT, AUTOMATED 40 10^3/uL (150-450)
[2023-08-17 11:30] VITALS: BP 93/56; TEMP 101.7; O2SAT 94
[2023-08-17 11:38] LABS: ERYTHROCYTE SEDIMENTATION RATE 41 mm/hr (0-20)
[2023-08-17] MEDS ORDERED: ISOVUE-370 76% 100ML VIAL As Ordered ONE (12:13)
[2023-08-17] MEDS ORDERED: ACETAMINOPHEN TAB 650MG DOSE (2X325MG) PO PRN (12:45)
[2023-08-17] MEDS ORDERED: VANCOMYCIN HCL 1,050 MG in IV FLUID PLACE HOLDER 1 EA IV SCH (12:45)
[2023-08-17 13:05] LABS: CK-MB VALUE MASS < 1.0 NG/ML (<3.6)
[2023-08-17 13:08] LABS: ALBUMIN 2.3 G/DL (3.2-5.2); ALKALINE PHOSPHATASE 117 U/L (46-116); ALT/SGPT 15 U/L (7.0-40); AST/SGOT 20 U/L (<34); BILIRUBIN,TOTAL 0.6 MG/DL (0.3-1.2); BLOOD UREA NITROGEN 17 MG/DL (9-23); CALCIUM LEVEL 7.9 MG/DL (8.3-10.6); CARBON DIOXIDE LEVEL 25 MMOL/L (20-31); CHLORIDE LEVEL 101 MMOL/L (98-107); CPK CREATINE PHOSPHOKINASE 33 U/L (46-171); CREATININE FOR GFR 0.79 MG/DL (0.70-1.30); GLOMERULAR FILTRATION RATE > 60.0 (>42); GLUCOSE, FASTING 104 MG/DL (74-106); MB/CK RELATIVE INDEX 3.03 (< OR =4); POTASSIUM SERUM 3.6 MMOL/L (3.5-5.1); SODIUM LEVEL 133 MMOL/L (136-145); TOTAL PROTEIN 5.1 G/DL (5.7-8.2)
[2023-08-17 13:14] LABS: PROCALCITONIN 0.73 ng/ml
[2023-08-17] MEDS: CEFEPIME HCL 2 GM in D5W MINI-BAG PLUS 50 ML IV SCH (13:21)
[2023-08-17] MEDS: LR 1,000 ML IV SCH ×2 (13:26→17:45)
[2023-08-17] MEDS: AZITHROMYCIN 250MG TABLET PO SCH (13:26)
[2023-08-17 14:00] VITALS: BP 94/54; TEMP 98.4; O2SAT 96
[2023-08-17] MEDS ORDERED: CEFEPIME HCL 1 GM in D5W MINI-BAG PLUS 50 ML IV SCH (14:00)
[2023-08-17] MEDS: VANCOMYCIN HCL 1,000 MG, VIAL MATE ADAPTER 1 EACH in D5W 250 ML IV ONE (16:32)
[2023-08-17 19:23] VITALS: BP 99/56; TEMP 99.2; O2SAT 100
[2023-08-17] MEDS ORDERED: VANCOMYCIN HCL 1,000 MG, VIAL MATE ADAPTER 1 EACH in D5W 250 ML IV SCH (20:00)
[2023-08-18] VITALS (8 sets, daily range): BP systolic 117–138; BP diastolic 64–78; TEMP 98.1–99.9; O2SAT 93–96
[2023-08-18 06:23] LABS: BASO % 0.9 % (0.0-1.0); EOS # 0.1 10^3/uL (0.0-0.5); EOS % 1.8 % (0.0-3.0); HEMATOCRIT 22.9 % (42.0-52.0); HEMOGLOBIN 7.1 g/dl (13.5-17.5); LYMPH # 0.2 10^3/uL (1.5-5.0); LYMPH % 3.4 % (24.0-44.0); MEAN CORPUSCULAR HEMOGLOBIN 33.5 pg (27.0-33.0); MONO # 0.6 10^3/uL (0.0-0.8); MONO % 14.5 % (2.0-8.0); NEUTROPHILS # 3.4 10^3/uL (1.5-8.5); NEUTROPHILS % 79.2 % (36.0-66.0); RED BLOOD COUNT 2.12 10^6/uL (4.30-6.10); WHITE BLOOD COUNT 4.4 10^3/uL (4.0-10.0)
[2023-08-18 06:26] LABS: PLATELET COUNT, AUTOMATED 37 10^3/uL (150-450)
[2023-08-18 06:47] LABS: BLOOD UREA NITROGEN 14 MG/DL (9-23); CALCIUM LEVEL 7.7 MG/DL (8.3-10.6); CARBON DIOXIDE LEVEL 29 MMOL/L (20-31); CHLORIDE LEVEL 107 MMOL/L (98-107); CREATININE FOR GFR 0.77 MG/DL (0.70-1.30); GLOMERULAR FILTRATION RATE > 60.0 (>42); GLUCOSE, FASTING 116 MG/DL (74-106); POTASSIUM SERUM 3.5 MMOL/L (3.5-5.1); SODIUM LEVEL 139 MMOL/L (136-145)
[2023-08-18] MEDS ORDERED: MIDODRINE 5 MG TAB PO SCH (08:00)
[2023-08-18] MEDS ORDERED: IMMUNE GLOBULIN IV SCH (14:30)
[2023-08-18 20:49] LABS: HEMATOCRIT 26.7 % (42.0-52.0); HEMOGLOBIN 8.5 g/dl (13.5-17.5); MEAN CORPUSCULAR HEMOGLOBIN 32.6 pg (27.0-33.0); MEAN CORPUSCULAR HGB CONC 31.8 g/dl (32.0-36.5); MEAN CORPUSCULAR VOLUME 102.3 fl (80.0-96.0); RED BLOOD COUNT 2.61 10^6/uL (4.30-6.10); WHITE BLOOD COUNT 3.9 10^3/uL (4.0-10.0)
[2023-08-18 20:56] LABS: PLATELET COUNT, AUTOMATED 39 10^3/uL (150-450)
[2023-08-18] MEDS: SODIUM CHLORIDE 0.9% INJ 10 ML SYR IV PRN (22:19)
[2023-08-19 01:38] VITALS: TEMP 99.6
[2023-08-19 05:04] VITALS: BP 139/79; TEMP 98.9; O2SAT 94
[2023-08-19] MEDS ORDERED: LevoFLOXacin 750 MG TABLET PO SCH (06:00)
[2023-08-19 06:31] LABS: BASO % 1.1 % (0.0-1.0); EOS # 0.1 10^3/uL (0.0-0.5); EOS % 3.3 % (0.0-3.0); HEMATOCRIT 26.2 % (42.0-52.0); HEMOGLOBIN 8.4 g/dl (13.5-17.5); LYMPH # 0.1 10^3/uL (1.5-5.0); MEAN CORPUSCULAR HEMOGLOBIN 32.8 pg (27.0-33.0); MEAN CORPUSCULAR HGB CONC 32.1 g/dl (32.0-36.5); MEAN CORPUSCULAR VOLUME 102.3 fl (80.0-96.0); MONO # 0.4 10^3/uL (0.0-0.8); MONO % 16.2 % (2.0-8.0); PLATELET COUNT, AUTOMATED 34 10^3/uL (150-450); RED BLOOD COUNT 2.56 10^6/uL (4.30-6.10); WHITE BLOOD COUNT 2.7 10^3/uL (4.0-10.0)
[2023-08-19 06:59] LABS: BLOOD UREA NITROGEN 14 MG/DL (9-23); CALCIUM LEVEL 7.6 MG/DL (8.3-10.6); CARBON DIOXIDE LEVEL 28 MMOL/L (20-31); CHLORIDE LEVEL 104 MMOL/L (98-107); GLOMERULAR FILTRATION RATE > 60.0 (>42); GLUCOSE, FASTING 97 MG/DL (74-106); POTASSIUM SERUM 3.5 MMOL/L (3.5-5.1); SODIUM LEVEL 138 MMOL/L (136-145)
[2023-08-19] MEDS: AZITHROMYCIN 250MG TABLET PO SCH (09:11)
[2023-08-19] MEDS ORDERED: B COCAP4 PO (09:21)
[2023-08-19] MEDS ORDERED: HOME MED LIST COMPLETE! XX SCH (09:25)
[2023-08-19] MEDS ORDERED: propofoL 200 MG/20 ML VIAL As Ordered ONE (13:07)
[2023-08-19] MEDS ORDERED: LIDOCAINE 2% 100MG/5ML SDV (FOR ANES.) As Ordered ONE (13:07)
[2023-08-19] MEDS ORDERED: ONDANSETRON 4MG 2ML VIAL As Ordered ONE (13:07)
[2023-08-19] MEDS ORDERED: MIDAZOLAM INJ 2MG/2ML VIAL As Ordered ONE (14:17)
[2023-08-19] MEDS ORDERED: fentaNYL 100 MCG/2 ML INJECTION As Ordered ONE (14:17)
[2023-08-19] MEDS ORDERED: ACETAMINOPHEN 1000MG 100ML IV BAG As Ordered ONE (14:31)
[2023-08-19 15:25] VITALS: BP 131/71; TEMP 97.7; O2SAT 94
[2023-08-19 19:38] VITALS: BP 124/71; TEMP 98.2; O2SAT 95
[2023-08-19] MEDS: RAMELTEON 8 MG TAB (ROZEREM) PO SCH (19:41)
[2023-08-20 05:02] VITALS: BP 139/77; TEMP 97.7; O2SAT 96
[2023-08-20 06:20] LABS: BASO % 0.4 % (0.0-1.0); HEMATOCRIT 30.8 % (42.0-52.0); HEMOGLOBIN 9.5 g/dl (13.5-17.5); LYMPH # 0.1 10^3/uL (1.5-5.0); LYMPH % 5.3 % (24.0-44.0); MEAN CORPUSCULAR HEMOGLOBIN 32.5 pg (27.0-33.0); MEAN CORPUSCULAR HGB CONC 30.8 g/dl (32.0-36.5); MEAN CORPUSCULAR VOLUME 105.5 fl (80.0-96.0); MONO # 0.3 10^3/uL (0.0-0.8); MONO % 11.1 % (2.0-8.0); NEUTROPHILS # 1.9 10^3/uL (1.5-8.5); NEUTROPHILS % 83.2 % (36.0-66.0); RED BLOOD COUNT 2.92 10^6/uL (4.30-6.10); WHITE BLOOD COUNT 2.3 10^3/uL (4.0-10.0)
[2023-08-20 06:23] LABS: PLATELET COUNT, AUTOMATED 40 10^3/uL (150-450)
[2023-08-20 06:47] LABS: BLOOD UREA NITROGEN 15 MG/DL (9-23); CALCIUM LEVEL 8.6 MG/DL (8.3-10.6); CARBON DIOXIDE LEVEL 30 MMOL/L (20-31); CHLORIDE LEVEL 102 MMOL/L (98-107); CREATININE FOR GFR 0.72 MG/DL (0.70-1.30); GLOMERULAR FILTRATION RATE > 60.0 (>42); GLUCOSE, FASTING 138 MG/DL (74-106); SODIUM LEVEL 136 MMOL/L (136-145)
[2023-08-20] MEDS: cefTRIAXone SOD 2 GM in D5W MINI-BAG PLUS 50 ML IV SCH (12:19)
[2023-08-20 14:00] VITALS: BP 105/60; TEMP 98.1; O2SAT 98
[2023-08-20] MEDS: MOM 30ML SUSPENSION UDC PO PRN (20:04)
[2023-08-20 21:00] VITALS: BP 107/63; TEMP 98.1; O2SAT 94
[2023-08-21 05:00] VITALS: BP 115/68; TEMP 98.6; O2SAT 96
[2023-08-21 06:18] LABS: BASO % 0.9 % (0.0-1.0); EOS # 0.1 10^3/uL (0.0-0.5); EOS % 3.5 % (0.0-3.0); HEMATOCRIT 27.3 % (42.0-52.0); HEMOGLOBIN 8.6 g/dl (13.5-17.5); LYMPH # 0.2 10^3/uL (1.5-5.0); LYMPH % 4.7 % (24.0-44.0); MEAN CORPUSCULAR HEMOGLOBIN 33.2 pg (27.0-33.0); MEAN CORPUSCULAR HGB CONC 31.5 g/dl (32.0-36.5); MEAN CORPUSCULAR VOLUME 105.4 fl (80.0-96.0); MONO # 0.5 10^3/uL (0.0-0.8); MONO % 13.1 % (2.0-8.0); NEUTROPHILS # 2.7 10^3/uL (1.5-8.5); NEUTROPHILS % 77.5 % (36.0-66.0); RED BLOOD COUNT 2.59 10^6/uL (4.30-6.10); WHITE BLOOD COUNT 3.4 10^3/uL (4.0-10.0)
[2023-08-21 06:20] LABS: PLATELET COUNT, AUTOMATED 37 10^3/uL (150-450)
[2023-08-21 06:41] LABS: BLOOD UREA NITROGEN 21 MG/DL (9-23); CALCIUM LEVEL 8.4 MG/DL (8.3-10.6); CARBON DIOXIDE LEVEL 33 MMOL/L (20-31); CHLORIDE LEVEL 103 MMOL/L (98-107); CREATININE FOR GFR 0.67 MG/DL (0.70-1.30); GLOMERULAR FILTRATION RATE > 60.0 (>42); GLUCOSE, FASTING 81 MG/DL (74-106); SODIUM LEVEL 138 MMOL/L (136-145)
[2023-08-21] MEDS: MIRALAX *UNIT DOSE* 17GM PACKET PO PRN (08:42)
[2023-08-21] MEDS ORDERED: CEFD1CAP9 PO (11:20)
[2023-08-21] MEDS ORDERED: RAME8TAB2 PO (11:20)
[2023-08-21] MEDS ORDERED: AZIT-12 PO (11:20)
[2023-08-21] MEDS ORDERED: CVS1CAP2 PO (11:21)
[2023-08-21 14:00] VITALS: BP 109/91; TEMP 97.9; O2SAT 98
[2023-08-21 21:14] LABS: L. PNEUMOPHILA (1,3,4,5,6,8) <0.91 OD ratio (0.00-0.90)
== END 2023-08-21 16:43 | disposition home or self-care (01) | DRG 252 ==
LOC: M MSPAV 11:16
PROVIDERS: ADMIT General Practice; ATTEND Student in an Organized Health Care Education/Training Program
PROC: 30233N1 Transfusion of Nonautologous Red Blood Cells into Peripheral Vein, Percutaneous Approach (ICD-10-PCS; 2023-08-18)
PROC: 05PY03Z Removal of Infusion Device from Upper Vein, Open Approach (ICD-10-PCS; principal; 2023-08-19 14:00)
DX: T82.7XXA Infection and inflammatory reaction due to other cardiac and vascular devices, implants and grafts, initial encounter (principal); A41.51 Sepsis due to Escherichia coli [E. coli]; J12.82 Pneumonia due to coronavirus disease 2019; U07.1 COVID-19; J47.0 Bronchiectasis with acute lower respiratory infection; C82.90 Follicular lymphoma, unspecified, unspecified site; E87.20 Acidosis, unspecified; D80.1 Nonfamilial hypogammaglobulinemia; D69.6 Thrombocytopenia, unspecified; D64.81 Anemia due to antineoplastic chemotherapy; G47.00 Insomnia, unspecified; Z88.0 Allergy status to penicillin; Z88.8 Allergy status to other drugs, medicaments and biological substances; Z79.899 Other long term (current) drug therapy; Z86.718 Personal history of other venous thrombosis and embolism; Z95.2 Presence of prosthetic heart valve; Z96.642 Presence of left artificial hip joint; M81.0 Age-related osteoporosis without current pathological fracture; Y83.2 Surgical operation with anastomosis, bypass or graft as the cause of abnormal reaction of the patient, or of later complication, without mention of misadventure at the time of the procedure

== ENCOUNTER → 2023-08-26 | Outpatient (CLI) | payer MEDICARE ==
[~2023-08-26] VITALS: Ht 165.1 cm; Wt 69.9 kg
[~2023-08-26] MED LIST changes: +AZIT-12 PO; +B COCAP4 PO; +CVS1CAP2 PO; +RAME8TAB2 PO
[2023-08-26 11:00] VITALS: BP 142/77; O2SAT 97
== END ==
LOC: M PAL 10:12
PROVIDERS: ATTEND Nurse Practitioner Adult Health
DX: M54.50 Low back pain, unspecified (principal); R05.9 Cough, unspecified; R06.09 Other forms of dyspnea; C82.23 Follicular lymphoma grade III, unspecified, intra-abdominal lymph nodes; Z86.16 Personal history of COVID-19; Z51.5 Encounter for palliative care; Z79.620 Long term (current) use of immunosuppressive biologic; Z82.41 Family history of sudden cardiac death; Z87.891 Personal history of nicotine dependence; Z88.0 Allergy status to penicillin; Z88.1 Allergy status to other antibiotic agents; Z92.21 Personal history of antineoplastic chemotherapy; Z92.3 Personal history of irradiation; Z96.642 Presence of left artificial hip joint; Z93.6 Other artificial openings of urinary tract status

== ENCOUNTER → 2023-08-31 | Outpatient (CLI) | payer MEDICARE | LOC: M PLAIMG 12:12 | PROVIDERS: ATTEND Internal Medicine Critical Care Medicine | DX: J47.9 Bronchiectasis, uncomplicated (principal); R91.8 Other nonspecific abnormal finding of lung field ==

== ENCOUNTER → 2023-09-03 | Outpatient (REF) | payer MEDICARE | LOC: M SFHCPLAZ 12:31 | PROVIDERS: ATTEND Internal Medicine Infectious Disease | DX: U07.1 COVID-19 (principal) ==

== ENCOUNTER → 2023-09-07 | Outpatient (REF) | payer MEDICARE | LOC: M LAB REF 08:26 | PROVIDERS: ATTEND Internal Medicine Infectious Disease | DX: N64.4 Mastodynia (principal) ==

== ENCOUNTER → 2023-09-17 | Outpatient (REF) | payer MEDICARE | LOC: M SFHCPLAZ 09:51 | PROVIDERS: ATTEND Internal Medicine Infectious Disease | DX: U07.1 COVID-19 (principal) ==

== ENCOUNTER → 2023-09-18 | Outpatient (CLI) | payer MEDICARE | LOC: M PLAIMG 09:10 | PROVIDERS: ATTEND Nurse Practitioner | DX: C82.90 Follicular lymphoma, unspecified, unspecified site (principal) ==

== ENCOUNTER 2023-10-03 09:48 | Inpatient (IN) | payer MEDICARE ==
[2023-10-03] VITALS (7 sets, daily range): BP systolic 92–112; BP diastolic 51–66; TEMP 98.7–98.9; O2SAT 96–98
[~2023-10-03] VITALS: Ht 165.1 cm; Wt 74.5 kg
[~2023-10-03 09:48] MED LIST changes: +DOXY-323 PO; -DOXY-443 PO
[2023-10-03] MEDS ORDERED: METH-1165 PO (09:58)
[2023-10-03] MEDS ORDERED: IBUP-1114 PO (09:58)
[2023-10-03] MEDS ORDERED: VITA59DR PO (09:58)
[2023-10-03] MEDS: NS 500 ML IV ONE ×2 (10:30→11:10)
[2023-10-03 11:11] LABS: HEMATOCRIT 29.8 % (42.0-52.0); HEMOGLOBIN 9.5 g/dl (13.5-17.5); MEAN CORPUSCULAR HEMOGLOBIN 34.8 pg (27.0-33.0); MEAN CORPUSCULAR HGB CONC 31.9 g/dl (32.0-36.5); MEAN CORPUSCULAR VOLUME 109.2 fl (80.0-96.0); RED BLOOD COUNT 2.73 10^6/uL (4.30-6.10); WHITE BLOOD COUNT 3.4 10^3/uL (4.0-10.0)
[2023-10-03 11:13] LABS: PLATELET COUNT, AUTOMATED 27 10^3/uL (150-450)
[2023-10-03] MEDS ORDERED: ISOVUE-370 76% 100ML VIAL As Ordered ONE (11:21)
[2023-10-03 11:23] LABS: ANISOCYTOSIS 1+; ATYPICAL LYMPH 1 % (0-5); CK-MB VALUE MASS < 1.0 NG/ML (<3.6); EOSINOPHILS 1 % (0-3); LYMPHOCYTES 2 % (16-44); NEUTROPHILS 67 % (28-66); PLATELET ESTIMATE MARKED DECREASE (NORMAL); POIKILOCYTOSIS 1+; POLYCHROMASIA 1+; SCHISTOCYTES 1+
[2023-10-03 11:24] LABS: INR 0.99; PARTIAL THROMBOPLASTIN TIME 35.8 SECONDS (24.8-34.2); PROTHROMBIN TIME 12.8 SECONDS (12.5-14.5)
[2023-10-03] MEDS: NS 1,120 ML in IV 1 EA IV ONE (11:25)
[2023-10-03 11:26] LABS: FREE T4 1.34 NG/DL (0.89-1.76); THYROID STIMULATING HORMONE 1.947 uIU/ML (0.55-4.78)
[2023-10-03 11:30] LABS: LIPASE 19 U/L (12-53)
[2023-10-03 11:32] LABS: CPK CREATINE PHOSPHOKINASE 30 U/L (46-171); MB/CK RELATIVE INDEX 3.33 (< OR =4)
[2023-10-03 11:42] LABS: ALBUMIN 2.3 G/DL (3.2-5.2); ALKALINE PHOSPHATASE 129 U/L (46-116); ALT/SGPT 63 U/L (7.0-40); AST/SGOT 36 U/L (<34); BILIRUBIN,DIRECT 0.4 MG/DL (<0.4); BILIRUBIN,TOTAL 0.7 MG/DL (0.3-1.2); BLOOD UREA NITROGEN 43 MG/DL (9-23); CALCIUM LEVEL 7.8 MG/DL (8.3-10.6); CARBON DIOXIDE LEVEL 24 MMOL/L (20-31); CHLORIDE LEVEL 104 MMOL/L (98-107); CREATININE FOR GFR 1.24 MG/DL (0.70-1.30); GLOMERULAR FILTRATION RATE > 60.0 (>42); GLUCOSE, FASTING 124 MG/DL (74-106); POTASSIUM SERUM 3.6 MMOL/L (3.5-5.1); SODIUM LEVEL 138 MMOL/L (136-145); TOTAL PROTEIN 4.8 G/DL (5.7-8.2)
[2023-10-03] MEDS: PIPERACILLIN/TAZOBACTAM SOD 4.5 GM in D5W MINI-BAG PLUS 50 ML IV ONE (11:50)
[2023-10-03 13:00] LABS: CK-MB VALUE MASS < 1.0 NG/ML (<3.6)
[2023-10-03 13:02] LABS: CPK CREATINE PHOSPHOKINASE 32 U/L (46-171); MB/CK RELATIVE INDEX 3.12 (< OR =4)
[2023-10-03] MEDS ORDERED: EQL50TAB2 PO (14:26)
[2023-10-03] MEDS ORDERED: ACET-683 PO (14:26)
[2023-10-03] MEDS ORDERED: HOME MED LIST COMPLETE! XX SCH (14:30)
[2023-10-03] MEDS ORDERED: NOREPINEPHRINE 4MG IN D5 250ML 4 MG in IV 1 EA IV SCH (15:30)
[2023-10-03] MEDS ORDERED: PIPERACILLIN/TAZOBACTAM SOD 4.5 GM in D5W MINI-BAG PLUS 50 ML IV SCH (17:20)
[2023-10-03] MEDS ORDERED: VANCOMYCIN HCL 1,050 MG in IV FLUID PLACE HOLDER 1 EA IV SCH (17:20)
[2023-10-03] MEDS: PANTOPRAZOLE 40MG VIAL IV SCH (17:21)
[2023-10-03] MEDS: PIPERACILLIN/TAZOBACTAM SOD 4.5 GM in D5W MINI-BAG PLUS 50 ML IV SCH (17:21)
[2023-10-03 17:41] LABS: MAGNESIUM LEVEL 1.7 MG/DL (1.8-2.4); PHOSPHORUS LEVEL 1.7 MG/DL (2.4-5.1)
[2023-10-03] MEDS: LR 1,000 ML IV SCH (18:13)
[2023-10-03] MEDS: PERCOCET 5MG/325MG TAB PO PRN (20:00)
[2023-10-03] MEDS: MAG SULF 1GM/100ML (MAG RUN) 1 GM in IV 1 EA IV ONE (20:01)
[2023-10-03] MEDS: VANCOMYCIN HCL 1,000 MG, VIAL MATE ADAPTER 1 EACH in D5W 250 ML IV ONE (20:01)
[2023-10-03] MEDS: SODIUM PHOSPHATE INJ 30 MMOL in D5W 500 ML IV SCH (21:31)
[2023-10-04] VITALS (19 sets, daily range): BP systolic 93–120; BP diastolic 50–59; TEMP 98.6–99.1; O2SAT 95–97
[2023-10-04 04:55] LABS: HEMATOCRIT 26.6 % (42.0-52.0); HEMOGLOBIN 8.8 g/dl (13.5-17.5); MEAN CORPUSCULAR HEMOGLOBIN 35.1 pg (27.0-33.0); MEAN CORPUSCULAR HGB CONC 33.1 g/dl (32.0-36.5); RED BLOOD COUNT 2.51 10^6/uL (4.30-6.10); WHITE BLOOD COUNT 4.5 10^3/uL (4.0-10.0)
[2023-10-04 04:57] LABS: PLATELET COUNT, AUTOMATED 20 10^3/uL (150-450)
[2023-10-04 05:19] LABS: ALBUMIN 1.9 G/DL (3.2-5.2); ALKALINE PHOSPHATASE 109 U/L (46-116); ALT/SGPT 43 U/L (7.0-40); AST/SGOT 22 U/L (<34); BILIRUBIN,TOTAL 0.5 MG/DL (0.3-1.2); BLOOD UREA NITROGEN 37 MG/DL (9-23); CALCIUM LEVEL 6.9 MG/DL (8.3-10.6); CARBON DIOXIDE LEVEL 22 MMOL/L (20-31); CHLORIDE LEVEL 104 MMOL/L (98-107); CPK CREATINE PHOSPHOKINASE 64 U/L (46-171); GLOMERULAR FILTRATION RATE > 60.0 (>42); GLUCOSE, FASTING 123 MG/DL (74-106); MAGNESIUM LEVEL 1.9 MG/DL (1.8-2.4); PHOSPHORUS LEVEL 5.4 MG/DL (2.4-5.1); POTASSIUM SERUM 3.3 MMOL/L (3.5-5.1); SODIUM LEVEL 138 MMOL/L (136-145); TOTAL PROTEIN 4.1 G/DL (5.7-8.2)
[2023-10-04 05:23] LABS: EOSINOPHILS 4 % (0-3); MONOCYTES 6 % (0-5); NEUTROPHILS 85 % (28-66)
[2023-10-04 05:24] LABS: PLATELET ESTIMATE MARKED DECREASE (NORMAL)
[2023-10-04 05:25] LABS: ANISOCYTOSIS 1+
[2023-10-04] MEDS: POTASSIUM CHLORIDE 10MEQ SR TABLET PO ONE ×2 (08:59→12:17)
[2023-10-04] MEDS ORDERED: ENOXAPARIN 40MG/0.4ML SYRINGE (J1650 PER 10MG) SC SCH (09:00)
[2023-10-04] MEDS ORDERED: VANCOMYCIN HCL 1,000 MG, VIAL MATE ADAPTER 1 EACH in D5W 250 ML IV SCH (09:00)
[2023-10-04] MEDS ORDERED: MIRALAX *UNIT DOSE* 17GM PACKET PO PRN (11:50)
[2023-10-04] MEDS: MULTIVITAMINS/MINERALS THERAP 1 TAB PO SCH (12:16)
[2023-10-04 15:36] LABS: IONIZED CALCIUM 4.4 MG/DL (4.5-5.3)
[2023-10-04 16:10] LABS: POTASSIUM SERUM 3.4 MMOL/L (3.5-5.1)
[2023-10-04] MEDS: methocarbamoL 750 MG TAB PO PRN (18:50)
[2023-10-05] VITALS (11 sets, daily range): BP systolic 102–130; BP diastolic 56–70; TEMP 97.8–100.1; O2SAT 63–100
[2023-10-05 05:53] LABS: BASO % 0.1 % (0.0-1.0); EOS # 0.2 10^3/uL (0.0-0.5); EOS % 2.4 % (0.0-3.0); HEMATOCRIT 26.5 % (42.0-52.0); HEMOGLOBIN 8.6 g/dl (13.5-17.5); LYMPH # 0.1 10^3/uL (1.5-5.0); LYMPH % 1.1 % (24.0-44.0); MEAN CORPUSCULAR HEMOGLOBIN 34.1 pg (27.0-33.0); MEAN CORPUSCULAR HGB CONC 32.5 g/dl (32.0-36.5); MEAN CORPUSCULAR VOLUME 105.2 fl (80.0-96.0); MONO # 0.3 10^3/uL (0.0-0.8); MONO % 3.8 % (2.0-8.0); NEUTROPHILS % 91.3 % (36.0-66.0); PLATELET COUNT, AUTOMATED 18 10^3/uL (150-450); RED BLOOD COUNT 2.52 10^6/uL (4.30-6.10); WHITE BLOOD COUNT 7.6 10^3/uL (4.0-10.0)
[2023-10-05 06:15] LABS: CALCIUM LEVEL 7.6 MG/DL (8.3-10.6); CREATININE FOR GFR 1.37 MG/DL (0.70-1.30); GLOMERULAR FILTRATION RATE 54.7 (>42); POTASSIUM SERUM 3.7 MMOL/L (3.5-5.1)
[2023-10-05] MEDS: PREGABALIN 100 MG CAP (LYRICA) PO ONE ×2 (10:37→15:15)
[2023-10-05] MEDS ORDERED: ACETAMINOPHEN TAB 650MG DOSE (2X325MG) PO PRN (14:35)
[2023-10-05] MEDS: ACETAMINOPHEN TAB 650MG DOSE (2X325MG) PO PRN (14:59)
[2023-10-05] MEDS ORDERED: PROHANCE 279.3MG/ML 15ML VIAL As Ordered ONE (18:00)
[2023-10-05] MEDS: PREGABALIN 100 MG CAP (LYRICA) PO SCH (22:59)
[2023-10-06] VITALS (11 sets, daily range): BP systolic 107–156; BP diastolic 56–86; TEMP 97.4–99.6; O2SAT 93–98
[2023-10-06 05:54] LABS: EOS # 0.1 10^3/uL (0.0-0.5); EOS % 1.4 % (0.0-3.0); HEMATOCRIT 24.9 % (42.0-52.0); HEMOGLOBIN 8.1 g/dl (13.5-17.5); LYMPH # 0.1 10^3/uL (1.5-5.0); LYMPH % 1.2 % (24.0-44.0); MEAN CORPUSCULAR HEMOGLOBIN 34.5 pg (27.0-33.0); MEAN CORPUSCULAR HGB CONC 32.5 g/dl (32.0-36.5); MONO # 0.3 10^3/uL (0.0-0.8); MONO % 5.1 % (2.0-8.0); NEUTROPHILS # 5.4 10^3/uL (1.5-8.5); NEUTROPHILS % 91.8 % (36.0-66.0); RED BLOOD COUNT 2.35 10^6/uL (4.30-6.10); WHITE BLOOD COUNT 5.9 10^3/uL (4.0-10.0)
[2023-10-06 05:58] LABS: CREATININE FOR GFR 1.4 MG/DL (0.70-1.30); GLOMERULAR FILTRATION RATE 53.3 (>42); POTASSIUM SERUM 3.6 MMOL/L (3.5-5.1)
[2023-10-06 06:01] LABS: PLATELET COUNT, AUTOMATED 23 10^3/uL (150-450)
[2023-10-06] MEDS: methylPREDNISolone 125MG 2ML VIAL IV ONE (08:29)
[2023-10-06] MEDS: diphenhydrAMINE 50MG/ML VIAL IV STA (08:29)
[2023-10-06] MEDS ORDERED: PANTOPRAZOLE 40MG VIAL IV SCH (09:00)
[2023-10-06] MEDS ORDERED: DEXTROSE 50% 50ML SYRINGE IV PRN (09:05)
[2023-10-06] MEDS ORDERED: GLUCOSE 4 GM CHEW PO PRN (09:05)
[2023-10-06] MEDS ORDERED: GLUCAGON INJ 1MG VIAL SC PRN (09:05)
[2023-10-06] MEDS: D5W/0.45% SODIUM CHLORIDE 1,000 ML IV SCH (09:42)
[2023-10-06 13:07] LABS: ANTINUCLEAR ANTIBODIES DIRECT Negative (Negative)
[2023-10-06] MEDS: methylPREDNISolone 125MG 2ML VIAL IV SCH (13:54)
[2023-10-06] MEDS: diphenhydrAMINE 50MG/ML VIAL IV SCH (13:54)
[2023-10-06] MEDS: NS 1,000 ML IV SCH (15:20)
[2023-10-06] MEDS: cefTRIAXone SOD 2 GM in D5W MINI-BAG PLUS 50 ML IV SCH (18:00)
[2023-10-06] MEDS: PANTOPRAZOLE 40MG VIAL IV SCH (20:37)
[2023-10-06] MEDS: methocarbamoL 750 MG TAB PO PRN (22:09)
[2023-10-07] VITALS (8 sets, daily range): BP systolic 137–179; BP diastolic 68–93; TEMP 97–97.9; O2SAT 95–98
[2023-10-07 05:41] LABS: HEMOGLOBIN 9.5 g/dl (13.5-17.5); LYMPH # 0.1 10^3/uL (1.5-5.0); MEAN CORPUSCULAR HEMOGLOBIN 34.9 pg (27.0-33.0); MEAN CORPUSCULAR HGB CONC 32.8 g/dl (32.0-36.5); MEAN CORPUSCULAR VOLUME 106.6 fl (80.0-96.0); MONO # 0.1 10^3/uL (0.0-0.8); MONO % 3.6 % (2.0-8.0); NEUTROPHILS # 2.8 10^3/uL (1.5-8.5); NEUTROPHILS % 94.1 % (36.0-66.0); RED BLOOD COUNT 2.72 10^6/uL (4.30-6.10)
[2023-10-07 05:48] LABS: PLATELET COUNT, AUTOMATED 23 10^3/uL (150-450)
[2023-10-07 06:02] LABS: BLOOD UREA NITROGEN 34 MG/DL (9-23); CALCIUM LEVEL 8.2 MG/DL (8.3-10.6); CARBON DIOXIDE LEVEL 25 MMOL/L (20-31); CHLORIDE LEVEL 107 MMOL/L (98-107); CREATININE FOR GFR 1.25 MG/DL (0.70-1.30); GLOMERULAR FILTRATION RATE > 60.0 (>42); GLUCOSE, FASTING 198 MG/DL (74-106); POTASSIUM SERUM 4.1 MMOL/L (3.5-5.1); SODIUM LEVEL 140 MMOL/L (136-145)
[2023-10-07] MEDS: DULoxetine 20MG CAP (CYMBALTA) PO SCH (09:05)
[2023-10-07] MEDS: ACETAMINOPHEN 500 MG TAB PO ONE (09:06)
[2023-10-07] MEDS: DICLOFENAC EPOLAMINE 1.3% PATCH TOP SCH (09:07)
[2023-10-07] MEDS: PREGABALIN 100 MG CAP (LYRICA) PO SCH (09:08)
[2023-10-07] MEDS: ACETAMINOPHEN 500 MG TAB PO SCH (15:08)
[2023-10-07] MEDS: **hydrALAZINE HCL** 25 MG TAB PO SCH (18:42)
[2023-10-08] VITALS (7 sets, daily range): BP systolic 119–157; BP diastolic 65–77; TEMP 97–97.9; O2SAT 97–98
[2023-10-08] MEDS: cefTRIAXone SOD 2 GM in D5W MINI-BAG PLUS 50 ML IV SCH (05:01)
[2023-10-08 05:23] LABS: HEMOGLOBIN 9.8 g/dl (13.5-17.5); LYMPH # 0.1 10^3/uL (1.5-5.0); LYMPH % 1.6 % (24.0-44.0); MEAN CORPUSCULAR HEMOGLOBIN 34.5 pg (27.0-33.0); MEAN CORPUSCULAR HGB CONC 32.7 g/dl (32.0-36.5); MEAN CORPUSCULAR VOLUME 105.6 fl (80.0-96.0); MONO # 0.3 10^3/uL (0.0-0.8); MONO % 5.3 % (2.0-8.0); NEUTROPHILS # 4.7 10^3/uL (1.5-8.5); NEUTROPHILS % 92.3 % (36.0-66.0); RED BLOOD COUNT 2.84 10^6/uL (4.30-6.10); WHITE BLOOD COUNT 5.1 10^3/uL (4.0-10.0)
[2023-10-08 05:26] LABS: PLATELET COUNT, AUTOMATED 32 10^3/uL (150-450)
[2023-10-08 05:46] LABS: BLOOD UREA NITROGEN 39 MG/DL (9-23); CALCIUM LEVEL 7.7 MG/DL (8.3-10.6); CARBON DIOXIDE LEVEL 25 MMOL/L (20-31); CHLORIDE LEVEL 110 MMOL/L (98-107); CREATININE FOR GFR 1.06 MG/DL (0.70-1.30); GLOMERULAR FILTRATION RATE > 60.0 (>42); GLUCOSE, FASTING 152 MG/DL (74-106); SODIUM LEVEL 141 MMOL/L (136-145)
[2023-10-08] MEDS: FUROSEMIDE 40MG/4ML VIAL IV SCH (16:56)
[2023-10-08 18:28] LABS: IMMUNOGLOBULIN G 525 MG/DL (650-1600)
[2023-10-09] VITALS (9 sets, daily range): BP systolic 116–157; BP diastolic 64–76; TEMP 98.1–98.6; O2SAT 92–98
[2023-10-09 07:02] LABS: BASO % 0.2 % (0.0-1.0); EOS # 0.1 10^3/uL (0.0-0.5); HEMATOCRIT 32.9 % (42.0-52.0); HEMOGLOBIN 10.5 g/dl (13.5-17.5); LYMPH # 0.1 10^3/uL (1.5-5.0); MEAN CORPUSCULAR HEMOGLOBIN 34.1 pg (27.0-33.0); MEAN CORPUSCULAR HGB CONC 31.9 g/dl (32.0-36.5); MEAN CORPUSCULAR VOLUME 106.8 fl (80.0-96.0); MONO # 0.2 10^3/uL (0.0-0.8); MONO % 3.5 % (2.0-8.0); NEUTROPHILS # 5.7 10^3/uL (1.5-8.5); NEUTROPHILS % 93.6 % (36.0-66.0); RED BLOOD COUNT 3.08 10^6/uL (4.30-6.10); WHITE BLOOD COUNT 6.1 10^3/uL (4.0-10.0)
[2023-10-09 07:08] LABS: PLATELET COUNT, AUTOMATED 34 10^3/uL (150-450)
[2023-10-09 07:28] LABS: BLOOD UREA NITROGEN 36 MG/DL (9-23); CALCIUM LEVEL 7.9 MG/DL (8.3-10.6); CARBON DIOXIDE LEVEL 28 MMOL/L (20-31); CHLORIDE LEVEL 106 MMOL/L (98-107); CREATININE FOR GFR 1.05 MG/DL (0.70-1.30); GLOMERULAR FILTRATION RATE > 60.0 (>42); GLUCOSE, FASTING 75 MG/DL (74-106); SODIUM LEVEL 140 MMOL/L (136-145)
[2023-10-09] MEDS: diphenhydrAMINE 50MG/ML VIAL IV STA (12:22)
[2023-10-09] MEDS: diphenhydrAMINE 50MG/ML VIAL IV SCH (14:07)
[2023-10-09] MEDS ORDERED: IMMUNE GLOBULIN 10% 0 GM in IV 1 EA IV SCH (14:45)
[2023-10-09] MEDS: SODIUM CHLORIDE 0.9% INJ 10 ML SYR IV SCH (16:05)
[2023-10-09] MEDS ORDERED: SODIUM CHLORIDE 0.9% INJ 10 ML SYR IV PRN (16:05)
[2023-10-09] MEDS: diphenhydrAMINE 50MG CAP PO ONE (16:31)
[2023-10-09] MEDS: ACETAMINOPHEN TAB 650MG DOSE (2X325MG) PO ONE (16:31)
[2023-10-09] MEDS: IMMUNE GLOBULIN 10% 20 GM in IV 1 EA IV ONE (17:30)
[2023-10-09] MEDS: IMMUNE GLOBULIN 10% 5 GM in IV 1 EA IV ONE (19:44)
[2023-10-09] MEDS: PREGABALIN 100 MG CAP (LYRICA) PO SCH (20:09)
[2023-10-10 06:00] VITALS: BP 160/78; TEMP 98.6; O2SAT 96
[2023-10-10 06:07] LABS: EOS # 0.1 10^3/uL (0.0-0.5); EOS % 1.7 % (0.0-3.0); HEMATOCRIT 27.1 % (42.0-52.0); LYMPH # 0.1 10^3/uL (1.5-5.0); LYMPH % 2.3 % (24.0-44.0); MEAN CORPUSCULAR HEMOGLOBIN 35.2 pg (27.0-33.0); MEAN CORPUSCULAR HGB CONC 33.2 g/dl (32.0-36.5); MEAN CORPUSCULAR VOLUME 105.9 fl (80.0-96.0); MONO # 0.1 10^3/uL (0.0-0.8); MONO % 2.6 % (2.0-8.0); NEUTROPHILS # 3.2 10^3/uL (1.5-8.5); NEUTROPHILS % 92.2 % (36.0-66.0); RED BLOOD COUNT 2.56 10^6/uL (4.30-6.10); WHITE BLOOD COUNT 3.4 10^3/uL (4.0-10.0)
[2023-10-10 06:12] LABS: PLATELET COUNT, AUTOMATED 23 10^3/uL (150-450)
[2023-10-10 06:36] LABS: BLOOD UREA NITROGEN 30 MG/DL (9-23); CALCIUM LEVEL 7.8 MG/DL (8.3-10.6); CARBON DIOXIDE LEVEL 29 MMOL/L (20-31); CHLORIDE LEVEL 103 MMOL/L (98-107); CREATININE FOR GFR 0.94 MG/DL (0.70-1.30); GLOMERULAR FILTRATION RATE > 60.0 (>42); GLUCOSE, FASTING 97 MG/DL (74-106); POTASSIUM SERUM 3.4 MMOL/L (3.5-5.1); SODIUM LEVEL 138 MMOL/L (136-145)
[2023-10-10] MEDS: POTASSIUM CHLORIDE 10MEQ SR TABLET PO ONE (09:12)
[2023-10-10] MEDS: GABAPENTIN 100 MG CAP PO SCH (09:13)
[2023-10-10 14:00] VITALS: BP 147/69; TEMP 97.7; O2SAT 94
[2023-10-10 22:00] VITALS: BP 140/67; TEMP 98.1; O2SAT 96
[2023-10-11 06:00] VITALS: BP 173/81; TEMP 98.1; O2SAT 96
[2023-10-11 06:41] LABS: EOS # 0.1 10^3/uL (0.0-0.5); EOS % 2.3 % (0.0-3.0); HEMATOCRIT 26.7 % (42.0-52.0); HEMOGLOBIN 8.6 g/dl (13.5-17.5); LYMPH # 0.1 10^3/uL (1.5-5.0); LYMPH % 2.5 % (24.0-44.0); MEAN CORPUSCULAR HEMOGLOBIN 33.7 pg (27.0-33.0); MEAN CORPUSCULAR HGB CONC 32.2 g/dl (32.0-36.5); MEAN CORPUSCULAR VOLUME 104.7 fl (80.0-96.0); MONO # 0.1 10^3/uL (0.0-0.8); MONO % 3.3 % (2.0-8.0); NEUTROPHILS # 3.6 10^3/uL (1.5-8.5); NEUTROPHILS % 91.4 % (36.0-66.0); RED BLOOD COUNT 2.55 10^6/uL (4.30-6.10); WHITE BLOOD COUNT 3.9 10^3/uL (4.0-10.0)
[2023-10-11 06:45] LABS: PLATELET COUNT, AUTOMATED 27 10^3/uL (150-450)
[2023-10-11 07:07] LABS: BLOOD UREA NITROGEN 23 MG/DL (9-23); CALCIUM LEVEL 7.6 MG/DL (8.3-10.6); CARBON DIOXIDE LEVEL 30 MMOL/L (20-31); CHLORIDE LEVEL 101 MMOL/L (98-107); CREATININE FOR GFR 0.86 MG/DL (0.70-1.30); GLOMERULAR FILTRATION RATE > 60.0 (>42); GLUCOSE, FASTING 84 MG/DL (74-106); POTASSIUM SERUM 3.5 MMOL/L (3.5-5.1); SODIUM LEVEL 136 MMOL/L (136-145)
[2023-10-11] MEDS: PREGABALIN 75 MG CAP(LYRICA) PO SCH (09:28)
[2023-10-11] MEDS: PANTOPRAZOLE 40MG TAB (PROTONIX) PO SCH (09:28)
[2023-10-11 14:00] VITALS: BP 124/63; TEMP 98.3; O2SAT 98
[2023-10-11] MEDS: ACETAMINOPHEN 500 MG TAB PO SCH (18:11)
[2023-10-11 22:00] VITALS: BP 123/60; TEMP 98.6; O2SAT 96
[2023-10-12] VITALS (9 sets, daily range): BP systolic 96–145; BP diastolic 56–80; TEMP 97.6–101.1; O2SAT 96–98
[2023-10-12 07:06] LABS: BASO % 0.2 % (0.0-1.0); EOS # 0.1 10^3/uL (0.0-0.5); EOS % 1.2 % (0.0-3.0); HEMATOCRIT 27.4 % (42.0-52.0); HEMOGLOBIN 9.1 g/dl (13.5-17.5); LYMPH % 0.8 % (24.0-44.0); MEAN CORPUSCULAR HEMOGLOBIN 34.9 pg (27.0-33.0); MEAN CORPUSCULAR HGB CONC 33.2 g/dl (32.0-36.5); MONO # 0.1 10^3/uL (0.0-0.8); NEUTROPHILS % 96.2 % (36.0-66.0); RED BLOOD COUNT 2.61 10^6/uL (4.30-6.10); WHITE BLOOD COUNT 5.1 10^3/uL (4.0-10.0)
[2023-10-12 07:12] LABS: PLATELET COUNT, AUTOMATED 29 10^3/uL (150-450)
[2023-10-12 07:26] LABS: ALBUMIN 1.8 G/DL (3.2-5.2); ALKALINE PHOSPHATASE 341 U/L (46-116); ALT/SGPT 48 U/L (7.0-40); AST/SGOT 32 U/L (<34); BILIRUBIN,TOTAL 0.4 MG/DL (0.3-1.2); BLOOD UREA NITROGEN 19 MG/DL (9-23); CALCIUM LEVEL 8.2 MG/DL (8.3-10.6); CARBON DIOXIDE LEVEL 29 MMOL/L (20-31); CHLORIDE LEVEL 102 MMOL/L (98-107); GLOMERULAR FILTRATION RATE > 60.0 (>42); GLUCOSE, FASTING 88 MG/DL (74-106); POTASSIUM SERUM 3.6 MMOL/L (3.5-5.1); SODIUM LEVEL 138 MMOL/L (136-145); TOTAL PROTEIN 4.7 G/DL (5.7-8.2)
[2023-10-12 08:46] LABS: APPEARANCE, URINE CLEAR (CLEAR); BACTERIA, URINE AUTO NEGATIVE (NEGATIVE); BILIRUBIN, URINE AUTO NEGATIVE (NEGATIVE); BLOOD, URINE BLOOD NEGATIVE (NEGATIVE); COLOR, URINE YELLOW (YELLOW); GLUCOSE, URINE (UA) AUTO NEGATIVE (NEGATIVE); KETONE, URINE AUTO NEGATIVE (NEGATIVE); LEUKOCYTE ESTERASE, URINE AUTO NEGATIVE (NEGATIVE); NITRITE, URINE AUTO NEGATIVE (NEGATIVE); PROTEIN, URINE AUTO NEGATIVE (NEGATIVE); RBC, URINE AUTO 1 /HPF (0-3); SPECIFIC GRAVITY URINE AUTO 1.014 (1.002-1.035); SQUAMOUS EPITHELIAL CELL UR AU 0 /HPF (0-6); UROBILINOGEN, URINE AUTO 0.2 mg/dL (0.0-2.0); WBC, URINE AUTO 2 /HPF (0-3)
[2023-10-12 12:09] LABS: PROCALCITONIN 0.48 ng/ml
[2023-10-13 00:45] VITALS: BP 124/57; TEMP 100.8; O2SAT 95
[2023-10-13] MEDS: NS 1,000 ML IV ONE (01:00)
[2023-10-13 01:16] LABS: EOS # 0.1 10^3/uL (0.0-0.5); EOS % 2.4 % (0.0-3.0); HEMATOCRIT 24.9 % (42.0-52.0); HEMOGLOBIN 8.3 g/dl (13.5-17.5); LYMPH # 0.1 10^3/uL (1.5-5.0); LYMPH % 2.8 % (24.0-44.0); MEAN CORPUSCULAR HEMOGLOBIN 35.2 pg (27.0-33.0); MEAN CORPUSCULAR HGB CONC 33.3 g/dl (32.0-36.5); MEAN CORPUSCULAR VOLUME 105.5 fl (80.0-96.0); MONO # 0.1 10^3/uL (0.0-0.8); MONO % 4.7 % (2.0-8.0); NEUTROPHILS # 1.9 10^3/uL (1.5-8.5); NEUTROPHILS % 89.6 % (36.0-66.0); RED BLOOD COUNT 2.36 10^6/uL (4.30-6.10); WHITE BLOOD COUNT 2.1 10^3/uL (4.0-10.0)
[2023-10-13 01:19] LABS: PLATELET COUNT, AUTOMATED 27 10^3/uL (150-450)
[2023-10-13] MEDS: VANCOMYCIN HCL 750 MG, VIAL MATE ADAPTER 1 EACH in D5W 250 ML IV ONE ×2 (01:19→02:46)
[2023-10-13 01:42] LABS: BLOOD UREA NITROGEN 17 MG/DL (9-23); CALCIUM LEVEL 7.5 MG/DL (8.3-10.6); CARBON DIOXIDE LEVEL 30 MMOL/L (20-31); CHLORIDE LEVEL 101 MMOL/L (98-107); CREATININE FOR GFR 0.83 MG/DL (0.70-1.30); GLOMERULAR FILTRATION RATE > 60.0 (>42); GLUCOSE, FASTING 111 MG/DL (74-106); POTASSIUM SERUM 3.6 MMOL/L (3.5-5.1); SODIUM LEVEL 137 MMOL/L (136-145)
[2023-10-13] MEDS: PIPERACILLIN/TAZOBACTAM SOD 4.5 GM in D5W MINI-BAG PLUS 50 ML IV SCH (04:39)
[2023-10-13 05:40] VITALS: BP 152/80; TEMP 99.9; O2SAT 95
[2023-10-13] MEDS: LIDOCAINE 5% (LIDODERM) PATCH TD SCH (08:48)
[2023-10-13] MEDS: oxyCODONE 5MG TAB PO PRN (11:12)
[2023-10-13] MEDS: VANCOMYCIN HCL 1,000 MG, VIAL MATE ADAPTER 1 EACH in D5W 250 ML IV SCH (12:39)
[2023-10-13 17:26] VITALS: TEMP 100.3
[2023-10-13 21:49] VITALS: BP 112/59; TEMP 98.2; O2SAT 95
[2023-10-14 06:25] VITALS: BP 131/68; TEMP 97.5; O2SAT 97
[2023-10-14] MEDS ORDERED: LIDOCAINE 1% MDV 20ML VIAL As Ordered ONE (06:36)
[2023-10-14 06:37] LABS: VANCOMYCIN RANDOM 19.7 UG/ML
[2023-10-14 06:40] VITALS: BP 134/68; TEMP 98.1; O2SAT 96
[2023-10-14 07:45] LABS: HEMATOCRIT 24.8 % (42.0-52.0); HEMOGLOBIN 8.2 g/dl (13.5-17.5); MEAN CORPUSCULAR HEMOGLOBIN 35.5 pg (27.0-33.0); MEAN CORPUSCULAR HGB CONC 33.1 g/dl (32.0-36.5); MEAN CORPUSCULAR VOLUME 107.4 fl (80.0-96.0); RED BLOOD COUNT 2.31 10^6/uL (4.30-6.10); WHITE BLOOD COUNT 1.9 10^3/uL (4.0-10.0)
[2023-10-14 07:51] LABS: PLATELET COUNT, AUTOMATED 23 10^3/uL (150-450)
[2023-10-14 07:56] LABS: BLOOD UREA NITROGEN 13 MG/DL (9-23); CALCIUM LEVEL 7.6 MG/DL (8.3-10.6); CARBON DIOXIDE LEVEL 33 MMOL/L (20-31); CHLORIDE LEVEL 98 MMOL/L (98-107); CREATININE FOR GFR 0.95 MG/DL (0.70-1.30); GLOMERULAR FILTRATION RATE > 60.0 (>42); GLUCOSE, FASTING 77 MG/DL (74-106); POTASSIUM SERUM 3.5 MMOL/L (3.5-5.1); SODIUM LEVEL 134 MMOL/L (136-145)
[2023-10-14 14:00] VITALS: BP 127/67; TEMP 97.9; O2SAT 94
[2023-10-14 21:39] VITALS: BP 127/68; TEMP 97.9; O2SAT 98
[2023-10-15 05:05] VITALS: BP 126/67; TEMP 97.7; O2SAT 96
[2023-10-15 07:00] LABS: HEMATOCRIT 26.1 % (42.0-52.0); HEMOGLOBIN 8.5 g/dl (13.5-17.5); MEAN CORPUSCULAR HEMOGLOBIN 34.3 pg (27.0-33.0); MEAN CORPUSCULAR HGB CONC 32.6 g/dl (32.0-36.5); MEAN CORPUSCULAR VOLUME 105.2 fl (80.0-96.0); RED BLOOD COUNT 2.48 10^6/uL (4.30-6.10); WHITE BLOOD COUNT 1.9 10^3/uL (4.0-10.0)
[2023-10-15 07:04] LABS: PLATELET COUNT, AUTOMATED 28 10^3/uL (150-450)
[2023-10-15 07:26] LABS: BLOOD UREA NITROGEN 12 MG/DL (9-23); CALCIUM LEVEL 8.1 MG/DL (8.3-10.6); CARBON DIOXIDE LEVEL 33 MMOL/L (20-31); CHLORIDE LEVEL 100 MMOL/L (98-107); CREATININE FOR GFR 0.93 MG/DL (0.70-1.30); GLOMERULAR FILTRATION RATE > 60.0 (>42); GLUCOSE, FASTING 75 MG/DL (74-106); POTASSIUM SERUM 3.6 MMOL/L (3.5-5.1); SODIUM LEVEL 137 MMOL/L (136-145)
[2023-10-15] MEDS ORDERED: DICLOFENAC EPOLAMINE 1.3% PATCH TOP SCH (09:00)
[2023-10-15] MEDS: VANCOMYCIN HCL 750 MG, VIAL MATE ADAPTER 1 EACH in D5W 250 ML IV SCH ×2 (11:57→13:07)
[2023-10-15 14:00] VITALS: BP 125/66; TEMP 98.6; O2SAT 96
[2023-10-15 20:26] VITALS: BP 101/62; TEMP 98.8; O2SAT 95
[2023-10-15 20:35] VITALS: BP 128/64; TEMP 98.4; O2SAT 95
[2023-10-15] MEDS: DICLOFENAC EPOLAMINE 1.3% PATCH TOP SCH (21:48)
[2023-10-16 06:47] LABS: HEMATOCRIT 24.6 % (42.0-52.0); MEAN CORPUSCULAR HEMOGLOBIN 34.5 pg (27.0-33.0); MEAN CORPUSCULAR HGB CONC 32.5 g/dl (32.0-36.5); RED BLOOD COUNT 2.32 10^6/uL (4.30-6.10); WHITE BLOOD COUNT 2.3 10^3/uL (4.0-10.0)
[2023-10-16 06:57] LABS: PLATELET COUNT, AUTOMATED 24 10^3/uL (150-450)
[2023-10-16 07:07] LABS: BLOOD UREA NITROGEN 13 MG/DL (9-23); CARBON DIOXIDE LEVEL 32 MMOL/L (20-31); CHLORIDE LEVEL 99 MMOL/L (98-107); CREATININE FOR GFR 0.96 MG/DL (0.70-1.30); GLOMERULAR FILTRATION RATE > 60.0 (>42); GLUCOSE, FASTING 100 MG/DL (74-106); POTASSIUM SERUM 3.5 MMOL/L (3.5-5.1); SODIUM LEVEL 136 MMOL/L (136-145)
[2023-10-16 07:32] LABS: EOSINOPHILS 2 % (0-3); LYMPHOCYTES 5 % (16-44); MONOCYTES 5 % (0-5); NEUTROPHILS 88 % (28-66); PLATELET ESTIMATE MARKED DECREASE (NORMAL)
[2023-10-16 07:39] VITALS: BP 124/64; TEMP 99; O2SAT 94
[2023-10-16] MEDS: cefTRIAXone SOD 2 GM in D5W MINI-BAG PLUS 50 ML IV SCH (10:00)
[2023-10-16] MEDS ORDERED: CEFT2INJ4 IV (14:06)
[2023-10-16] MEDS ORDERED: DICL1PAT6 TOP (14:06)
[2023-10-16] MEDS ORDERED: LYRI75CA PO ×2 (14:06→14:19)
[2023-10-16] MEDS ORDERED: DULO1CAP4 PO (14:06)
[2023-10-16] MEDS ORDERED: LIDO5TD TD (14:06)
[2023-10-16] MEDS ORDERED: OXYC-517 PO (14:19)
[2023-10-16 14:20] VITALS: BP 131/60; TEMP 98.4; O2SAT 95
== END 2023-10-16 16:47 | disposition home health service (06) | DRG 871 ==
LOC: M ED 09:48 → M ED INP 15:09 → M ICU 16:28 → M PCU 10-04 17:57 → M ICU 10-06 08:19 → M MSPAV 10-08 13:37
PROVIDERS: ADMIT Internal Medicine Pulmonary Disease; ATTEND Internal Medicine
PROC: B246ZZZ Ultrasonography of Right and Left Heart (ICD-10-PCS; 2023-10-04)
PROC: 30233R1 Transfusion of Nonautologous Platelets into Peripheral Vein, Percutaneous Approach (ICD-10-PCS; 2023-10-05)
PROC: 0CJY8ZZ Inspection of Mouth and Throat, Via Natural or Artificial Opening Endoscopic (ICD-10-PCS; 2023-10-06)
PROC: 0H9JXZX Drainage of Left Upper Leg Skin, External Approach, Diagnostic (ICD-10-PCS; principal; 2023-10-14 07:24)
DX: A41.51 Sepsis due to Escherichia coli [E. coli] (principal); G06.1 Intraspinal abscess and granuloma; D61.810 Antineoplastic chemotherapy induced pancytopenia; I82.503 Chronic embolism and thrombosis of unspecified deep veins of lower extremity, bilateral; M46.24 Osteomyelitis of vertebra, thoracic region; C82.90 Follicular lymphoma, unspecified, unspecified site; K76.6 Portal hypertension; L97.229 Non-pressure chronic ulcer of left calf with unspecified severity; L03.116 Cellulitis of left lower limb; M46.44 Discitis, unspecified, thoracic region; I10 Essential (primary) hypertension; J44.9 Chronic obstructive pulmonary disease, unspecified; K21.9 Gastro-esophageal reflux disease without esophagitis; R26.89 Other abnormalities of gait and mobility; T50.8X5A Adverse effect of diagnostic agents, initial encounter; T45.1X5A Adverse effect of antineoplastic and immunosuppressive drugs, initial encounter; Z88.1 Allergy status to other antibiotic agents; E87.6 Hypokalemia; R31.9 Hematuria, unspecified; G62.9 Polyneuropathy, unspecified; M81.0 Age-related osteoporosis without current pathological fracture; M19.90 Unspecified osteoarthritis, unspecified site; Z86.16 Personal history of COVID-19; Z96.642 Presence of left artificial hip joint; Z79.899 Other long term (current) drug therapy; Z87.891 Personal history of nicotine dependence

== ENCOUNTER → 2023-10-19 | Outpatient (REF) | payer MEDICARE ==
[~2023-10-19] MED LIST changes: +CEFT2INJ4 IV; +DICL1PAT6 TOP; +DULO1CAP4 PO; +EQL50TAB2 PO; +IBUP-1114 PO; +LIDO5TD TD; +LYRI75CA PO; +METH-1165 PO; +OXYC-517 PO; +VITA59DR PO
[2023-10-19 15:17] LABS: HEMATOCRIT 26.1 % (42.0-52.0); HEMOGLOBIN 8.2 g/dl (13.5-17.5); MEAN CORPUSCULAR HGB CONC 31.4 g/dl (32.0-36.5); MEAN CORPUSCULAR VOLUME 108.3 fl (80.0-96.0); RED BLOOD COUNT 2.41 10^6/uL (4.30-6.10); WHITE BLOOD COUNT 2.1 10^3/uL (4.0-10.0)
[2023-10-19 15:20] LABS: PLATELET COUNT, AUTOMATED 27 10^3/uL (150-450)
[2023-10-19 15:23] LABS: ERYTHROCYTE SEDIMENTATION RATE 35 mm/hr (0-20)
[2023-10-19 15:40] LABS: ALBUMIN 2.2 G/DL (3.2-5.2); ALKALINE PHOSPHATASE 376 U/L (46-116); ALT/SGPT 40 U/L (7.0-40); AST/SGOT 41 U/L (<34); BILIRUBIN,TOTAL 0.3 MG/DL (0.3-1.2); BLOOD UREA NITROGEN 14 MG/DL (9-23); CALCIUM LEVEL 8.5 MG/DL (8.3-10.6); CARBON DIOXIDE LEVEL 32 MMOL/L (20-31); CHLORIDE LEVEL 102 MMOL/L (98-107); CREATININE FOR GFR 0.91 MG/DL (0.70-1.30); GLOMERULAR FILTRATION RATE > 60.0 (>42); GLUCOSE, FASTING 76 MG/DL (74-106); POTASSIUM SERUM 3.3 MMOL/L (3.5-5.1); SODIUM LEVEL 139 MMOL/L (136-145); TOTAL PROTEIN 4.9 G/DL (5.7-8.2)
== END ==
LOC: M SHH 15:02
PROVIDERS: ATTEND Internal Medicine Infectious Disease
DX: L02.91 Cutaneous abscess, unspecified (principal); G63 Polyneuropathy in diseases classified elsewhere; R60.0 Localized edema

== ENCOUNTER → 2023-10-20 | Outpatient (REF) | payer MEDICARE ==
[2023-10-20 18:01] LABS: BASO % 0.7 % (0.0-1.0); EOS # 0.1 10^3/uL (0.0-0.5); EOS % 4.7 % (0.0-3.0); HEMATOCRIT 27.5 % (42.0-52.0); HEMOGLOBIN 8.6 g/dl (13.5-17.5); LYMPH # 0.3 10^3/uL (1.5-5.0); LYMPH % 8.4 % (24.0-44.0); MEAN CORPUSCULAR HEMOGLOBIN 34.1 pg (27.0-33.0); MEAN CORPUSCULAR HGB CONC 31.3 g/dl (32.0-36.5); MEAN CORPUSCULAR VOLUME 109.1 fl (80.0-96.0); MONO # 0.6 10^3/uL (0.0-0.8); MONO % 20.5 % (2.0-8.0); NEUTROPHILS # 1.9 10^3/uL (1.5-8.5); RED BLOOD COUNT 2.52 10^6/uL (4.30-6.10)
[2023-10-20 18:04] LABS: PLATELET COUNT, AUTOMATED 32 10^3/uL (150-450)
[2023-10-20 18:38] LABS: ALBUMIN 2.4 G/DL (3.2-5.2); ALKALINE PHOSPHATASE 357 U/L (46-116); ALT/SGPT 38 U/L (7.0-40); AST/SGOT 36 U/L (<34); BILIRUBIN,TOTAL 0.3 MG/DL (0.3-1.2); BLOOD UREA NITROGEN 16 MG/DL (9-23); CARBON DIOXIDE LEVEL 32 MMOL/L (20-31); CHLORIDE LEVEL 102 MMOL/L (98-107); GLOMERULAR FILTRATION RATE > 60.0 (>42); GLUCOSE, FASTING 86 MG/DL (74-106); POTASSIUM SERUM 4.2 MMOL/L (3.5-5.1); SODIUM LEVEL 140 MMOL/L (136-145); TOTAL PROTEIN 5.3 G/DL (5.7-8.2)
== END ==
LOC: M SFHCADAM 14:28
PROVIDERS: ATTEND Family Medicine
DX: L02.91 Cutaneous abscess, unspecified (principal)

== ENCOUNTER → 2023-10-23 | Outpatient (CLI) | payer MEDICARE ==
[2023-10-23 18:00] LABS: BASO % 0.7 % (0.0-1.0); EOS # 0.2 10^3/uL (0.0-0.5); EOS % 3.7 % (0.0-3.0); HEMATOCRIT 30.4 % (42.0-52.0); HEMOGLOBIN 9.3 g/dl (13.5-17.5); LYMPH # 0.3 10^3/uL (1.5-5.0); LYMPH % 6.2 % (24.0-44.0); MEAN CORPUSCULAR HEMOGLOBIN 33.9 pg (27.0-33.0); MEAN CORPUSCULAR HGB CONC 30.6 g/dl (32.0-36.5); MEAN CORPUSCULAR VOLUME 110.9 fl (80.0-96.0); MONO # 0.5 10^3/uL (0.0-0.8); MONO % 13.4 % (2.0-8.0); NEUTROPHILS % 75.5 % (36.0-66.0); PLATELET COUNT, AUTOMATED 47 10^3/uL (150-450); RED BLOOD COUNT 2.74 10^6/uL (4.30-6.10)
[2023-10-23 18:08] LABS: RHEUMATOID FACTOR QUANT 7.6 IU/ML (<14); THYROID STIMULATING HORMONE 2.386 uIU/ML (0.55-4.78); THYROXINE (T4) 12.6 UG/DL (4.5-10.9)
[2023-10-23 18:09] LABS: FOLATE 22.8 NG/ML (>5.4); VITAMIN B12 LEVEL 1025 PG/ML (211-911)
[2023-10-23 18:13] LABS: ALBUMIN 2.7 G/DL (3.2-5.2); ALKALINE PHOSPHATASE 312 U/L (46-116); ALT/SGPT 38 U/L (7.0-40); AST/SGOT 36 U/L (<34); BILIRUBIN,TOTAL 0.3 MG/DL (0.3-1.2); BLOOD UREA NITROGEN 17 MG/DL (9-23); CALCIUM LEVEL 9.4 MG/DL (8.3-10.6); CARBON DIOXIDE LEVEL 32 MMOL/L (20-31); CHLORIDE LEVEL 105 MMOL/L (98-107); CREATININE FOR GFR 0.91 MG/DL (0.70-1.30); ERYTHROCYTE SEDIMENTATION RATE 43 mm/hr (0-20); FREE THYROXINE INDEX 3.6 % (1.4-3.8); GLOMERULAR FILTRATION RATE > 60.0 (>42); GLUCOSE, FASTING 84 MG/DL (74-106); HEMOGLOBIN A1c 5.2 % (4.0-6.0); POTASSIUM SERUM 4.1 MMOL/L (3.5-5.1); SODIUM LEVEL 142 MMOL/L (136-145); T UPTAKE 28.7 % (22.5-37.0); TOTAL PROTEIN 5.8 G/DL (5.7-8.2)
== END ==
LOC: M LABDRWAD 11:09
PROVIDERS: ATTEND Psychiatry & Neurology Neurology
DX: E11.42 Type 2 diabetes mellitus with diabetic polyneuropathy (principal); E07.9 Disorder of thyroid, unspecified; E53.8 Deficiency of other specified B group vitamins

== ENCOUNTER → 2023-10-26 | Outpatient (REF) | payer MEDICARE ==
[2023-10-26 16:02] LABS: HEMATOCRIT 28.1 % (42.0-52.0); HEMOGLOBIN 8.7 g/dl (13.5-17.5); MEAN CORPUSCULAR HEMOGLOBIN 34.1 pg (27.0-33.0); MEAN CORPUSCULAR VOLUME 110.2 fl (80.0-96.0); RED BLOOD COUNT 2.55 10^6/uL (4.30-6.10); WHITE BLOOD COUNT 3.3 10^3/uL (4.0-10.0)
[2023-10-26 16:19] LABS: PLATELET COUNT, AUTOMATED 62 10^3/uL (150-450)
[2023-10-26 16:25] LABS: ALBUMIN 2.9 G/DL (3.2-5.2); ALKALINE PHOSPHATASE 266 U/L (46-116); ALT/SGPT 34 U/L (7.0-40); AST/SGOT 33 U/L (<34); BILIRUBIN,TOTAL 0.3 MG/DL (0.3-1.2); BLOOD UREA NITROGEN 17 MG/DL (9-23); CALCIUM LEVEL 9.2 MG/DL (8.3-10.6); CARBON DIOXIDE LEVEL 32 MMOL/L (20-31); CHLORIDE LEVEL 103 MMOL/L (98-107); CREATININE FOR GFR 0.86 MG/DL (0.70-1.30); GLOMERULAR FILTRATION RATE > 60.0 (>42); GLUCOSE, FASTING 89 MG/DL (74-106); POTASSIUM SERUM 3.5 MMOL/L (3.5-5.1); SODIUM LEVEL 142 MMOL/L (136-145)
[2023-10-26 16:29] LABS: ERYTHROCYTE SEDIMENTATION RATE 42 mm/hr (0-20)
== END ==
LOC: M SHH 14:46
PROVIDERS: ATTEND Internal Medicine Infectious Disease
DX: E78.00 Pure hypercholesterolemia, unspecified (principal)

== ENCOUNTER → 2023-11-03 | Outpatient (REF) | payer MEDICARE ==
[2023-11-03 14:37] LABS: HEMATOCRIT 28.2 % (42.0-52.0); MEAN CORPUSCULAR HEMOGLOBIN 35.6 pg (27.0-33.0); MEAN CORPUSCULAR HGB CONC 31.9 g/dl (32.0-36.5); MEAN CORPUSCULAR VOLUME 111.5 fl (80.0-96.0); PLATELET COUNT, AUTOMATED 100 10^3/uL (150-450); RED BLOOD COUNT 2.53 10^6/uL (4.30-6.10); WHITE BLOOD COUNT 3.7 10^3/uL (4.0-10.0)
[2023-11-03 15:01] LABS: ALBUMIN 3.1 G/DL (3.2-5.2); ALKALINE PHOSPHATASE 193 U/L (46-116); ALT/SGPT 20 U/L (7.0-40); AST/SGOT 22 U/L (<34); BILIRUBIN,TOTAL 0.3 MG/DL (0.3-1.2); BLOOD UREA NITROGEN 19 MG/DL (9-23); CALCIUM LEVEL 9.2 MG/DL (8.3-10.6); CARBON DIOXIDE LEVEL 32 MMOL/L (20-31); CHLORIDE LEVEL 103 MMOL/L (98-107); CREATININE FOR GFR 0.97 MG/DL (0.70-1.30); GLOMERULAR FILTRATION RATE > 60.0 (>42); GLUCOSE, FASTING 104 MG/DL (74-106); POTASSIUM SERUM 4.5 MMOL/L (3.5-5.1); SODIUM LEVEL 139 MMOL/L (136-145); TOTAL PROTEIN 5.9 G/DL (5.7-8.2)
[2023-11-03 15:10] LABS: ERYTHROCYTE SEDIMENTATION RATE 49 mm/hr (0-20)
== END ==
LOC: M SHH 14:21
PROVIDERS: ATTEND Internal Medicine Infectious Disease
DX: E78.00 Pure hypercholesterolemia, unspecified (principal)

== ENCOUNTER 2023-11-04 07:55 | Outpatient (CLI) | payer MEDICARE ==
[~2023-11-04] VITALS: Ht 165.1 cm; Wt 68.0 kg
[~2023-11-04 07:55] MED LIST changes: +ALBUTEROL SULFATE 2.5MG/0.5ML INH NEB SOLN INH PRN; +EPINEPHrine INJ 1 MG/ML 1ML AMP IM PRN; +NS 1,000 ML IV SCH; +diphenhydrAMINE 50MG/ML VIAL IV PRN; +methylPREDNISolone 125MG 2ML VIAL IV PRN
[2023-11-04 07:57] VITALS: BP 122/59; O2SAT 92
[2023-11-04] MEDS: IMMUNE GLOBULIN 10% 20 GM in IV 1 EA IV ONE (08:59)
[2023-11-04] MEDS: IMMUNE GLOBULIN 10% 5 GM in IV 1 EA IV ONE (09:03)
[2023-11-04] MEDS: IMMUNE GLOBULIN 10% 10 GM in IV 1 EA IV ONE (09:04)
[2023-11-04 09:31] VITALS: BP 133/69; O2SAT 98
[2023-11-04 09:57] VITALS: BP 135/65; O2SAT 99
[2023-11-04 10:30] VITALS: BP 137/77; O2SAT 97
[2023-11-04 11:00] VITALS: BP 144/75; O2SAT 97
[2023-11-04 12:15] VITALS: BP 167/79; O2SAT 98
== END 2023-11-04 12:15 | disposition home or self-care (01) ==
LOC: M INFU 07:55
PROVIDERS: ATTEND Specialist
DX: D80.1 Nonfamilial hypogammaglobulinemia (principal); Z88.8 Allergy status to other drugs, medicaments and biological substances; Z91.041 Radiographic dye allergy status
CPT/HCPCS: 96365; 96366; J1459

== ENCOUNTER → 2023-11-09 | Outpatient (REF) | payer MEDICARE ==
[~2023-11-09] MED LIST changes: -ALBUTEROL SULFATE 2.5MG/0.5ML INH NEB SOLN INH PRN; -EPINEPHrine INJ 1 MG/ML 1ML AMP IM PRN; -NS 1,000 ML IV SCH; -diphenhydrAMINE 50MG/ML VIAL IV PRN; -methylPREDNISolone 125MG 2ML VIAL IV PRN
[2023-11-09 13:51] LABS: HEMATOCRIT 28.4 % (42.0-52.0); MEAN CORPUSCULAR HEMOGLOBIN 35.6 pg (27.0-33.0); MEAN CORPUSCULAR HGB CONC 31.7 g/dl (32.0-36.5); MEAN CORPUSCULAR VOLUME 112.3 fl (80.0-96.0); RED BLOOD COUNT 2.53 10^6/uL (4.30-6.10); WHITE BLOOD COUNT 2.9 10^3/uL (4.0-10.0)
[2023-11-09 13:52] LABS: PLATELET COUNT, AUTOMATED 88 10^3/uL (150-450)
[2023-11-09 13:55] LABS: ERYTHROCYTE SEDIMENTATION RATE 60 mm/hr (0-20)
[2023-11-09 14:19] LABS: ALBUMIN 3.1 G/DL (3.2-5.2); ALKALINE PHOSPHATASE 187 U/L (46-116); ALT/SGPT 18 U/L (7.0-40); AST/SGOT 21 U/L (<34); BILIRUBIN,TOTAL 0.3 MG/DL (0.3-1.2); BLOOD UREA NITROGEN 14 MG/DL (9-23); CALCIUM LEVEL 8.9 MG/DL (8.3-10.6); CARBON DIOXIDE LEVEL 30 MMOL/L (20-31); CHLORIDE LEVEL 102 MMOL/L (98-107); CREATININE FOR GFR 0.93 MG/DL (0.70-1.30); GLOMERULAR FILTRATION RATE > 60.0 (>42); GLUCOSE, FASTING 82 MG/DL (74-106); POTASSIUM SERUM 3.9 MMOL/L (3.5-5.1); SODIUM LEVEL 137 MMOL/L (136-145); TOTAL PROTEIN 6.2 G/DL (5.7-8.2)
== END ==
LOC: M SHH 13:31
PROVIDERS: ATTEND Internal Medicine Infectious Disease
DX: E78.00 Pure hypercholesterolemia, unspecified (principal)

== ENCOUNTER → 2023-11-10 | Outpatient (CLI) | payer MEDICARE ==
[~2023-11-10] MED LIST changes: +SENN-52 PO
== END ==
LOC: M PAIN 08:00
PROVIDERS: ATTEND Nurse Practitioner Family
DX: M54.50 Low back pain, unspecified (principal); M54.6 Pain in thoracic spine; G63 Polyneuropathy in diseases classified elsewhere; M19.90 Unspecified osteoarthritis, unspecified site; C82.20 Follicular lymphoma grade III, unspecified, unspecified site; Z87.891 Personal history of nicotine dependence; Z79.891 Long term (current) use of opiate analgesic; Z79.899 Other long term (current) drug therapy; Z91.041 Radiographic dye allergy status

== ENCOUNTER → 2023-11-24 | Outpatient (CLI) | payer MEDICARE | LOC: M PAL 10:05 | PROVIDERS: ATTEND Nurse Practitioner Adult Health | DX: G89.3 Neoplasm related pain (acute) (chronic) (principal); G60.9 Hereditary and idiopathic neuropathy, unspecified; C82.90 Follicular lymphoma, unspecified, unspecified site; M48.54XA Collapsed vertebra, not elsewhere classified, thoracic region, initial encounter for fracture; K59.00 Constipation, unspecified; Z51.5 Encounter for palliative care; Z79.899 Other long term (current) drug therapy; Z88.8 Allergy status to other drugs, medicaments and biological substances; Z96.642 Presence of left artificial hip joint; Z82.41 Family history of sudden cardiac death; Z87.891 Personal history of nicotine dependence; Z88.0 Allergy status to penicillin ==

== ENCOUNTER → 2023-11-30 | Outpatient (CLI) | payer MEDICARE ==
[~2023-11-30] MED LIST changes: +PROHANCE 279.3MG/ML 15ML VIAL As Ordered ONE
== END ==
LOC: M RAD 08:15
PROVIDERS: ATTEND Internal Medicine Infectious Disease
DX: M25.551 Pain in right hip (principal); M25.552 Pain in left hip; Z96.642 Presence of left artificial hip joint
CPT/HCPCS: 72197; A9576

== ENCOUNTER 2023-12-02 07:45 | Outpatient (CLI) | payer MEDICARE ==
[~2023-12-02] VITALS: Ht 165.1 cm; Wt 68.0 kg
[~2023-12-02 07:45] MED LIST changes: +ALBUTEROL SULFATE 2.5MG/0.5ML INH NEB SOLN INH PRN; +EPINEPHrine INJ 1 MG/ML 1ML AMP IM PRN; +NS 1,000 ML IV SCH; -PROHANCE 279.3MG/ML 15ML VIAL As Ordered ONE; +diphenhydrAMINE 50MG/ML VIAL IV PRN; +methylPREDNISolone 125MG 2ML VIAL IV PRN
[2023-12-02 08:00] VITALS: BP 139/68; O2SAT 95
[2023-12-02] MEDS: IMMUNE GLOBULIN 10% 20 GM in IV 1 EA IV ONE (08:24)
[2023-12-02] MEDS: IMMUNE GLOBULIN 10% 5 GM in IV 1 EA IV ONE (08:25)
[2023-12-02] MEDS: IMMUNE GLOBULIN 10% 10 GM in IV 1 EA IV ONE (08:26)
[2023-12-02 09:00] VITALS: BP 155/83; O2SAT 97
[2023-12-02 09:30] VITALS: BP 164/83; O2SAT 98
[2023-12-02 10:00] VITALS: BP 159/79; O2SAT 98
[2023-12-02 11:00] VITALS: BP 155/83; O2SAT 97
[2023-12-02 11:45] VITALS: BP 166/86; O2SAT 95
[2023-12-04] MEDS ORDERED: DULO1CAP4 PO (09:30)
== END 2023-12-02 11:45 | disposition home or self-care (01) ==
LOC: M INFU 07:45
PROVIDERS: ATTEND Specialist
DX: D80.1 Nonfamilial hypogammaglobulinemia (principal); Z88.8 Allergy status to other drugs, medicaments and biological substances; Z91.041 Radiographic dye allergy status; Z91.048 Other nonmedicinal substance allergy status
CPT/HCPCS: 96365; 96366; J1459

== ENCOUNTER → 2023-12-15 | Outpatient (CLI) | payer MEDICARE ==
[~2023-12-15] MED LIST changes: -ALBUTEROL SULFATE 2.5MG/0.5ML INH NEB SOLN INH PRN; -EPINEPHrine INJ 1 MG/ML 1ML AMP IM PRN; -NS 1,000 ML IV SCH; -diphenhydrAMINE 50MG/ML VIAL IV PRN; -methylPREDNISolone 125MG 2ML VIAL IV PRN
[2023-12-15 10:33] LABS: BASO % 0.2 % (0.0-1.0); EOS # 0.1 10^3/uL (0.0-0.5); EOS % 2.3 % (0.0-3.0); HEMOGLOBIN 11.2 g/dl (13.5-17.5); LYMPH # 0.2 10^3/uL (1.5-5.0); MEAN CORPUSCULAR HEMOGLOBIN 36.4 pg (27.0-33.0); MEAN CORPUSCULAR VOLUME 113.6 fl (80.0-96.0); MONO # 0.3 10^3/uL (0.0-0.8); MONO % 6.3 % (2.0-8.0); NEUTROPHILS # 4.1 10^3/uL (1.5-8.5); RED BLOOD COUNT 3.08 10^6/uL (4.30-6.10); WHITE BLOOD COUNT 4.8 10^3/uL (4.0-10.0)
[2023-12-15 10:36] LABS: PLATELET COUNT, AUTOMATED 80 10^3/uL (150-450)
[2023-12-15 10:40] LABS: ERYTHROCYTE SEDIMENTATION RATE 9 mm/hr (0-20)
[2023-12-15 11:13] LABS: C REACTIVE PROTEIN QUANTITATIV < 0.40 MG/DL (<1.0)
[2023-12-15 11:15] LABS: ALBUMIN 3.7 G/DL (3.2-5.2); ALKALINE PHOSPHATASE 125 U/L (46-116); ALT/SGPT 21 U/L (7.0-40); AST/SGOT 22 U/L (<34); BILIRUBIN,TOTAL 0.5 MG/DL (0.3-1.2); BLOOD UREA NITROGEN 30 MG/DL (9-23); CARBON DIOXIDE LEVEL 30 MMOL/L (20-31); CHLORIDE LEVEL 106 MMOL/L (98-107); CREATININE FOR GFR 1.06 MG/DL (0.70-1.30); GLOMERULAR FILTRATION RATE > 60.0 (>42); GLUCOSE, FASTING 82 MG/DL (74-106); POTASSIUM SERUM 4.2 MMOL/L (3.5-5.1); SODIUM LEVEL 141 MMOL/L (136-145); TOTAL PROTEIN 6.5 G/DL (5.7-8.2)
== END ==
LOC: M PLALAB 08:44
PROVIDERS: ATTEND Internal Medicine Infectious Disease
DX: M46.44 Discitis, unspecified, thoracic region (principal)

== ENCOUNTER 2023-12-30 08:00 | Outpatient (CLI) | payer MEDICARE ==
[~2023-12-30] VITALS: Ht 165.1 cm; Wt 68.1 kg
[~2023-12-30 08:00] MED LIST changes: +ALBUTEROL SULFATE 2.5MG/0.5ML INH NEB SOLN INH PRN; +EPINEPHrine INJ 1 MG/ML 1ML AMP IM PRN; +NS 1,000 ML IV SCH; +diphenhydrAMINE 50MG/ML VIAL IV PRN; +methylPREDNISolone 125MG 2ML VIAL IV PRN
[2023-12-30 08:09] VITALS: BP 156/77; O2SAT 98
[2023-12-30] MEDS: IMMUNE GLOBULIN 10% 5 GM in IV 1 EA IV ONE (08:22)
[2023-12-30] MEDS: IMMUNE GLOBULIN 10% 10 GM in IV 1 EA IV ONE (08:23)
[2023-12-30] MEDS: IMMUNE GLOBULIN 10% 20 GM in IV 1 EA IV ONE (08:24)
[2023-12-30 09:00] VITALS: BP 169/70; O2SAT 98
[2023-12-30 09:30] VITALS: BP 170/75; O2SAT 99
[2023-12-30 10:00] VITALS: BP 166/70; O2SAT 99
[2023-12-30 11:00] VITALS: BP 167/80; O2SAT 97
[2023-12-30 11:45] VITALS: BP 150/80; O2SAT 98
[2024-01-01] MEDS ORDERED: CEFD1CAP9 PO (08:06)
[2024-01-01] MEDS ORDERED: IRON1TAB2 PO (08:07)
[2024-01-01] MEDS ORDERED: CVS1CAP2 PO (08:08)
[2024-01-01] MEDS ORDERED: SENN-186 PO (08:36)
[2024-01-01] MEDS ORDERED: OXYC10TA12 PO (08:51)
[2024-01-01] MEDS ORDERED: MORP-69 PO (08:51)
== END 2023-12-30 11:45 ==
LOC: M INFU 08:00
PROVIDERS: ATTEND Specialist
DX: D80.1 Nonfamilial hypogammaglobulinemia (principal); Z88.8 Allergy status to other drugs, medicaments and biological substances
CPT/HCPCS: 96365; 96366; J1459

== ENCOUNTER → 2023-12-31 | Outpatient (REF) | payer MEDICARE ==
[~2023-12-31] MED LIST changes: -ALBUTEROL SULFATE 2.5MG/0.5ML INH NEB SOLN INH PRN; -EPINEPHrine INJ 1 MG/ML 1ML AMP IM PRN; +IRON1TAB2 PO; +MORP-69 PO; -NS 1,000 ML IV SCH; +OXYC10TA12 PO; +SENN-186 PO; -diphenhydrAMINE 50MG/ML VIAL IV PRN; -methylPREDNISolone 125MG 2ML VIAL IV PRN
[2023-12-31 17:17] LABS: BASO % 0.3 % (0.0-1.0); EOS # 0.1 10^3/uL (0.0-0.5); EOS % 1.7 % (0.0-3.0); HEMATOCRIT 34.6 % (42.0-52.0); HEMOGLOBIN 11.5 g/dl (13.5-17.5); LYMPH # 0.2 10^3/uL (1.5-5.0); LYMPH % 5.5 % (24.0-44.0); MEAN CORPUSCULAR HEMOGLOBIN 37.6 pg (27.0-33.0); MEAN CORPUSCULAR HGB CONC 33.2 g/dl (32.0-36.5); MEAN CORPUSCULAR VOLUME 113.1 fl (80.0-96.0); MONO # 0.2 10^3/uL (0.0-0.8); MONO % 6.8 % (2.0-8.0); NEUTROPHILS # 2.5 10^3/uL (1.5-8.5); NEUTROPHILS % 85.7 % (36.0-66.0); RED BLOOD COUNT 3.06 10^6/uL (4.30-6.10); WHITE BLOOD COUNT 2.9 10^3/uL (4.0-10.0)
[2023-12-31 17:20] LABS: PLATELET COUNT, AUTOMATED 63 10^3/uL (150-450)
== END ==
LOC: M LAB REF 16:29
PROVIDERS: ATTEND Family Medicine Addiction Medicine
DX: C85.90 Non-Hodgkin lymphoma, unspecified, unspecified site (principal)

== ENCOUNTER → 2024-01-01 | Outpatient (CLI) | payer MEDICARE ==
[~2024-01-01] VITALS: Ht 165.1 cm; Wt 68.5 kg
[~2024-01-01] MED LIST changes: +DICL50TA2 PO; +LYRI150C PO; +PANT40TA29 PO; +TORS20TA2 PO
[2024-01-01 08:02] VITALS: BP 171/84; O2SAT 97
== END ==
LOC: M PAL 07:38
PROVIDERS: ATTEND Nurse Practitioner Adult Health
DX: C82.90 Follicular lymphoma, unspecified, unspecified site (principal); G89.3 Neoplasm related pain (acute) (chronic); G60.9 Hereditary and idiopathic neuropathy, unspecified; M48.54XA Collapsed vertebra, not elsewhere classified, thoracic region, initial encounter for fracture; K59.00 Constipation, unspecified; Z51.5 Encounter for palliative care; Z79.899 Other long term (current) drug therapy; Z88.8 Allergy status to other drugs, medicaments and biological substances; Z96.642 Presence of left artificial hip joint; Z82.41 Family history of sudden cardiac death; Z87.891 Personal history of nicotine dependence; Z88.0 Allergy status to penicillin; Z79.891 Long term (current) use of opiate analgesic

== ENCOUNTER → 2024-01-15 | Outpatient (CLI) | payer MEDICARE ==
[~2024-01-15] MED LIST changes: -DICL50TA2 PO; -LYRI150C PO; -PANT40TA29 PO; -TORS20TA2 PO
== END ==
LOC: M RAD 07:12
PROVIDERS: ATTEND Internal Medicine Critical Care Medicine
DX: J18.9 Pneumonia, unspecified organism (principal); J84.10 Pulmonary fibrosis, unspecified; S22.080A Wedge compression fracture of T11-T12 vertebra, initial encounter for closed fracture; Y93.9 Activity, unspecified; Y92.9 Unspecified place or not applicable

== ENCOUNTER → 2024-01-19 | Outpatient (CLI) | payer MEDICARE | LOC: M PLALAB 10:26 | PROVIDERS: ATTEND Internal Medicine Infectious Disease | DX: M46.44 Discitis, unspecified, thoracic region (principal) ==

== ENCOUNTER → 2024-02-03 | Outpatient (CLI) | payer MEDICARE ==
[~2024-02-03] MED LIST changes: +DICL50TA2 PO; +LYRI150C PO; +PANT40TA29 PO
== END ==
LOC: M WUC 15:31
PROVIDERS: ATTEND General Practice
DX: C82.13 Follicular lymphoma grade II, intra-abdominal lymph nodes (principal); Z96.642 Presence of left artificial hip joint; W19.XXXA Unspecified fall, initial encounter

== ENCOUNTER → 2024-02-09 | Outpatient (CLI) | payer MEDICARE ==
[~2024-02-09] MED LIST changes: +ACET-897 PO; +DICL100G10 TOP; +METH5SOL PO; +NARC1SPR; +PREG50CA PO; +TORS20TA2 PO
== END ==
LOC: M ONCR 09:13
PROVIDERS: ATTEND General Practice
DX: C82.13 Follicular lymphoma grade II, intra-abdominal lymph nodes (principal); R29.6 Repeated falls; T40.2X1A Poisoning by other opioids, accidental (unintentional), initial encounter; J81.0 Acute pulmonary edema; R06.02 Shortness of breath; R09.02 Hypoxemia; Z79.52 Long term (current) use of systemic steroids; Z79.891 Long term (current) use of opiate analgesic; Z79.899 Other long term (current) drug therapy; Z86.16 Personal history of COVID-19; Z87.891 Personal history of nicotine dependence; Z88.1 Allergy status to other antibiotic agents; Z92.3 Personal history of irradiation

== ENCOUNTER → 2024-02-11 | Outpatient (CLI) | payer MEDICARE ==
[~2024-02-11] MED LIST changes: -METH5SOL PO; -NARC1SPR; -PREG50CA PO
[2024-02-11 12:23] LABS: BASO % 0.4 % (0.0-1.0); EOS # 0.2 10^3/uL (0.0-0.5); EOS % 7.1 % (0.0-3.0); HEMOGLOBIN 10.7 g/dl (13.5-17.5); LYMPH # 0.1 10^3/uL (1.5-5.0); LYMPH % 5.5 % (24.0-44.0); MEAN CORPUSCULAR HEMOGLOBIN 36.8 pg (27.0-33.0); MEAN CORPUSCULAR HGB CONC 33.4 g/dl (32.0-36.5); MONO # 0.4 10^3/uL (0.0-0.8); MONO % 13.8 % (2.0-8.0); NEUTROPHILS # 1.8 10^3/uL (1.5-8.5); NEUTROPHILS % 72.4 % (36.0-66.0); RED BLOOD COUNT 2.91 10^6/uL (4.30-6.10); WHITE BLOOD COUNT 2.5 10^3/uL (4.0-10.0)
[2024-02-11 12:39] LABS: ERYTHROCYTE SEDIMENTATION RATE 36 mm/hr (0-20)
[2024-02-11 12:40] LABS: PLATELET COUNT, AUTOMATED 85 10^3/uL (150-450)
== END ==
LOC: M PLALAB 08:06
PROVIDERS: ATTEND Internal Medicine Infectious Disease
DX: M46.44 Discitis, unspecified, thoracic region (principal)

== ENCOUNTER → 2024-02-12 | Outpatient (CLI) | payer MEDICARE ==
[~2024-02-12] MED LIST changes: -ACET-897 PO; -DICL100G10 TOP
== END ==
LOC: M WUC 09:54
PROVIDERS: ATTEND Nurse Practitioner Family
DX: R06.02 Shortness of breath (principal); R30.0 Dysuria; J98.11 Atelectasis

== ENCOUNTER → 2024-02-18 | Outpatient (CLI) | payer MEDICARE ==
[~2024-02-18] VITALS: Ht 165.1 cm; Wt 72.9 kg
[~2024-02-18] MED LIST changes: +ACET-897 PO; +DICL100G10 TOP; +METH5SOL PO; +NARC1SPR; +PREG50CA PO
[2024-02-18 08:01] VITALS: BP 114/65; O2SAT 95
== END ==
LOC: M PAL 07:38
PROVIDERS: ATTEND Nurse Practitioner Adult Health
DX: G89.3 Neoplasm related pain (acute) (chronic) (principal); C82.90 Follicular lymphoma, unspecified, unspecified site; G60.9 Hereditary and idiopathic neuropathy, unspecified; M54.50 Low back pain, unspecified; D69.6 Thrombocytopenia, unspecified; I87.1 Compression of vein; R22.43 Localized swelling, mass and lump, lower limb, bilateral; K59.00 Constipation, unspecified; R29.6 Repeated falls; Z51.5 Encounter for palliative care; Z79.891 Long term (current) use of opiate analgesic; Z79.899 Other long term (current) drug therapy; Z88.0 Allergy status to penicillin; Z88.1 Allergy status to other antibiotic agents; Z88.8 Allergy status to other drugs, medicaments and biological substances; Z96.642 Presence of left artificial hip joint; Z82.41 Family history of sudden cardiac death; Z87.891 Personal history of nicotine dependence; Z86.16 Personal history of COVID-19; Z87.440 Personal history of urinary (tract) infections

== ENCOUNTER 2024-02-25 10:53 | Emergency (ER) | payer MEDICARE ==
[~2024-02-25] VITALS: Ht 165.1 cm; Wt 69.2 kg
[~2024-02-25 10:53] MED LIST changes: -METH5SOL PO; -NARC1SPR; -PREG50CA PO
[2024-02-25] MEDS: traMADol 50 MG TAB PO ONE (17:03)
[2024-02-25] MEDS ORDERED: TRAM50TA2 PO (18:15)
[2024-02-25 18:23] VITALS: BP 181/84; TEMP 98; O2SAT 95
[2024-02-29] MEDS ORDERED: ELIQ5TAB PO (10:12)
[2024-02-29] MEDS ORDERED: ACET-683 PO (10:12)
[2024-02-29] MEDS ORDERED: METH5SOL PO (12:48)
[2024-02-29] MEDS ORDERED: PREG50CA PO (12:48)
[2024-02-29] MEDS ORDERED: NARC1SPR (13:05)
== END 2024-02-25 18:44 | disposition home or self-care (01) ==
LOC: M ED 10:53
DX: G89.29 Other chronic pain (principal); M54.9 Dorsalgia, unspecified; Z88.8 Allergy status to other drugs, medicaments and biological substances; Z91.041 Radiographic dye allergy status; K21.9 Gastro-esophageal reflux disease without esophagitis; C82.90 Follicular lymphoma, unspecified, unspecified site; I82.513 Chronic embolism and thrombosis of femoral vein, bilateral; Z79.899 Other long term (current) drug therapy

== ENCOUNTER → 2024-02-29 | Outpatient (CLI) | payer MEDICARE ==
[~2024-02-29] VITALS: Ht 165.1 cm; Wt 69.3 kg
[~2024-02-29] MED LIST changes: -DOXY-323 PO; +DOXY-441 PO; +DULO1CAP6 PO; +GABA-1172; +GABA-1172 PO; -GABA-282; -GABA-282 PO; +METH5SOL PO; +NARC1SPR; +PREG50CA PO
[2024-02-29 10:04] VITALS: BP 130/72; O2SAT 95
== END ==
LOC: M PAL 09:53
PROVIDERS: ATTEND Nurse Practitioner Adult Health
DX: G89.3 Neoplasm related pain (acute) (chronic) (principal); G60.9 Hereditary and idiopathic neuropathy, unspecified; C82.90 Follicular lymphoma, unspecified, unspecified site; M54.50 Low back pain, unspecified; M54.18 Radiculopathy, sacral and sacrococcygeal region; I87.1 Compression of vein; R22.43 Localized swelling, mass and lump, lower limb, bilateral; K59.00 Constipation, unspecified; Z51.5 Encounter for palliative care; Z79.01 Long term (current) use of anticoagulants; Z79.891 Long term (current) use of opiate analgesic; Z79.899 Other long term (current) drug therapy; Z91.041 Radiographic dye allergy status; Z88.1 Allergy status to other antibiotic agents; Z96.642 Presence of left artificial hip joint; Z82.41 Family history of sudden cardiac death; Z87.891 Personal history of nicotine dependence; Z86.16 Personal history of COVID-19; Z87.440 Personal history of urinary (tract) infections; Z86.718 Personal history of other venous thrombosis and embolism
CPT/HCPCS: 93005; G0463

== ENCOUNTER → 2024-03-02 | Outpatient (POV) | payer MEDICARE ==
[~2024-03-02] VITALS: Ht 165.1 cm; Wt 68.1 kg
[2024-03-02 15:55] VITALS: BP 131/64; O2SAT 95
== END ==
LOC: M IRPOV 15:43
PROVIDERS: ATTEND Radiology Diagnostic Radiology
DX: M54.6 Pain in thoracic spine (principal); M21.371 Foot drop, right foot; M40.14 Other secondary kyphosis, thoracic region; I82.593 Chronic embolism and thrombosis of other specified deep vein of lower extremity, bilateral; I87.2 Venous insufficiency (chronic) (peripheral); R60.0 Localized edema; Z79.01 Long term (current) use of anticoagulants; Z85.79 Personal history of other malignant neoplasms of lymphoid, hematopoietic and related tissues; Z86.718 Personal history of other venous thrombosis and embolism; Z92.21 Personal history of antineoplastic chemotherapy; Z92.3 Personal history of irradiation

== ENCOUNTER → 2024-03-07 | Outpatient (CLI) | payer MEDICARE ==
[2024-03-07 18:24] LABS: BASO % 0.8 % (0.0-1.0); EOS # 0.4 10^3/uL (0.0-0.5); EOS % 9.1 % (0.0-3.0); HEMATOCRIT 32.7 % (42.0-52.0); HEMOGLOBIN 10.7 g/dl (13.5-17.5); LYMPH # 0.2 10^3/uL (1.5-5.0); MEAN CORPUSCULAR HEMOGLOBIN 37.3 pg (27.0-33.0); MEAN CORPUSCULAR HGB CONC 32.7 g/dl (32.0-36.5); MEAN CORPUSCULAR VOLUME 113.9 fl (80.0-96.0); MONO # 0.5 10^3/uL (0.0-0.8); MONO % 13.6 % (2.0-8.0); NEUTROPHILS # 2.7 10^3/uL (1.5-8.5); PLATELET COUNT, AUTOMATED 124 10^3/uL (150-450); RED BLOOD COUNT 2.87 10^6/uL (4.30-6.10); WHITE BLOOD COUNT 3.8 10^3/uL (4.0-10.0)
== END ==
LOC: M WUC 11:29
PROVIDERS: ATTEND Nurse Practitioner
DX: C82.28 Follicular lymphoma grade III, unspecified, lymph nodes of multiple sites (principal)

== ENCOUNTER → 2024-03-10 | Outpatient (CLI) | payer MEDICARE ==
[~2024-03-10] VITALS: Ht 165.1 cm; Wt 72.7 kg
[2024-03-10 15:06] VITALS: BP 150/68; O2SAT 96
== END ==
LOC: M PAL 14:56
PROVIDERS: ATTEND Family Medicine
DX: G89.29 Other chronic pain (principal); M54.9 Dorsalgia, unspecified; Z51.5 Encounter for palliative care; Z79.01 Long term (current) use of anticoagulants; Z79.891 Long term (current) use of opiate analgesic; Z79.899 Other long term (current) drug therapy; Z91.041 Radiographic dye allergy status; Z88.1 Allergy status to other antibiotic agents

== ENCOUNTER → 2024-03-22 | Outpatient (CLI) | payer MEDICARE ==
[~2024-03-22] VITALS: Ht 170.2 cm; Wt 72.8 kg
[2024-03-22 11:41] VITALS: BP 119/69; O2SAT 95
== END ==
LOC: M PAL 11:31
PROVIDERS: ATTEND Nurse Practitioner Adult Health
DX: G89.3 Neoplasm related pain (acute) (chronic) (principal); M54.50 Low back pain, unspecified; M54.18 Radiculopathy, sacral and sacrococcygeal region; K59.00 Constipation, unspecified; R22.43 Localized swelling, mass and lump, lower limb, bilateral; C82.9A Follicular lymphoma, unspecified, in remission; I87.1 Compression of vein; Z51.5 Encounter for palliative care; Z79.891 Long term (current) use of opiate analgesic; Z79.899 Other long term (current) drug therapy; Z91.041 Radiographic dye allergy status; Z88.1 Allergy status to other antibiotic agents; Z96.642 Presence of left artificial hip joint; Z82.41 Family history of sudden cardiac death; Z87.891 Personal history of nicotine dependence; Z86.16 Personal history of COVID-19; Z87.440 Personal history of urinary (tract) infections; Z86.718 Personal history of other venous thrombosis and embolism

== ENCOUNTER → 2024-03-23 | Outpatient (REF) | payer MEDICARE ==
[2024-03-23 16:43] LABS: HEMATOCRIT 33.1 % (42.0-52.0); HEMOGLOBIN 10.7 g/dl (13.5-17.5); MEAN CORPUSCULAR HEMOGLOBIN 36.6 pg (27.0-33.0); MEAN CORPUSCULAR HGB CONC 32.3 g/dl (32.0-36.5); MEAN CORPUSCULAR VOLUME 113.4 fl (80.0-96.0); PLATELET COUNT, AUTOMATED 103 10^3/uL (150-450); RED BLOOD COUNT 2.92 10^6/uL (4.30-6.10); WHITE BLOOD COUNT 3.5 10^3/uL (4.0-10.0)
[2024-03-23 17:08] LABS: INR 1.02; PROTHROMBIN TIME 13.1 SECONDS (12.5-14.5)
[2024-03-23 17:11] LABS: ALBUMIN 3.5 G/DL (3.2-5.2); ALKALINE PHOSPHATASE 137 U/L (46-116); ALT/SGPT 19 U/L (7.0-40); AST/SGOT 33 U/L (<34); BILIRUBIN,TOTAL 0.4 MG/DL (0.3-1.2); BLOOD UREA NITROGEN 15 MG/DL (9-23); CALCIUM LEVEL 9.6 MG/DL (8.3-10.6); CARBON DIOXIDE LEVEL 35 MMOL/L (20-31); CHLORIDE LEVEL 103 MMOL/L (98-107); CREATININE FOR GFR 1.09 MG/DL (0.70-1.30); GLOMERULAR FILTRATION RATE > 60.0 (>42); GLUCOSE, FASTING 95 MG/DL (74-106); POTASSIUM SERUM 3.5 MMOL/L (3.5-5.1); SODIUM LEVEL 142 MMOL/L (136-145)
== END ==
LOC: M LAB REF 16:23
PROVIDERS: ATTEND Family Medicine Addiction Medicine
DX: M54.50 Low back pain, unspecified (principal); Z51.89 Encounter for other specified aftercare; Z79.899 Other long term (current) drug therapy

== ENCOUNTER → 2024-03-29 | Outpatient (CLI) | payer MEDICARE ==
[~2024-03-29] MED LIST changes: +ACETAMINOPHEN 325 MG TAB PO PRN; +KETAMINE HCL 200MG/20ML VIAL As Ordered ONE; +LIDOCAINE 1% MDV 20ML VIAL As Ordered ONE; +MIDAZOLAM INJ 2MG/2ML VIAL As Ordered ONE; +MORPHINE 10 MG/ML 1ML VIAL IV PRN; +PERCOCET 5MG/325MG TAB PO PRN; +ceFAZolin 2 GM/D5W 50 ML IV BAG As Ordered ONE; +dexmedeTOMIDine (4MCG/ML)200MCG/50ML BTL (PRECEDEX) As Ordered ONE; +fentaNYL 100 MCG/2 ML INJECTION As Ordered ONE; +propofoL 200 MG/20 ML VIAL As Ordered ONE
[2024-03-29 07:27] VITALS: TEMP 98.3
[2024-03-29] MEDS: ceFAZolin SOD 2 GM in IV 1 EA IV ONE (08:40)
[2024-03-29 11:45] VITALS: BP 166/79; O2SAT 96
== END ==
LOC: M IRPRO 07:01
PROVIDERS: ATTEND Radiology Diagnostic Radiology
DX: S22.088A Other fracture of T11-T12 vertebra, initial encounter for closed fracture (principal); X58.XXXA Exposure to other specified factors, initial encounter; Y92.9 Unspecified place or not applicable
CPT/HCPCS: 22513; 72070; 88305; 88311; C1062; C1889; J0690; J2250; J3010

== ENCOUNTER → 2024-04-19 | Outpatient (REF) | payer MEDICARE ==
[~2024-04-19] MED LIST changes: -ACETAMINOPHEN 325 MG TAB PO PRN; -KETAMINE HCL 200MG/20ML VIAL As Ordered ONE; -LIDOCAINE 1% MDV 20ML VIAL As Ordered ONE; -MIDAZOLAM INJ 2MG/2ML VIAL As Ordered ONE; -MORPHINE 10 MG/ML 1ML VIAL IV PRN; -PERCOCET 5MG/325MG TAB PO PRN; -ceFAZolin 2 GM/D5W 50 ML IV BAG As Ordered ONE; -dexmedeTOMIDine (4MCG/ML)200MCG/50ML BTL (PRECEDEX) As Ordered ONE; -fentaNYL 100 MCG/2 ML INJECTION As Ordered ONE; -propofoL 200 MG/20 ML VIAL As Ordered ONE
[2024-04-20 14:10] LABS: BASO % 0.5 % (0.0-1.0); EOS # 0.3 10^3/uL (0.0-0.5); EOS % 6.3 % (0.0-3.0); HEMATOCRIT 34.4 % (42.0-52.0); HEMOGLOBIN 11.1 g/dl (13.5-17.5); LYMPH # 0.2 10^3/uL (1.5-5.0); LYMPH % 4.5 % (24.0-44.0); MEAN CORPUSCULAR HEMOGLOBIN 35.6 pg (27.0-33.0); MEAN CORPUSCULAR HGB CONC 32.3 g/dl (32.0-36.5); MEAN CORPUSCULAR VOLUME 110.3 fl (80.0-96.0); MONO # 0.4 10^3/uL (0.0-0.8); MONO % 11.1 % (2.0-8.0); NEUTROPHILS # 3.1 10^3/uL (1.5-8.5); NEUTROPHILS % 77.1 % (36.0-66.0); PLATELET COUNT, AUTOMATED 111 10^3/uL (150-450); RED BLOOD COUNT 3.12 10^6/uL (4.30-6.10)
== END ==
LOC: M LAB REF 12:52
PROVIDERS: ATTEND Student in an Organized Health Care Education/Training Program
DX: C85.90 Non-Hodgkin lymphoma, unspecified, unspecified site (principal)

== ENCOUNTER → 2024-05-02 | Outpatient (CLI) | payer MEDICARE ==
[~2024-05-02] VITALS: Ht 165.1 cm; Wt 68.9 kg
[2024-05-02 09:22] VITALS: BP 152/79; O2SAT 95
== END ==
LOC: M PAL 09:15
PROVIDERS: ATTEND Nurse Practitioner Adult Health
DX: G89.3 Neoplasm related pain (acute) (chronic) (principal); M54.50 Low back pain, unspecified; M25.551 Pain in right hip; M25.552 Pain in left hip; R60.0 Localized edema; K59.00 Constipation, unspecified; C82.9A Follicular lymphoma, unspecified, in remission; I87.1 Compression of vein; Z51.5 Encounter for palliative care; Z79.01 Long term (current) use of anticoagulants; Z79.891 Long term (current) use of opiate analgesic; Z79.899 Other long term (current) drug therapy; Z91.041 Radiographic dye allergy status; Z88.0 Allergy status to penicillin; Z88.1 Allergy status to other antibiotic agents; Z96.642 Presence of left artificial hip joint; Z82.41 Family history of sudden cardiac death; Z87.891 Personal history of nicotine dependence; Z86.718 Personal history of other venous thrombosis and embolism; R29.6 Repeated falls

== ENCOUNTER → 2024-05-18 | Outpatient (POV) | payer MEDICARE ==
[~2024-05-18] VITALS: Ht 165.1 cm; Wt 68.1 kg
[2024-05-18 15:14] VITALS: BP 153/82; O2SAT 96
== END ==
LOC: M IRPOV 14:52
PROVIDERS: ATTEND Radiology Diagnostic Radiology
DX: Z48.89 Encounter for other specified surgical aftercare (principal); Z88.8 Allergy status to other drugs, medicaments and biological substances; Z91.041 Radiographic dye allergy status

== ENCOUNTER → 2024-06-16 | Outpatient (CLI) | payer MEDICARE ==
[~2024-06-16] VITALS: Ht 165.1 cm; Wt 69.0 kg
[2024-06-16 15:05] VITALS: BP 166/77; O2SAT 98
== END ==
LOC: M PAL 14:40
PROVIDERS: ATTEND Family Medicine
DX: Z51.5 Encounter for palliative care (principal); M54.9 Dorsalgia, unspecified; Z98.890 Other specified postprocedural states; Z79.899 Other long term (current) drug therapy; Z79.01 Long term (current) use of anticoagulants; Z88.1 Allergy status to other antibiotic agents; Z88.8 Allergy status to other drugs, medicaments and biological substances; Z91.041 Radiographic dye allergy status

== ENCOUNTER → 2025-03-21 | Outpatient (CLI) | payer MEDICARE ==
[~2025-03-21] MED LIST changes: +ACYC200C10 PO; -ACYC200C8 PO; -EQL50TAB2 PO; -PRED50TA PO; +PRED50TA57 PO; -PREG50CA PO; +PREG50CA87 PO; +SENN-225 PO; -SENO8.6T5 PO; +VITA1TAB82 PO
== END ==
LOC: M RADPRO 09:49
PROVIDERS: ATTEND Internal Medicine Critical Care Medicine
DX: J98.6 Disorders of diaphragm (principal)